=== PATIENT | female | born 1930 | race American Indian/Alaskan Native ===

== ENCOUNTER 2017-08-11 14:03 | Inpatient (IN) | payer MEDICARE, MEDICAID ==
[2017-08-11 15:04] LABS: Hemoglobin 10.4 gm/dl (10.1-14.3); Mean Corpuscular HGB Conc 33 % (30-34); Mean Corpuscular Hemoglobin 27 pg (28-32); Mean Corpuscular Volume 81 fl (79-97); Platelet Count 135 K/mm3 (140-440); Red Blood Count 3.93 M/mm3 (3.65-5.03); Red Cell Distribution Width 13.4 % (13.2-15.2); White Blood Count 6.6 K/mm3 (4.5-11.0)
[2017-08-11 15:20] LABS: Chloride 99.5 mmol/L (98-107); Potassium 4.5 mmol/L (3.6-5.0)
[2017-08-11 15:49] LABS: Basophils % (Manual) 0 % (0.0-1.8); Blastocytes % (Manual) 0 %; Eosinophils % (Manual) 0 % (0.0-4.3)
[2017-08-11 15:50] LABS: Anisocytosis 1+
[2017-08-11 15:51] LABS: Diff Status Complete; Elliptocytes Few; Ovalocytes 1+; Platelet Estimate Consistent w Auto
--- NOTE | 2017-08-11 17:03 | Emergency Department Report ---
HPI - General Chief Complaint: Weakness Time Seen by Provider: 08/11/17 16:27 - HPI HPI: Room 10 The patient is an 87-year-old female presenting with chief complaint of abdominal pain/weakness. Patient informed triage that she was weak for 1 day. During my interview when I asked the patient was she came to the emergency department she replies she has had "pain all in my stomach for 2 days." Patient does admit to nausea and vomiting but denies diarrhea. Patient denies any history of fever. Patient complains of cramping in her legs occasionally but otherwise denies any other forms of pain Location: [See above] Duration: 2 days Quality: Pain Severity: Currently 0/10 Modifying factors: [see above] Context: [see above] Mode of transportation: [not driving] ED Past Medical Hx - Past Medical History Hx Hypertension: Yes Hx Diabetes: Yes Hx Dementia: Yes - Surgical History Past Surgical History?: No - Family History Family history: no significant - Social History Smoking Status: Current Some Day Smoker Substance Use Type: None - Medications Home Medications: Home Medications Medication Instructions Recorded Confirmed Last Taken Type Donepezil HCl [Donepezil HCl Odt] 10 mg PO QHS 07/13/16 07/13/16 Unknown History Folic Acid [Folvite] 1 mg PO QDAY 07/13/16 07/13/16 Unknown History Hydrochlorothiazide [HCTZ] 25 mg PO QDAY 07/13/16 07/13/16 Unknown History Insulin Aspart Prot/Aspart(Nf) 10 units SUB-Q TID 07/13/16 07/13/16 Unknown History [NovoLOG Mix 70/30 VIAL] Losartan [Cozaar] 100 mg PO QDAY 07/13/16 07/13/16 Unknown History Lovastatin [Altoprev] 40 mg PO QPM 07/13/16 07/13/16 Unknown History NIFEdipine [Nifedipine ER] 60 mg PO QDAY 07/13/16 07/13/16 Unknown History Solifenacin Succinate [Vesicare] 5 mg PO QDAY 07/13/16 07/13/16 Unknown History risperiDONE [RisperiDONE] 1 mg PO QHS 07/13/16 07/13/16 Unknown History Clopidogrel [Plavix] 75 mg PO QDAY #30 tablet 07/20/16 Unknown Rx ED Review of Systems ROS: Stated complaint: GENERAL WEAKNESS Other details as noted in HPI Eyes: denies: eye pain ENT: denies: throat pain Cardiovascular: denies: chest pain Gastrointestinal: abdominal pain, nausea, vomiting. denies: diarrhea Genitourinary: denies: dysuria Musculoskeletal: denies: back pain Neurological: denies: headache Physical Exam - Physical Exam Vital Signs: Vital Signs 08/11/17 08/11/17 08/11/17 14:08 14:35 15:00 Temperature 97.8 F 97.9 F Pulse Rate 72 74 Respiratory 18 14 Rate Blood Pressure 118/73 Blood Pressure 110/66 [Right] O2 Sat by Pulse 99 99 89 Oximetry 08/11/17 08/11/17 15:15 15:30 Temperature Pulse Rate 73 71 Respiratory 13 13 Rate Blood Pressure 104/42 89/47 Blood Pressure [Right] O2 Sat by Pulse 100 98 Oximetry Physical Exam: GENERAL: The patient is well-developed well-nourished female lying on stretcher not appearing to be in acute distress. [] HEENT: Normocephalic. Atraumatic. Extraocular motions are intact. NECK: Supple. Trachea midline CHEST/LUNGS: Clear to auscultation. There is no respiratory distress noted. HEART/CARDIOVASCULAR: Regular. There is no tachycardia. There is no gallop rub or murmur. ABDOMEN: Abdomen is soft, nontender. Patient has normal bowel sounds. There is no abdominal distention. SKIN: There is no rash. There is no edema. There is no diaphoresis. NEURO: The patient is awake and alert. The patient is cooperative. The patient has normal speech MUSCULOSKELETAL: There is no evidence of acute injury. ED Course Vital Signs 08/11/17 08/11/17 08/11/17 14:08 14:35 15:00 Temperature 97.8 F 97.9 F Pulse Rate 72 74 Respiratory 18 14 Rate Blood Pressure 118/73 Blood Pressure 110/66 [Right] O2 Sat by Pulse 99 99 89 Oximetry 08/11/17 08/11/17 15:15 15:30 Temperature Pulse Rate 73 71 Respiratory 13 13 Rate Blood Pressure 104/42 89/47 Blood Pressure [Right] O2 Sat by Pulse 100 98 Oximetry ED Medical Decision Making - Lab Data Result diagrams: 08/11/17 14:39 08/11/17 14:39 Laboratory Tests 08/11/17 08/11/17 08/11/17 14:39 14:39 14:39 WBC 6.6 RBC 3.93 Hgb 10.4 Hct 32.0 MCV 81 MCH 27 L MCHC 33 RDW 13.4 Plt Count 135 L Lymph % (Auto) Not Reportable [facility] % (Auto) Not Reportable Eos % (Auto) Not Reportable Baso % (Auto) Not Reportable Lymph # Not Reportable [facility] # Not Reportable Eos # Not Reportable Baso # Not Reportable Add Manual Diff Complete Total Counted 100 Seg Neuts % (Manual) 73.0 H Band Neutrophils % 0 Lymphocytes % (Manual) 19.0 Reactive Lymphs % (Man) 0 Monocytes % (Manual) 8.0 H Eosinophils % (Manual) 0 Basophils % (Manual) 0 Metamyelocytes % 0 Myelocytes % 0 Promyelocytes % 0 Blast Cells % 0 Nucleated RBC % Not Reportable Seg Neutrophils # Not Reportable Seg Neutrophils # Man 4.8 Band Neutrophils # 0.0 Lymphocytes # (Manual) 1.3 Abs React Lymphs (Man) 0.0 Monocytes # (Manual) 0.5 Eosinophils # (Manual) 0.0 Basophils # (Manual) 0.0 Metamyelocytes # 0.0 Myelocytes # 0.0 Promyelocytes # 0.0 Blast Cells # 0.0 WBC Morphology Not Reportable Hypersegmented Neuts Not Reportable Hyposegmented Neuts Not Reportable Hypogranular Neuts Not Reportable Smudge Cells Not Reportable Toxic Granulation Not Reportable Toxic Vacuolation Not Reportable Dohle Bodies Not Reportable Pelger-Huet Anomaly Not Reportable [place] Rods Not Reportable Platelet Estimate Consistent w auto Clumped Platelets Not Reportable Plt Clumps, EDTA Not Reportable Large Platelets Not Reportable Giant Platelets Not Reportable Platelet Satelliting Not Reportable Plt Morphology Comment Not Reportable RBC Morphology Not Reportable Dimorphic RBCs Not Reportable Polychromasia Not Reportable Hypochromasia Not Reportable Poikilocytosis Not Reportable Anisocytosis 1+ Microcytosis Not Reportable Macrocytosis Not Reportable Spherocytes Not Reportable Pappenheimer Bodies Not Reportable Sickle Cells Not Reportable Target Cells Not Reportable Tear Drop Cells Not Reportable Ovalocytes 1+ Helmet Cells Not Reportable Ware-Gervais Bodies Not Reportable [place] Rings Not Reportable Donny Cells Not Reportable Bite Cells Not Reportable Crenated Cell Not Reportable Elliptocytes Few Acanthocytes (Spur) Not Reportable Rouleaux Not Reportable Hemoglobin C Crystals Not Reportable Schistocytes Not Reportable Malaria parasites Not Reportable Paul Bodies Not Reportable Hem Pathologist Commnt No Sodium 140 Potassium 4.5 Chloride 99.5 Carbon Dioxide 25 Anion Gap 20 BUN 53 H Creatinine 2.8 H Estimated GFR 19 BUN/Creatinine Ratio 19 Glucose 76 Calcium 9.0 Troponin T 0.061 H Triglycerides 74 Cholesterol 92 LDL Cholesterol Direct 46 L HDL Cholesterol 32 L Cholesterol/HDL Ratio 2.87 TSH 1.820 Urine Color Urine Turbidity Urine pH Ur Specific [place] Urine Protein Urine Glucose (UA) Urine Ketones Urine Blood Urine Nitrite Urine Bilirubin Urine Urobilinogen Ur Leukocyte Esterase Urine WBC (Auto) Urine RBC (Auto) Urine Mucus 08/11/17 16:45 WBC RBC Hgb Hct MCV MCH MCHC RDW Plt Count Lymph % (Auto) [facility] % (Auto) Eos % (Auto) Baso % (Auto) Lymph # [facility] # Eos # Baso # Add Manual Diff Total Counted Seg Neuts % (Manual) Band Neutrophils % Lymphocytes % (Manual) Reactive Lymphs % (Man) Monocytes % (Manual) Eosinophils % (Manual) Basophils % (Manual) Metamyelocytes % Myelocytes % Promyelocytes % Blast Cells % Nucleated RBC % Seg Neutrophils # Seg Neutrophils # Man Band Neutrophils # Lymphocytes # (Manual) Abs React Lymphs (Man) Monocytes # (Manual) Eosinophils # (Manual) Basophils # (Manual) Metamyelocytes # Myelocytes # Promyelocytes # Blast Cells # WBC Morphology Hypersegmented Neuts Hyposegmented Neuts Hypogranular Neuts Smudge Cells Toxic Granulation Toxic Vacuolation Dohle Bodies Pelger-Huet Anomaly [place] Rods Platelet Estimate Clumped Platelets Plt Clumps, EDTA Large Platelets Giant Platelets Platelet Satelliting Plt Morphology Comment RBC Morphology Dimorphic RBCs Polychromasia Hypochromasia Poikilocytosis Anisocytosis Microcytosis Macrocytosis Spherocytes Pappenheimer Bodies Sickle Cells Target Cells Tear Drop Cells Ovalocytes Helmet Cells Ware-Gervais Bodies [place] Rings Veg[place] Cells Bite Cells Crenated Cell Elliptocytes Acanthocytes (Spur) Rouleaux Hemoglobin C Crystals Schistocytes Malaria parasites Paul Bodies Hem Pathologist Commnt Sodium Potassium Chloride Carbon Dioxide Anion Gap BUN Creatinine Estimated GFR BUN/Creatinine Ratio Glucose Calcium Troponin T Triglycerides Cholesterol LDL Cholesterol Direct HDL Cholesterol Cholesterol/HDL Ratio TSH Urine Color Yellow Urine Turbidity Clear Urine pH 6.0 Ur Specific [place] 1.018 Urine Protein <15 mg/dl Urine Glucose (UA) Neg Urine Ketones Neg Urine Blood Neg Urine Nitrite Neg Urine Bilirubin Neg Urine Urobilinogen < 2.0 Ur Leukocyte Esterase Neg Urine WBC (Auto) < 1.0 Urine RBC (Auto) < 1.0 Urine Mucus Few - Radiology Data Radiology results: report reviewed (CT abdomen and pelvis), image reviewed (CT abdomen and pelvis) - Differential Diagnosis partial small bowel obstruction, gastritis, gastroenteritis Critical care attestation.: If time is entered above; I have spent that time in minutes in the direct care of this critically ill patient, excluding procedure time. ED Disposition Clinical Impression: Acute renal insufficiency, Abdominal pain Disposition: 09 OP ADMIT IP TO THIS HOSP Is pt being admited?: Yes Does the pt Need Aspirin: No Condition: Fair Referrals: PRIMARY CARE, [Primary Care Provider] - 3-5 Days Time of Disposition: 18:41 (hospitalist paged (Dr. Gayle))
[2017-08-11 17:10] LABS: Bilirubin,Urine NEG (Negative); Blood,Urine NEG (Negative); Ketones,Urine NEG (Negative); Leukocyte Esterase,Urine NEG (Negative); Mucus,Urine FEW /HPF; Nitrite,Urine NEG (Negative); Protein,Urine <15 mg/dL mg/dL (Negative); RBC,Urine < 1.0 /HPF (0.0-6.0); Urobilinogen,Urine < 2.0 mg/dL (<2.0)
[2017-08-11 17:16] LABS: WBC,Urine < 1.0 /HPF (0.0-6.0)
--- NOTE | 2017-08-11 18:27 | Cat Scan Report ---
FINAL REPORT EXAM: CT ABDOMEN PELVIS WO CON HISTORY: diffuse abdominal pain, acute renal insufficiency TECHNIQUE: Standard unenhanced CT of the abdomen and pelvis. Coronal and sagittal reconstruction was also performed. PRIORS: None. FINDINGS: In the region of the pancreatic body, to the left of midline, there is a 5.5 x 5.7 x 6.4 cm low-density rounded well-defined cystic focus. Calcification of the wall of this focus is seen (axial image 51). There is close approximation of the splenic artery along its posterior margin so that aneurysm is not excluded. Ultrasound may be of further help. There is a moderate hiatal hernia. Concentric wall thickening of the distal esophagus and the area of the hiatal hernia is seen. Within the abdomen, the liver, spleen, gallbladder, adrenal glands, and kidneys are unremarkable. No evidence for retroperitoneal or pelvic lymphadenopathy is seen. The bowel loops have normal caliber. No fluid collection, inflammatory change, or free air is seen within the abdomen or pelvis. The appendix is normal. Moderate calcification of the aorta is seen. Within the pelvis, the bladder is unremarkable. The uterus is enlarged containing numerous amorphous areas of calcification suggesting underlying fibroid formation. No evidence for mass or lymphadenopathy is seen in the pelvis. Images through the upper abdomen include the lung bases which demonstrate a 5.6 mm rounded density along the right minor fissure, likely a fissural lymph node (axial image 2). In the inferior right breast toward the 6 o'clock position, there is a lobulated soft tissue nodule measuring 1.9 x 1.9 cm (axial image 8). Bony structures show extensive hypertrophic facet joint degenerative changes from L4 through S1 bilaterally. Severe degenerative disc space narrowing at L2-L3 and L5-S1 is noted. IMPRESSION: 1. Rounded focus in the region of the body of the pancreas, probably a cyst with calcification in the wall. Due to its proximity to the splenic artery, and aneurysm is not entirely excluded. Ultrasound would be of further help. 2. Moderate hiatal hernia. Concentric wall thickening of the distal esophagus is noted. Esophagitis versus neoplasm is not excluded. 3. A lobulated soft tissue nodule involving the inferior aspect of the right breast towards 6:00 position. 4. Nonspecific nodule in the right middle lobe, probably a fissural lymph node in the minor fissure 5. Enlarged uterus containing multiple underlying fibroids 6. Extensive degenerative changes in the lower lumbar spine.
--- NOTE | 2017-08-11 18:50 | History and Physical Report ---
History of Present Illness Chief complaint: Pain right here History of present illness: 87 YO Female with HTN, DM, Dementia, Debility, Nicotine Dependence presents to ED for evaluation. Pt unable to provide history due to dementia and confusion, but history taken from ED staff, medical records. Pt acknowledges pain upon questioning, and points to the epigastric area on physical exam. As per ED staff , Pt reports "pain all in my stomach for 2 days." No reports of fever, chills, palpitations, NVD, syncope, trauma, or recent ill contacts. Pt seen and evaluated in ED and found to be confused, but able to protect her airway. 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 Pt admitted to telemetry. Past History Past Medical History: diabetes, hypertension, other (Dementia, Nicotine Dependence) Past Surgical History: No surgical history, Other (reviewed) Social history: single, smoking Family history: diabetes, hypertension Medications and Allergies Allergies Allergy/AdvReac Type Severity Reaction Status Date / Time No Known Allergies Allergy Unverified 07/13/16 09:05 Home Medications Medication Instructions Recorded Confirmed Last Taken Type Donepezil HCl [Donepezil HCl Odt] 10 mg PO QHS 07/13/16 08/11/17 Unknown History Folic Acid [Folvite] 1 mg PO DAILY 07/13/16 08/11/17 Unknown History Hydrochlorothiazide [HCTZ] 25 mg PO DAILY 07/13/16 08/11/17 Unknown History Insulin Aspart Prot/Aspart(Nf) 6 units SUB-Q TID 07/13/16 08/11/17 Unknown History [NovoLOG Mix 70/30 VIAL] Losartan [Cozaar] 100 mg PO DAILY 07/13/16 08/11/17 Unknown History Lovastatin [Altoprev] 40 mg PO QPM 07/13/16 08/11/17 Unknown History NIFEdipine [Nifedipine ER] 60 mg PO DAILY 07/13/16 08/11/17 Unknown History risperiDONE [RisperiDONE] 1 mg PO QHS 07/13/16 08/11/17 Unknown History Benztropine [Cogentin] 2 mg PO DAILY 08/11/17 08/11/17 Unknown History Clopidogrel [Plavix] 75 mg PO DAILY 08/11/17 08/11/17 Unknown History Mirabegron [Myrbetriq] 25 mg PO DAILY 08/11/17 08/11/17 Unknown History Sitagliptin Phosphate [Januvia] 100 mg PO DAILY 08/11/17 08/11/17 Unknown History Review of Systems ROS unobtainable: due to mental status Exam - Constitutional Vitals: Temp Pulse Resp BP Pulse Ox 97.9 F 78 14 125/48 100 08/11/17 14:35 08/11/17 18:30 08/11/17 18:30 08/11/17 18:30 08/11/17 18:30 General appearance: Present: mild distress - EENT Eyes: Present: PERRL ENT: hearing intact, clear oral mucosa - Neck Neck: Present: supple, normal ROM - Respiratory Respiratory effort: normal Respiratory: bilateral: CTA - Cardiovascular Heart Sounds: Present: S1 & S2. Absent: rub, click - Extremities Extremities: pulses symmetrical, No edema Peripheral Pulses: within normal limits - Abdominal General gastrointestinal: Present: soft, non-tender, non-distended, normal bowel sounds Female genitourinary: Present: normal - Integumentary Integumentary: Present: clear, dry, clammy, decreased turgor - Musculoskeletal Musculoskeletal: generalized weakness - Psychiatric Psychiatric: no intact judgment & insight, no memory intact - Neurologic Neurologic: no gait normal Results - Labs CBC & Chem 7: 08/11/17 14:39 08/11/17 14:39 Labs: Abnormal lab results 08/11/17 08/11/17 Range/Units 14:39 14:39 MCH 27 L (28-32) pg Plt Count 135 L (140-440) K/mm3 Seg Neuts % (Manual) 73.0 H (40.0-70.0) % Monocytes % (Manual) 8.0 H (0.0-7.3) % BUN 53 H (7-17) mg/dL Creatinine 2.8 H (0.7-1.2) mg/dL Troponin T 0.061 H (0.00-0.029) ng/mL LDL Cholesterol Direct 46 L (50-130) mg/dL HDL Cholesterol 32 L (40-59) mg/dL Assessment and Plan - Patient Problems (1) ACS (acute coronary syndrome) Current Visit: Yes Status: Acute Plan to address problem: Admit to telemetry: Admit to telemetry, serial cardiac enzymes, EKG, Echo, Cardiology consulted, morphine, Supplemental oxygen, nitro tabs, aspirin (2) ARF (acute renal failure) Current Visit: Yes Status: Acute Plan to address problem: Monitor uop q shift, urine electrolytes, supportive care. (3) HTN (hypertension) Current Visit: Yes Status: Acute Plan to address problem: monitor bp q shift, (4) Debility Current Visit: Yes Status: Acute Plan to address problem: Supportive care, (5) Diabetes Current Visit: No Status: Acute Plan to address problem: ADA diet, insulin, accu check (6) DVT prophylaxis Current Visit: Yes Status: Acute
[2017-08-11] MEDS ORDERED: MORPHINE IV PRN (18:57)
[2017-08-11] MEDS ORDERED: NITROSTAT SL PRN (18:57)
[2017-08-11] MEDS ORDERED: TYLENOL PO PRN (18:57)
[2017-08-11] MEDS ORDERED: SODIUM CHLORIDE FLUSH SYRINGE 10 ML IV PRN (18:57)
[2017-08-11] MEDS ORDERED: BABY ASPIRIN PO STA (18:57)
[2017-08-11] MEDS ORDERED: PROVENTIL IH PRN (18:57)
[2017-08-11] MEDS ORDERED: ZOFRAN IV PRN (18:57)
[2017-08-11] MEDS ORDERED: Fluarix Quad 2017-2018(36 MOS+ IM ONE (21:02)
[2017-08-11] MEDS: NACL 0.45% 1000 ML 1,000 ML IV SCH (21:22)
--- NOTE | 2017-08-12 11:16 | Consultation ---
History of Present Illness Consult date: 08/12/17 Requesting physician: TIFFANIE IRVIN Consult reason: other ("ACS") History of present illness: The pt is an 87 YO female with a past medical history significant for dementia, CVA, HTN, DM. She is previously unknown to our practice. She presented with c/o abdominal pain, nausea and vomiting. She is a rather poor historian and provides no additional details. She denies chest pain. Following admission, troponins were noted to be minimally elevated, serum Cr 2.8, and thus cardiology has been consulted. Past History Past Medical History: diabetes, hypertension, stroke, other (Dementia) Past Surgical History: No surgical history, Other (reviewed) Medications and Allergies Allergies Allergy/AdvReac Type Severity Reaction Status Date / Time No Known Allergies Allergy Unverified 07/13/16 09:05 Home Medications Medication Instructions Recorded Confirmed Last Taken Type Donepezil HCl [Donepezil HCl Odt] 10 mg PO QHS 07/13/16 08/11/17 Unknown History Folic Acid [Folvite] 1 mg PO DAILY 07/13/16 08/11/17 Unknown History Hydrochlorothiazide [HCTZ] 25 mg PO DAILY 07/13/16 08/11/17 Unknown History Insulin Aspart Prot/Aspart(Nf) 6 units SUB-Q TID 07/13/16 08/11/17 Unknown History [NovoLOG Mix 70/30 VIAL] Losartan [Cozaar] 100 mg PO DAILY 07/13/16 08/11/17 Unknown History Lovastatin [Altoprev] 40 mg PO QPM 07/13/16 08/11/17 Unknown History NIFEdipine [Nifedipine ER] 60 mg PO DAILY 07/13/16 08/11/17 Unknown History risperiDONE [RisperiDONE] 1 mg PO QHS 07/13/16 08/11/17 Unknown History Benztropine [Cogentin] 2 mg PO DAILY 08/11/17 08/11/17 Unknown History Clopidogrel [Plavix] 75 mg PO DAILY 08/11/17 08/11/17 Unknown History Mirabegron [Myrbetriq] 25 mg PO DAILY 08/11/17 08/11/17 Unknown History Sitagliptin Phosphate [Januvia] 100 mg PO DAILY 08/11/17 08/11/17 Unknown History Active Meds: Active Medications Acetaminophen (Tylenol) 650 mg PO Q4H PRN PRN Reason: Pain MILD(1-3)/Fever >100.5/MORALES Albuterol (Proventil) 2.5 mg IH Q4HRT PRN PRN Reason: Shortness Of Breath Sodium Chloride (Nacl 0.45% 1000 Ml) 1,000 mls @ 42 mls/hr IV DIRECT PRISCA Last Admin: 08/11/17 21:22 Dose: 42 mls/hr Influenza Virus Vaccine Quadrival (Fluarix Quad [id number](36 Mos+) 0.5 ml IM .ONCE ONE Stop: 08/12/17 12:01 Morphine Sulfate (Morphine) 2 mg IV Q4H PRN PRN Reason: Pain, Moderate (4-6) Nitroglycerin (Nitrostat) 0.4 mg SL Q5M PRN PRN Reason: Chest Pain Ondansetron HCl (Zofran) 4 mg IV Q8H PRN PRN Reason: N/V unrelieved by Reglan Sodium Chloride (Sodium Chloride Flush Syringe 10 Ml) 10 ml IV PRN PRN PRN Reason: LINE FLUSH Review of Systems All systems: negative Gastrointestinal: abdominal pain, nausea, vomiting Physical Examination Vital Signs Temp Pulse Resp BP Pulse Ox 97.8 F 72 18 118/73 99 08/11/17 14:08 08/11/17 14:08 08/11/17 14:08 08/11/17 14:08 08/11/17 14:08 General appearance: no acute distress HEENT: Positive: PERRL, Normocephaly, Mucus Membranes Moist Neck: Positive: neck supple, trachea midline Cardiac: Positive: Reg Rate and Rhythm, S1/S2 Lungs: Positive: clear to auscultation Neuro: Positive: Grossly Intact, Cranial Nerve 2-12 Intact Abdomen: Positive: Unremarkable, Soft, Active Bowel Sounds. Negative: Tender Skin: Positive: Clear. Negative: Rash, Wound Musculoskeletal: No Fluid Collection, No Pain, Normal Range of Motion Extremities: Absent: edema Results 08/11/17 14:39 08/11/17 14:39 Lipids 08/11/17 Range/Units 14:39 Triglycerides 74 (2-149) mg/dL Cholesterol 92 (50-199) mg/dL HDL Cholesterol 32 L (40-59) mg/dL Cholesterol/HDL Ratio 2.87 % CBC 08/11/17 Range/Units 14:39 WBC 6.6 (4.5-11.0) K/mm3 RBC 3.93 (3.65-5.03) M/mm3 Hgb 10.4 (10.1-14.3) gm/dl Hct 32.0 (30.3-42.9) % Plt Count 135 L (140-440) K/mm3 Lymph # Not Reportable [place] # Not Reportable Eos # Not Reportable Baso # Not Reportable Comprehensive Metabolic Panel 08/11/17 Range/Units 14:39 Sodium 140 (137-145) mmol/L Potassium 4.5 (3.6-5.0) mmol/L Chloride 99.5 (98-107) mmol/L Carbon Dioxide 25 (22-30) mmol/L BUN 53 H (7-17) mg/dL Creatinine 2.8 H (0.7-1.2) mg/dL Glucose 76 (65-100) mg/dL Calcium 9.0 (8.4-10.2) mg/dL - Imaging and Cardiology Echo: pending EKG: report reviewed, image reviewed EKG interpretations - Telemetry EKG Rhythm: Sinus Rhythm - EKG Sinus rhythms and dysrhythmias: sinus rhythm Assessment and Plan Assessment: Abdominal pain / nausea & vomiting Minimally elevated troponins - negative for AMI; trending downwards; ECG with NAF; pt denies chest pain Acute renal failure on ? CKD HTN DM H/o CVA per pt repot H/o dementia Plan: Obtain echo. No indication for ischemic evaluation at this time. Monitor renal indices. Recommend nephrology consultation per primary. The patient has been seen in conjunction with Dr. Joe Andrew who agrees with the assessment and plan of care.
[2017-08-12] MEDS ORDERED: Fluarix Quad 2017-2018(36 MOS+ IM ONE (12:00)
[2017-08-12] MEDS ORDERED: CITRATE OF MAGNESIA PO PRN (12:18)
[2017-08-12 12:55] LABS: Calcium 8.8 mg/dL (8.4-10.2); Chloride 102.8 mmol/L (98-107); Potassium 4.3 mmol/L (3.6-5.0)
[2017-08-12] MEDS ORDERED: D50W (25GM) Syringe IV PRN (17:01)
--- NOTE | 2017-08-12 17:18 | Progress Note ---
Assessment and Plan Assessment and plan: Epigastric/chest pain NSTEMI History of CVA Dementia Hypertension Debility Acute on chronic kidney disease - Cardiology consulted and echo was done showed diastolic dysfunction - No further cardiac workup needed - Appropriate home medications restarted - PT/OT consulted DVT prophylaxis - Heparin Disposition - Continue inpatient care History Interval history: Patient was seen and evaluated at the bedside, patient said she had epigastric pain, but at the time of examination didn't have any pain. No family member was in the room, patient has dementia. Hospitalist Physical - Physical exam Narrative exam: Not in cardiopulmonary distress. The patient appeared well nourished and normally developed. Vital signs as documented. Head exam is unremarkable. No scleral icterus . Neck is without jugular venous distension, thyromegaly, or carotid bruits. Lungs are clear to auscultation. Cardiac exam reveals regular rate and Rhythm. First and second heart sounds normal. No murmurs, rubs or gallops. Abdominal exam reveals normal bowel sounds, no masses, no organomegaly and no aortic enlargement. Extremities are nonedematous and both femoral and pedal pulses are normal. 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 No focal weakness. - Constitutional Vitals: Temp Pulse Resp BP Pulse Ox 97.6 F 68 18 112/52 99 08/12/17 08:06 08/12/17 12:00 08/12/17 08:06 08/12/17 08:07 08/12/17 08:07 General appearance: Present: no acute distress Results - Labs CBC & Chem 7: 08/11/17 14:39 08/12/17 11:57 Labs: Laboratory Last Values WBC 6.6 K/mm3 (4.5-11.0) 08/11/17 14:39 RBC 3.93 M/mm3 (3.65-5.03) 08/11/17 14:39 Hgb 10.4 gm/dl (10.1-14.3) 08/11/17 14:39 Hct 32.0 % (30.3-42.9) 08/11/17 14:39 MCV 81 fl (79-97) 08/11/17 14:39 MCH 27 pg (28-32) L 08/11/17 14:39 MCHC 33 % (30-34) 08/11/17 14:39 RDW 13.4 % (13.2-15.2) 08/11/17 14:39 Plt Count 135 K/mm3 (140-440) L 08/11/17 14:39 Lymph % (Auto) Not Reportable 08/11/17 14:39 [place] % (Auto) Not Reportable 08/11/17 14:39 Eos % (Auto) Not Reportable 08/11/17 14:39 Baso % (Auto) Not Reportable 08/11/17 14:39 Lymph # Not Reportable 08/11/17 14:39 [place] # Not Reportable 08/11/17 14:39 Eos # Not Reportable 08/11/17 14:39 Baso # Not Reportable 08/11/17 14:39 Add Manual Diff Complete 08/11/17 14:39 Total Counted 100 08/11/17 14:39 Seg Neuts % (Manual) 73.0 % (40.0-70.0) H 08/11/17 14:39 Band Neutrophils % 0 % 08/11/17 14:39 Lymphocytes % (Manual) 19.0 % (13.4-35.0) 08/11/17 14:39 Reactive Lymphs % (Man) 0 % 08/11/17 14:39 Monocytes % (Manual) 8.0 % (0.0-7.3) H 08/11/17 14:39 Eosinophils % (Manual) 0 % (0.0-4.3) 08/11/17 14:39 Basophils % (Manual) 0 % (0.0-1.8) 08/11/17 14:39 Metamyelocytes % 0 % 08/11/17 14:39 Myelocytes % 0 % 08/11/17 14:39 Promyelocytes % 0 % 08/11/17 14:39 Blast Cells % 0 % 08/11/17 14:39 Nucleated RBC % Not Reportable 08/11/17 14:39 Seg Neutrophils # Not Reportable 08/11/17 14:39 Seg Neutrophils # Man 4.8 K/mm3 (1.8-7.7) 08/11/17 14:39 Band Neutrophils # 0.0 K/mm3 08/11/17 14:39 Lymphocytes # (Manual) 1.3 K/mm3 (1.2-5.4) 08/11/17 14:39 Abs React Lymphs (Man) 0.0 K/mm3 08/11/17 14:39 Monocytes # (Manual) 0.5 K/mm3 (0.0-0.8) 08/11/17 14:39 Eosinophils # (Manual) 0.0 K/mm3 (0.0-0.4) 08/11/17 14:39 Basophils # (Manual) 0.0 K/mm3 (0.0-0.1) 08/11/17 14:39 Metamyelocytes # 0.0 K/mm3 08/11/17 14:39 Myelocytes # 0.0 K/mm3 08/11/17 14:39 Promyelocytes # 0.0 K/mm3 08/11/17 14:39 Blast Cells # 0.0 K/mm3 08/11/17 14:39 WBC Morphology Not Reportable 08/11/17 14:39 Hypersegmented Neuts Not Reportable 08/11/17 14:39 Hyposegmented Neuts Not Reportable 08/11/17 14:39 Hypogranular Neuts Not Reportable 08/11/17 14:39 Smudge Cells Not Reportable 08/11/17 14:39 Toxic Granulation Not Reportable 08/11/17 14:39 Toxic Vacuolation Not Reportable 08/11/17 14:39 Dohle Bodies Not Reportable 08/11/17 14:39 Pelger-Huet Anomaly Not Reportable 08/11/17 14:39 [place] Rods Not Reportable 08/11/17 14:39 Platelet Estimate Consistent w auto 08/11/17 14:39 Clumped Platelets Not Reportable 08/11/17 14:39 Plt Clumps, EDTA Not Reportable 08/11/17 14:39 Large Platelets Not Reportable 08/11/17 14:39 Giant Platelets Not Reportable 08/11/17 14:39 Platelet Satelliting Not Reportable 08/11/17 14:39 Plt Morphology Comment Not Reportable 08/11/17 14:39 RBC Morphology Not Reportable 08/11/17 14:39 Dimorphic RBCs Not Reportable 08/11/17 14:39 Polychromasia Not Reportable 08/11/17 14:39 Hypochromasia Not Reportable 08/11/17 14:39 Poikilocytosis Not Reportable 08/11/17 14:39 Anisocytosis 1+ 08/11/17 14:39 Microcytosis Not Reportable 08/11/17 14:39 Macrocytosis Not Reportable 08/11/17 14:39 Spherocytes Not Reportable 08/11/17 14:39 Pappenheimer Bodies Not Reportable 08/11/17 14:39 Sickle Cells Not Reportable 08/11/17 14:39 Target Cells Not Reportable 08/11/17 14:39 Tear Drop Cells Not Reportable 08/11/17 14:39 Ovalocytes 1+ 08/11/17 14:39 Helmet Cells Not Reportable 08/11/17 14:39 [place] Bodies Not Reportable 08/11/17 14:39 [place] Rings Not Reportable 08/11/17 14:39 [place] Cells Not Reportable 08/11/17 14:39 Bite Cells Not Reportable 08/11/17 14:39 Crenated Cell Not Reportable 08/11/17 14:39 Elliptocytes Few 08/11/17 14:39 Acanthocytes (Spur) Not Reportable 08/11/17 14:39 Rouleaux Not Reportable 08/11/17 14:39 Hemoglobin C Crystals Not Reportable 08/11/17 14:39 Schistocytes Not Reportable 08/11/17 14:39 Malaria parasites Not Reportable 08/11/17 14:39 Paul Bodies Not Reportable 08/11/17 14:39 Hem Pathologist Commnt No 08/11/17 14:39 Sodium 141 mmol/L (137-145) 08/12/17 11:57 Potassium 4.3 mmol/L (3.6-5.0) 08/12/17 11:57 Chloride 102.8 mmol/L (98-107) 08/12/17 11:57 Carbon Dioxide 24 mmol/L (22-30) 08/12/17 11:57 Anion Gap 19 mmol/L 08/12/17 11:57 BUN 43 mg/dL (7-17) H 08/12/17 11:57 Creatinine 1.9 mg/dL (0.7-1.2) H 08/12/17 11:57 Estimated GFR 30 ml/min 08/12/17 11:57 BUN/Creatinine Ratio 23 % 08/12/17 11:57 Glucose 116 mg/dL (65-100) H 08/12/17 11:57 POC Glucose 126 (70-105) H 08/12/17 12:35 Calcium 8.8 mg/dL (8.4-10.2) 08/12/17 11:57 Troponin T 0.046 ng/mL (0.00-0.029) H 08/12/17 00:33 Triglycerides 74 mg/dL (2-149) 08/11/17 14:39 Cholesterol 92 mg/dL (50-199) 08/11/17 14:39 LDL Cholesterol Direct 46 mg/dL (50-130) L 08/11/17 14:39 HDL Cholesterol 32 mg/dL (40-59) L 08/11/17 14:39 Cholesterol/HDL Ratio 2.87 % 08/11/17 14:39 TSH 1.820 mlU/mL (0.270-4.200) 08/11/17 14:39 Urine Color Yellow (Yellow) 08/11/17 16:45 Urine Turbidity Clear (Clear) 08/11/17 16:45 Urine pH 6.0 (5.0-7.0) 08/11/17 16:45 Ur Specific [place] 1.018 (1.003-1.030) 08/11/17 16:45 Urine Protein <15 mg/dl mg/dL (Negative) 08/11/17 16:45 Urine Glucose (UA) Neg mg/dL (Negative) 08/11/17 16:45 Urine Ketones Neg mg/dL (Negative) 08/11/17 16:45 Urine Blood Neg (Negative) 08/11/17 16:45 Urine Nitrite Neg (Negative) 08/11/17 16:45 Urine Bilirubin Neg (Negative) 08/11/17 16:45 Urine Urobilinogen < 2.0 mg/dL (<2.0) 08/11/17 16:45 Ur Leukocyte Esterase Neg (Negative) 08/11/17 16:45 Urine WBC (Auto) < 1.0 /HPF (0.0-6.0) 08/11/17 16:45 Urine RBC (Auto) < 1.0 /HPF (0.0-6.0) 08/11/17 16:45 Urine Mucus Few /HPF 08/11/17 16:45
[2017-08-12] MEDS ORDERED: NON-FORMULARY (Lovastatin [Altoprev] 40 MG) PO SCH (18:00)
[2017-08-12] MEDS: ARICEPT PO SCH (21:58)
[2017-08-12] MEDS: PROTONIX PO SCH (21:58)
[2017-08-12] MEDS: PRAVACHOL PO SCH (21:58)
[2017-08-12] MEDS: HEPARIN SUB-Q SCH (21:58)
[2017-08-12] MEDS: RisperDAL PO SCH (21:58)
[2017-08-12] MEDS: NOVOLOG SUB-Q SCH (21:59)
[2017-08-12] MEDS ORDERED: NON-FORMULARY (Donepezil Hcl [Donepezil Hcl Odt] 10 MG) PO SCH (22:00)
[2017-08-13] MEDS: LEVEMIR SUB-Q SCH ×2 (02:13→21:41)
[2017-08-13] MEDS: NACL 0.45% 1000 ML 1,000 ML IV SCH (03:24)
[2017-08-13 07:35] LABS: Calcium 8.7 mg/dL (8.4-10.2); Chloride 100.6 mmol/L (98-107); Potassium 4.2 mmol/L (3.6-5.0)
[2017-08-13] MEDS: NOVOLOG SUB-Q SCH ×3 (08:45→21:42)
[2017-08-13] MEDS: PROCARDIA XL PO SCH (09:03)
[2017-08-13] MEDS: PROTONIX PO SCH (09:03)
[2017-08-13] MEDS: COGENTIN PO SCH (09:03)
[2017-08-13] MEDS: PLAVIX PO SCH (09:04)
[2017-08-13] MEDS: FOLVITE PO SCH (09:04)
[2017-08-13] MEDS: HEPARIN SUB-Q SCH ×2 (09:05→21:41)
[2017-08-13] MEDS ORDERED: NON-FORMULARY (Mirabegron [Myrbetriq] 25 MG) PO SCH (10:00)
--- NOTE | 2017-08-13 14:26 | Progress Note ---
Assessment and Plan Assessment: Abdominal pain / nausea & vomiting - currently resolved Minimally elevated troponins - AMI ruled out; trending downwards; ECG with NAF; pt denies chest pain Acute renal failure on ? CKD HTN DM H/o CVA per pt repot H/o dementia Plan: Echo reviewed - EF 55-60%, impaired relaxation, mild pulm HTN. Currently stable cardiac status. No indication for ischemic evaluation at this time. Nothing further to add from cardiac perspective at this time. Will follow on as needed basis. Recommend pt follow up in our office with Heather Bermudez NP, within 1-2 weeks of hospital discharge ([phone]) The patient has been seen in conjunction with Dr. Joe Andrew who agrees with the assessment and plan of care. Subjective Date of service: 08/13/17 Principal diagnosis: abdominal pain Interval history: pt resting comfortably in bed, denies any current complaints. Objective Last Vital Signs Temp 97.9 F 08/13/17 05:35 Pulse 75 08/13/17 05:35 Resp 20 08/13/17 05:35 BP 124/57 08/13/17 05:35 Pulse Ox 98 08/13/17 05:35 - Physical Examination General: No Apparent Distress HEENT: Positive: PERRL, Normocephaly, Mucus Membranes Moist Neck: Positive: neck supple, trachea midline Cardiac: Positive: Reg Rate and Rhythm, S1/S2 Lungs: Positive: clear to auscultation Neuro: Positive: Grossly Intact, Cranial Nerve 2-12 Intact Abdomen: Positive: Unremarkable, Soft, Active Bowel Sounds. Negative: Tender Skin: Positive: Clear. Negative: Rash, Wound Musculoskeletal: No Fluid Collection, No Pain, Normal Range of Motion Extremities: Absent: edema - Labs and Meds Comprehensive Metabolic Panel 08/13/17 Range/Units 06:18 Sodium 140 (137-145) mmol/L Potassium 4.2 (3.6-5.0) mmol/L Chloride 100.6 (98-107) mmol/L Carbon Dioxide 23 (22-30) mmol/L BUN 37 H (7-17) mg/dL Creatinine 1.7 H (0.7-1.2) mg/dL Glucose 101 H (65-100) mg/dL Calcium 8.7 (8.4-10.2) mg/dL - Imaging and Cardiology EKG: report reviewed, image reviewed Echo: pending - EKG Sinus rhythms and dysrhythmias: sinus rhythm
--- NOTE | 2017-08-13 17:00 | Progress Note ---
Assessment and Plan Assessment and plan: Epigastric/chest pain NSTEMI History of CVA Dementia Hypertension Debility Acute on chronic kidney disease - Cardiology consulted and echo was done showed diastolic dysfunction - No further cardiac workup needed - Appropriate home medications restarted - PT/OT consulted DVT prophylaxis - Heparin Disposition -Possible discharge tomorrow with home health. History Interval history: Patient was seen and evaluated at the bedside, patient denied chest pain. Hospitalist Physical - Physical exam Narrative exam: Not in cardiopulmonary distress. The patient is friable. Vital signs as documented. Head exam is unremarkable. No scleral icterus . Neck is without jugular venous distension, thyromegaly, or carotid bruits. Lungs are clear to auscultation. Cardiac exam reveals regular rate and Rhythm. First and second heart sounds normal. No murmurs, rubs or gallops. Abdominal exam reveals normal bowel sounds, no masses, no organomegaly and no aortic enlargement. Extremities are nonedematous and both femoral and pedal pulses are normal. 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 No focal weakness. - Constitutional Vitals: Temp Pulse Resp BP Pulse Ox 97.9 F 75 20 124/57 98 08/13/17 05:35 08/13/17 05:35 08/13/17 05:35 08/13/17 05:35 08/13/17 05:35 General appearance: Present: no acute distress Results - Labs CBC & Chem 7: 08/11/17 14:39 08/13/17 06:18 Labs: Laboratory Last Values WBC 6.6 K/mm3 (4.5-11.0) 08/11/17 14:39 RBC 3.93 M/mm3 (3.65-5.03) 08/11/17 14:39 Hgb 10.4 gm/dl (10.1-14.3) 08/11/17 14:39 Hct 32.0 % (30.3-42.9) 08/11/17 14:39 MCV 81 fl (79-97) 08/11/17 14:39 MCH 27 pg (28-32) L 08/11/17 14:39 MCHC 33 % (30-34) 08/11/17 14:39 RDW 13.4 % (13.2-15.2) 08/11/17 14:39 Plt Count 135 K/mm3 (140-440) L 08/11/17 14:39 Lymph % (Auto) Not Reportable 08/11/17 14:39 [place] % (Auto) Not Reportable 08/11/17 14:39 Eos % (Auto) Not Reportable 08/11/17 14:39 Baso % (Auto) Not Reportable 08/11/17 14:39 Lymph # Not Reportable 08/11/17 14:39 [place] # Not Reportable 08/11/17 14:39 Eos # Not Reportable 08/11/17 14:39 Baso # Not Reportable 08/11/17 14:39 Add Manual Diff Complete 08/11/17 14:39 Total Counted 100 08/11/17 14:39 Seg Neuts % (Manual) 73.0 % (40.0-70.0) H 08/11/17 14:39 Band Neutrophils % 0 % 08/11/17 14:39 Lymphocytes % (Manual) 19.0 % (13.4-35.0) 08/11/17 14:39 Reactive Lymphs % (Man) 0 % 08/11/17 14:39 Monocytes % (Manual) 8.0 % (0.0-7.3) H 08/11/17 14:39 Eosinophils % (Manual) 0 % (0.0-4.3) 08/11/17 14:39 Basophils % (Manual) 0 % (0.0-1.8) 08/11/17 14:39 Metamyelocytes % 0 % 08/11/17 14:39 Myelocytes % 0 % 08/11/17 14:39 Promyelocytes % 0 % 08/11/17 14:39 Blast Cells % 0 % 08/11/17 14:39 Nucleated RBC % Not Reportable 08/11/17 14:39 Seg Neutrophils # Not Reportable 08/11/17 14:39 Seg Neutrophils # Man 4.8 K/mm3 (1.8-7.7) 08/11/17 14:39 Band Neutrophils # 0.0 K/mm3 08/11/17 14:39 Lymphocytes # (Manual) 1.3 K/mm3 (1.2-5.4) 08/11/17 14:39 Abs React Lymphs (Man) 0.0 K/mm3 08/11/17 14:39 Monocytes # (Manual) 0.5 K/mm3 (0.0-0.8) 08/11/17 14:39 Eosinophils # (Manual) 0.0 K/mm3 (0.0-0.4) 08/11/17 14:39 Basophils # (Manual) 0.0 K/mm3 (0.0-0.1) 08/11/17 14:39 Metamyelocytes # 0.0 K/mm3 08/11/17 14:39 Myelocytes # 0.0 K/mm3 08/11/17 14:39 Promyelocytes # 0.0 K/mm3 08/11/17 14:39 Blast Cells # 0.0 K/mm3 08/11/17 14:39 WBC Morphology Not Reportable 08/11/17 14:39 Hypersegmented Neuts Not Reportable 08/11/17 14:39 Hyposegmented Neuts Not Reportable 08/11/17 14:39 Hypogranular Neuts Not Reportable 08/11/17 14:39 Smudge Cells Not Reportable 08/11/17 14:39 Toxic Granulation Not Reportable 08/11/17 14:39 Toxic Vacuolation Not Reportable 08/11/17 14:39 Dohle Bodies Not Reportable 08/11/17 14:39 Pelger-Huet Anomaly Not Reportable 08/11/17 14:39 [place] Rods Not Reportable 08/11/17 14:39 Platelet Estimate Consistent w auto 08/11/17 14:39 Clumped Platelets Not Reportable 08/11/17 14:39 Plt Clumps, EDTA Not Reportable 08/11/17 14:39 Large Platelets Not Reportable 08/11/17 14:39 Giant Platelets Not Reportable 08/11/17 14:39 Platelet Satelliting Not Reportable 08/11/17 14:39 Plt Morphology Comment Not Reportable 08/11/17 14:39 RBC Morphology Not Reportable 08/11/17 14:39 Dimorphic RBCs Not Reportable 08/11/17 14:39 Polychromasia Not Reportable 08/11/17 14:39 Hypochromasia Not Reportable 08/11/17 14:39 Poikilocytosis Not Reportable 08/11/17 14:39 Anisocytosis 1+ 08/11/17 14:39 Microcytosis Not Reportable 08/11/17 14:39 Macrocytosis Not Reportable 08/11/17 14:39 Spherocytes Not Reportable 08/11/17 14:39 Pappenheimer Bodies Not Reportable 08/11/17 14:39 Sickle Cells Not Reportable 08/11/17 14:39 Target Cells Not Reportable 08/11/17 14:39 Tear Drop Cells Not Reportable 08/11/17 14:39 Ovalocytes 1+ 08/11/17 14:39 Helmet Cells Not Reportable 08/11/17 14:39 [place] Bodies Not Reportable 08/11/17 14:39 [place] Rings Not Reportable 08/11/17 14:39 [place] Cells Not Reportable 08/11/17 14:39 Bite Cells Not Reportable 08/11/17 14:39 Crenated Cell Not Reportable 08/11/17 14:39 Elliptocytes Few 08/11/17 14:39 Acanthocytes (Spur) Not Reportable 08/11/17 14:39 Rouleaux Not Reportable 08/11/17 14:39 Hemoglobin C Crystals Not Reportable 08/11/17 14:39 Schistocytes Not Reportable 08/11/17 14:39 Malaria parasites Not Reportable 08/11/17 14:39 Paul Bodies Not Reportable 08/11/17 14:39 Hem Pathologist Commnt No 08/11/17 14:39 Sodium 140 mmol/L (137-145) 08/13/17 06:18 Potassium 4.2 mmol/L (3.6-5.0) 08/13/17 06:18 Chloride 100.6 mmol/L (98-107) 08/13/17 06:18 Carbon Dioxide 23 mmol/L (22-30) 08/13/17 06:18 Anion Gap 21 mmol/L 08/13/17 06:18 BUN 37 mg/dL (7-17) H 08/13/17 06:18 Creatinine 1.7 mg/dL (0.7-1.2) H 08/13/17 06:18 Estimated GFR 35 ml/min 08/13/17 06:18 BUN/Creatinine Ratio 22 % 08/13/17 06:18 Glucose 101 mg/dL (65-100) H 08/13/17 06:18 POC Glucose 130 (70-105) H 08/12/17 20:56 Calcium 8.7 mg/dL (8.4-10.2) 08/13/17 06:18 Troponin T 0.046 ng/mL (0.00-0.029) H 08/12/17 00:33 Triglycerides 74 mg/dL (2-149) 08/11/17 14:39 Cholesterol 92 mg/dL (50-199) 08/11/17 14:39 LDL Cholesterol Direct 46 mg/dL (50-130) L 08/11/17 14:39 HDL Cholesterol 32 mg/dL (40-59) L 08/11/17 14:39 Cholesterol/HDL Ratio 2.87 % 08/11/17 14:39 TSH 1.820 mlU/mL (0.270-4.200) 08/11/17 14:39 Urine Color Yellow (Yellow) 08/11/17 16:45 Urine Turbidity Clear (Clear) 08/11/17 16:45 Urine pH 6.0 (5.0-7.0) 08/11/17 16:45 Ur Specific [place] 1.018 (1.003-1.030) 08/11/17 16:45 Urine Protein <15 mg/dl mg/dL (Negative) 08/11/17 16:45 Urine Glucose (UA) Neg mg/dL (Negative) 08/11/17 16:45 Urine Ketones Neg mg/dL (Negative) 08/11/17 16:45 Urine Blood Neg (Negative) 08/11/17 16:45 Urine Nitrite Neg (Negative) 08/11/17 16:45 Urine Bilirubin Neg (Negative) 08/11/17 16:45 Urine Urobilinogen < 2.0 mg/dL (<2.0) 08/11/17 16:45 Ur Leukocyte Esterase Neg (Negative) 08/11/17 16:45 Urine WBC (Auto) < 1.0 /HPF (0.0-6.0) 08/11/17 16:45 Urine RBC (Auto) < 1.0 /HPF (0.0-6.0) 08/11/17 16:45 Urine Mucus Few /HPF 08/11/17 16:45
[2017-08-13] MEDS: RisperDAL PO SCH (21:41)
[2017-08-13] MEDS: PRAVACHOL PO SCH (21:41)
[2017-08-13] MEDS: ARICEPT PO SCH (21:41)
[2017-08-14 07:36] LABS: Calcium 8.5 mg/dL (8.4-10.2); Chloride 99.1 mmol/L (98-107); Potassium 4.3 mmol/L (3.6-5.0)
[2017-08-14] MEDS: NOVOLOG SUB-Q SCH ×2 (10:07→12:31)
--- NOTE | 2017-08-14 10:16 | Discharge Summary ---
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 Pt unable to provide history due to dementia and confusion, but history taken from ED staff, medical records. Pt acknowledges pain upon questioning, and points to the epigastric area on physical exam. As per ED staff , Pt reports "pain all in my stomach for 2 days." No reports of fever, chills, palpitations, NVD, syncope, trauma, or recent ill contacts. Pt seen and evaluated in ED and found to be confused, but able to protect her airway. Pt found to have elevated cardiac enzymes, and due to inability to provide detailed history, as well as cardiac risk factors, Pt has suspected ACS with concomitant acute renal failure. Pt admitted to telemetry. Patient has history of CKD and currently Cr elevated from baseline. Patient was treated with IV fluids. patient denied chest pain and had epigastric pain that already resolved. Patient came from personal home care. was evaluated by cardiology and recommended echo and result as stated above. No need of ischemic work up at this time. PT evaluated and recommended home PT. patient discharged back [facility] with home PT. Patient was hemoynamically stable at the time of discharged. Creatinine was at base line at the time of discharge and advised to have nephrology follow up as an O/P. patient was hemodynamically stable at the time of discharge. Disposition: [id number]/[place]-06 HOME UNDER HOME HL Time spent for discharge: 31 minutes - Discharge Diagnoses (1) Acute on chronic renal insufficiency Status: Acute (2) HTN (hypertension) Status: Acute Core Measure Documentation - Palliative Care Palliative Care/ Comfort Measures: Not Applicable - Core Measures Any of the following diagnoses?: none Exam - Physical Exam Narrative exam: Not in cardiopulmonary distress. The patient is friable. Vital signs as documented. Head exam is unremarkable. No scleral icterus . Neck is without jugular venous distension, thyromegaly, or carotid bruits. Lungs are clear to auscultation. Cardiac exam reveals regular rate and Rhythm. First and second heart sounds normal. No murmurs, rubs or gallops. Abdominal exam reveals normal bowel sounds, no masses, no organomegaly and no aortic enlargement. Extremities are nonedematous and both femoral and pedal pulses are normal. 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 No focal weakness. - Constitutional Vitals: Temp Pulse Resp BP Pulse Ox 98.7 F 67 22 136/56 97 08/14/17 05:12 08/14/17 05:12 08/14/17 05:12 08/14/17 05:12 08/14/17 05:12 Plan Activity: no restrictions Weight Bearing Status: Full Weight Bearing Diet: low cholesterol, low salt Follow up with: JUAN FERRIS MD [Primary Care Provider] - 3-5 Days EFRAIN WEBB MD [Staff Physician] - 14 Days
[2017-08-14 11:09] VITALS: BP 133/48
[2017-08-14] MEDS: HEPARIN SUB-Q SCH (11:10)
[2017-08-14] MEDS: PLAVIX PO SCH (11:12)
[2017-08-14] MEDS: FOLVITE PO SCH (11:13)
[2017-08-14] MEDS: PROTONIX PO SCH (11:13)
[2017-08-14] MEDS: COGENTIN PO SCH (11:14)
[2017-08-14] MEDS: PROCARDIA XL PO SCH (11:15)
--- NOTE | 2017-08-14 13:37 | Query- Renal Failure ---
Deadre Nazario____Josey Date:____08/14/17 Aeronautical Design Engineer/CDS:___Tomás Phone#:___[phone] Exercise your independent professional judgment when responding to query. Questions asked do not imply a particular answer is desired or expected. We greatly appreciate your clarification on this issue. Clinical Documentation States: 87 year old female was admitted on 08/11/17 The discharge summary (Dr. Dowling) states " - Discharge Diagnoses (1) Acute on chronic renal insufficiency " The H&P (Dr. Gayle) states " 87 YO Female with HTN, DM, Dementia, Debility, Nicotine Dependence presents to ED for evaluation." Clinical Findings Show: 08/11/17 08/14/17 Creatinine: 2.8 1.9 BUN/Creatinine Ratio: 19 21 Please clarify if you mean: Acute Renal Failure with or due to: [ ] Tubular Necrosis [ ] Medullary Necrosis [ x] Vasomotor Nephropathy [ ] Shock Kidney [ ] Tubular Nephrosis [ ] Renal Tubular Stasis [ ] Cortical Necrosis [ ] Acute Renal Failure (unspecified) [ ] Lower Tubular Nephrosis [ ] Other: [ ] Not Applicable Present on Admission: [x ] Yes (Y) [ ] Clinically undeterminable (W) [ ] No (N) Please also document response in your Progress Notes and/or Discharge Summary and indicate if the condition was present on admission. KELLEY
== END 2017-08-14 15:45 | disposition home health service (06) | DRG 280 ==
LOC: ED 14:03 → 4A 18:57
PROVIDERS: ADMIT Internal Medicine; ATTEND Internal Medicine
PROC: 3E0234Z Introduction of Serum, Toxoid and Vaccine into Muscle, Percutaneous Approach (ICD-10-PCS; principal; 2017-08-12)
DX: I21.4 Non-ST elevation (NSTEMI) myocardial infarction (principal); N17.0 Acute kidney failure with tubular necrosis; R53.81 Other malaise; I12.9 Hypertensive chronic kidney disease with stage 1 through stage 4 chronic kidney disease, or unspecified chronic kidney disease; N18.9 Chronic kidney disease, unspecified; I27.20 Pulmonary hypertension, unspecified; E11.22 Type 2 diabetes mellitus with diabetic chronic kidney disease; F03.90 Unspecified dementia, unspecified severity, without behavioral disturbance, psychotic disturbance, mood disturbance, and anxiety; F17.200 Nicotine dependence, unspecified, uncomplicated; Z82.49 Family history of ischemic heart disease and other diseases of the circulatory system; Z83.3 Family history of diabetes mellitus; Z23 Encounter for immunization; Z86.73 Personal history of transient ischemic attack (TIA), and cerebral infarction without residual deficits
CPT/HCPCS: 36415; 74176; 80048; 80061; 81001; 82962; 84443; 84484; 85007; 85025; 87086; 90686; 93005; 93010; 93306; 99285; A9270-GY; G8978-GP; G8979-GP; G8980-GP; J1644; J1815; J1818

== ENCOUNTER 2018-09-04 10:27 | Inpatient (IN) | payer MEDICARE, MEDICAID ==
[2018-09-04 10:56] LABS: Hematocrit 25.4 % (30.3-42.9); Hemoglobin 8.3 gm/dl (10.1-14.3); Mean Corpuscular HGB Conc 33 % (30-34); Mean Corpuscular Volume 80 fl (79-97); Platelet Count 171 K/mm3 (140-440); Red Blood Count 3.18 M/mm3 (3.65-5.03); Red Cell Distribution Width 13.6 % (13.2-15.2)
--- NOTE | 2018-09-04 11:10 | Emergency Department Report ---
HPI - General Chief Complaint: Hypoglycemia Time Seen by Provider: 09/04/18 10:31 - HPI HPI: 88-year-old demented female presents to the emergency department via EMS from her residential with complaint of hypoglycemia. The patient apparently was less arousable earlier in the day and was found to have a blood sugar of about 25. She was given some food with some improvement in her mental status and she had a blood sugar of about 60 upon EMSs arrival. The patient has a history of CVA, dementia, chronic kidney disease, hypertension. The patient herself has no complaints and is unsure of the reason of her transfer to the emergency department. Patient is a poor historian, currently AAo x 2. The patient was here about one week ago with complaints of some nausea, vomiting, abdominal pain, high blood sugar and high blood pressure. She was discharged from the emergency Department back to her facility at that time after having a negative CT scan of the abdomen and pelvis and some basic blood work that did not show any acute process. ED Past Medical Hx - Past Medical History Hx Hypertension: Yes Hx Diabetes: Yes Hx Dementia: Yes - Surgical History Past Surgical History?: No - Social History Smoking Status: Former Smoker Substance Use Type: Alcohol - Medications Home Medications: Home Medications Medication Instructions Recorded Confirmed Last Taken Type Donepezil HCl [Donepezil HCl Odt] 10 mg PO QHS 07/13/16 09/04/18 Unknown History Folic Acid [Folvite] 1 mg PO DAILY 07/13/16 09/04/18 Unknown History Losartan [Cozaar] 100 mg PO DAILY 07/13/16 09/04/18 Unknown History hydroCHLOROthiazide [HCTZ] 25 mg PO DAILY 07/13/16 09/04/18 Unknown History risperiDONE [RisperiDONE] 1 mg PO QHS 07/13/16 09/04/18 Unknown History Clopidogrel [Plavix] 75 mg PO DAILY 08/11/17 09/04/18 Unknown History Mirabegron [Myrbetriq] 25 mg PO DAILY 08/11/17 09/04/18 Unknown History Sitagliptin Phosphate [Januvia] 100 mg PO DAILY 08/11/17 09/04/18 Unknown History Glimepiride [Amaryl] 1 mg PO QAM 09/04/18 09/04/18 Unknown History Insulin Glargine,Hum.rec.anlog 15 unit SQ QHS 09/04/18 09/04/18 Unknown History [Liamagldominique Stafford U-100] Insulin Glargine,Hum.rec.anlog 15 units SQ QHS 09/04/18 09/04/18 Unknown History [Lantus] Lovastatin [Altoprev] 10 mg PO DAILY 09/04/18 09/04/18 Unknown History NIFEdipine [Nifedipine ER] 90 mg PO DAILY 09/04/18 09/04/18 Unknown History ED Review of Systems ROS: Stated complaint: ALTERED MENTAL STATUS Other details as noted in HPI Comment: Unobtainable due to pts medical conditions Physical Exam - Physical Exam Vital Signs: Vital Signs 09/04/18 09/04/18 09/04/18 10:40 10:45 10:51 Temperature 97.6 F Pulse Rate 83 81 Respiratory 18 23 Rate Blood Pressure 101/46 O2 Sat by Pulse 97 Oximetry Physical Exam: GENERAL: The patient is well-developed well-nourished. HEENT: Normocephalic. Atraumatic. Patient has moist mucous membranes. EYES: Extraocular motions are intact. Pupils are equal and reactive to light bilaterally. NECK: Supple. Trachea is midline. CHEST/LUNGS: Clear to auscultation. There is no respiratory distress noted. HEART/CARDIOVASCULAR: Regular. There is no tachycardia. There is no obvious murmur. ABDOMEN: Abdomen is soft. Mild upper abdominal tenderness to palpation. No gua rding. Patient has normal bowel sounds. There is no abdominal distention. SKIN: Skin is warm and dry. NEURO: The patient is awake but confused. Follows some commands. Withdraws from painful stimuli. MUSCULOSKELETAL: There is no tenderness or deformity. There is no limitation range of motion. There is no evidence of acute injury. ED Course Vital Signs 09/04/18 09/04/18 09/04/18 10:40 10:45 10:51 Temperature 97.6 F Pulse Rate 83 81 Respiratory 18 23 Rate Blood Pressure 101/46 O2 Sat by Pulse 97 Oximetry ED Medical Decision Making - Lab Data Result diagrams: 09/04/18 10:47 09/04/18 10:47 - Radiology Data Radiology results: report reviewed, image reviewed interpreted by me: Chest x-ray does not show any pneumothorax, pleural effusion, pneumonia or obvious focal consolidation. Abdominal x-ray shows nonspecific nonobstructive bowel gas CT abdomen and pelvis without contrast. Nonspecific abdominal pain. Patient is poor historian. Transverse images were obtained low chest and ischium with coronal and sagittal 2-D reformatted images. Comparison is made to exams dating back to August 11, 2017. There is a lobulated 2.5 cm mass in the inferior right breast which is increased from 1.7 cm in July. The visualized lungs are generally clear. Carotid vascular calcifications are noted with probable chamber enlargement. There is a moderate hiatus hernia. There is a small fluid around the superior right hepatic lobe. This is not identified previously. In the body/tail of the pancreas is a 7.7 cm mass with a partially calcified wall and low attenuation consistent with fluid. This has enlarged from the prior exam measuring approximately 5.8 cm. The gallbladder is patulous and slightly more distended than previously noted. The biliary duct measures between 9 and 11 mm in diameter. No apparent enlargement of the pancreatic head. There may be adenopathy in the sheng hepatis. The duct is better identified on the most recent prior study of August 27 where it appears essentially the same as does the pancreatic mass. This edematous stranding just posterior to the mass and anterior to the left kidney. This is unchanged. The unopacified bowel and mesentery appear grossly normal. There is a heavily calcified and probably enlarged uterus. There is collapse of the L2-3 interspace with gas as well as collapse of the L5-S1 interspace. No destructive lesion noted. Impressions: 1. Enlarging right breast mass. Suspicious for cancer. 2. Enlarging cystic mass in the mid body/tail of the pancreas. 3. Patulous gallbladder and enlarged CBD. No obstruction identified although there is suspicion of sheng hepatis adenopathy. 4. Interval development of a small volume of perihepatic fluid. 5. Stable hiatus hernia. Transcribed By: JAYLA Dictated By: MYLES GLEASON MD Electronically Authenticated By: MYLES GLEASON MD Signed Date/Time: 09/04/18 1536 - Medical Decision Making Patient was sent in for evaluation of some recent hypoglycemia. Her blood sugar has been stable throughout her ED course. However and evaluation of hypoglycemia, the patient was found to have significant worsening of her renal insufficiency that occurred within the past week. I believe some of it may be secondary to dehydration. The patient didn't complain of anything at first but throughout the ED course she was mentioned some abdominal discomfort. She was seen here for the same about one week ago. A CT scan of the abdomen and pelvis was done without any contrast came back showing an enlargement of breast mass, enlargement of a pancreatic cyst and some perihepatic fluid. The patient's primary care physician, Dr. Villalobos, except the patient for admission and allowed me to place bridging orders. - Differential Diagnosis gastritis, diverticulitis, malignancy, UTI Critical Care Time: No Critical care attestation.: If time is entered above; I have spent that time in minutes in the direct care of this critically ill patient, excluding procedure time. ED Disposition Clinical Impression: Pancreatic cyst, Breast mass ARF (acute renal failure) Qualifiers: Acute renal failure type: unspecified Qualified Code(s): N17.9 - Acute kidney failure, unspecified Leukocytosis Qualifiers: Leukocytosis type: unspecified Qualified Code(s): D72.829 - Elevated white blood cell count, unspecified Abdominal pain Qualifiers: Abdominal location: generalized Qualified Code(s): R10.84 - Generalized abdominal pain Disposition: OP ADMIT IP TO THIS HOSP Is pt being admited?: Yes Condition: Fair Time of Disposition: 16:12
[2018-09-04 11:16] LABS: Calcium 8.5 mg/dL (8.4-10.2)
[2018-09-04 11:17] LABS: Albumin 2.4 g/dL (3.9-5)
--- NOTE | 2018-09-04 11:51 | XRay Report ---
Abdominal series: Abdominal pain. AP view of the chest is unremarkable. Supine and upright views of the abdomen show no evidence of bowel dilatation, air-fluid layering, nor free air. No abdominal mass appreciated. Significant degenerative bone and disc changes are present at the L2-3 level and to a lesser extent from L3-S1. Heavy calcification is noted in the uterus which appears to lie mostly in the right pelvis. Impression: No acute pathology identified.
[2018-09-04] MEDS ORDERED: NACL 0.9% 1000 ML 1,000 ML IV ONE (11:55)
[2018-09-04 12:01] LABS: Band Neutrophils # (Manual) 0.3 K/mm3; Basophils % (Manual) 0 % (0.0-1.8); Eosinophils % (Manual) 0 % (0.0-4.3); Total Cells Counted 100
[2018-09-04 12:02] LABS: Anisocytosis 1+; Hypochromasia 1+; Ovalocytes Few; Platelet Estimate Consistent w Auto
[2018-09-04 13:30] LABS: Bacteria,Urine 1+ /HPF (Negative); Bilirubin,Urine NEG (Negative); Blood,Urine SM (Negative); Color,Urine Yellow (Yellow); Protein,Urine <15 mg/dL mg/dL (Negative)
--- NOTE | 2018-09-04 15:50 | Cat Scan Report ---
CT abdomen and pelvis without contrast. Nonspecific abdominal pain. Patient is poor historian. Transverse images were obtained low chest and ischium with coronal and sagittal 2-D reformatted images. Comparison is made to exams dating back to August 11, 2017. There is a lobulated 2.5 cm mass in the inferior right breast which is increased from 1.7 cm in July. The visualized lungs are generally clear. Carotid vascular calcifications are noted with probable chamber enlargement. There is a moderate hiatus hernia. There is a small fluid around the superior right hepatic lobe. This is not identified previously. In the body/tail of the pancreas is a 7.7 cm mass with a partially calcified wall and low attenuation consistent with fluid. This has enlarged from the prior exam measuring approximately 5.8 cm. The gallbladder is patulous and slightly more distended than previously noted. The biliary duct measures between 9 and 11 mm in diameter. No apparent enlargement of the pancreatic head. There may be adenopathy in the sheng hepatis. The duct is better identified on the most recent prior study of August 27 where it appears essentially the same as does the pancreatic mass. This edematous stranding just posterior to the mass and anterior to the left kidney. This is unchanged. The unopacified bowel and mesentery appear grossly normal. There is a heavily calcified and probably enlarged uterus. There is collapse of the L2-3 interspace with gas as well as collapse of the L5-S1 interspace. No destructive lesion noted. Impressions: 1. Enlarging right breast mass. Suspicious for cancer. 2. Enlarging cystic mass in the mid body/tail of the pancreas. 3. Patulous gallbladder and enlarged CBD. No obstruction identified although there is suspicion of sheng hepatis adenopathy. 4. Interval development of a small volume of perihepatic fluid. 5. Stable hiatus hernia.
[2018-09-04] MEDS ORDERED: TYLENOL PO ONE (16:12)
[2018-09-04] MEDS ORDERED: TYLENOL ONE (16:21)
--- NOTE | 2018-09-04 20:06 | History and Physical Report ---
History of Present Illness Date of examination: 09/04/18 Date of admission: 09/04/18 12:47 Chief complaint: Hypoglycemia - 1 day duration History of present illness: Patient is an 88-year-old lady who is well-known to me who currently resides in the past not to history of diabetes mellitus, right breast mass, pancreatic mass, dementia, hypertension, CVA, chronic kidney disease was found to be less arousable at the past not Home with a blood sugar reading of 25. She was given something to eat. EMS was called. Blood sugar improved to 60. Patient was transported to the emergency department. BUN was found to be 64 and creatinine was 2.3. As of July 2017 creatinine was 1.9. WBC was found to be 17.4. Patient was still confused. This was a portable requested. Patient is a poor historian and therefore unable to obtain any reliable history. She is unsure why she was in the hospital. Admission was requested. Past History Past Medical History: diabetes, hypertension, other (dementia, right breast mass, pancreatic mass, CVA, bipolar disorder, diastolic heart failure) Medications and Allergies Allergies Allergy/AdvReac Type Severity Reaction Status Date / Time No Known Allergies Allergy Unverified 07/13/16 09:05 Home Medications Medication Instructions Recorded Confirmed Last Taken Type Donepezil HCl [Donepezil HCl Odt] 10 mg PO QHS 07/13/16 09/04/18 Unknown History Folic Acid [Folvite] 1 mg PO DAILY 07/13/16 09/04/18 Unknown History Losartan [Cozaar] 100 mg PO DAILY 07/13/16 09/04/18 Unknown History hydroCHLOROthiazide [HCTZ] 25 mg PO DAILY 07/13/16 09/04/18 Unknown History risperiDONE [RisperiDONE] 1 mg PO QHS 07/13/16 09/04/18 Unknown History Clopidogrel [Plavix] 75 mg PO DAILY 08/11/17 09/04/18 Unknown History Mirabegron [Myrbetriq] 25 mg PO DAILY 08/11/17 09/04/18 Unknown History Sitagliptin Phosphate [Januvia] 100 mg PO DAILY 08/11/17 09/04/18 Unknown History Glimepiride [Amaryl] 1 mg PO QAM 09/04/18 09/04/18 Unknown History Insulin Glargine,Hum.rec.anlog 15 unit SQ QHS 09/04/18 09/04/18 Unknown History [Basaglar Kwikpen U-100] Insulin Glargine,Hum.rec.anlog 15 units SQ QHS 09/04/18 09/04/18 Unknown History [Lantus] Lovastatin [Altoprev] 10 mg PO DAILY 09/04/18 09/04/18 Unknown History NIFEdipine [Nifedipine ER] 90 mg PO DAILY 09/04/18 09/04/18 Unknown History Active Meds: Active Medications Pneumococcal Polyvalent Vaccine (Pneumovax 23) 0.5 ml IM .ONCE ONE Stop: 09/05/18 12:01 Review of systems Constitutional: Well Nouridhed and Well developed. Head: NC/ AT Eyes: Denies any visual impairments. No discharge from the eyes Nose: Denies any rhinorrhea or epistaxis Throats: Denies any post nasal drainage. Ears: Denies any hearing deficits Cardiovascular system: Denies any chest pain, shortness of breath, orthopnea, p aroxysmal nocturnal dyspnea, or palpitation. Respiratory system: Denies any cough, difficulty breathing, wheezing, pleuritic chest pain, Gastrointestinal system: Denies any abdominal pain, nausea vomiting, hematemesis or melena. Neurological system: Confused, slurred speech, no facial droop, lateralizing weakness Genitalia system: Denies any dysuria, urinary frequency or urgency, urethral discharge Skin: No rashes, hyperpigmented spots. Hematological: Denies any cervical tenderness hemorrhages or petechia. Immunological: Denies any multiple septic spots, Lymphatic: Denies any generalized lymphadenopathy. Endocrine: Denies any polyuria, polydipsia, polyphagia. No heat or cold intolerance. Musculoskeletal system: No joint pain or swelling. Psych: No visual, tactile, auditory or hallucination Exam - Physical Exam Narrative exam: Constitutional: Confused Well-nourished well-developed. In no distress Head: Normocephalic atraumatic Eyes: Pupils are equal round and reactive to light Nose: No enlarged turbinates, no septal deviation. Mouth: Moist mucous membranes. Neck: Supple no thyromegaly. No bruit. No JVD Heart: Regular rate and rhythm, S1-S2 normal. No rubs murmurs or gallop Lungs: Clear to auscultation bilaterally. no rales or rhonchi Abdomen: Soft, nontender. Bowel sound are present. Extremities: No edema, no cyanosis, no clubbing. Neuro: Alert oriented Oriented x2. No focal sensory or motor deficit. Skin: No rashes or hyperpigmented spots Musculoskeletal system: No joint pain or swelling Hematological: No petechia or subcutanous hemorrhages. Immunological: No multiple septic spots on the skin Lymphatic: No generalized lymphadenopathy Psychiatry: Euthymic. Calm. - Constitutional Vitals: Temp Pulse Resp BP Pulse Ox 97.6 F 93 H 18 117/42 97 09/04/18 10:51 09/04/18 16:16 09/04/18 17:37 09/04/18 16:16 09/04/18 16:16 Results - Labs CBC & Chem 7: 09/07/18 03:11 09/07/18 03:11 Labs: Abnormal lab results 09/04/18 09/04/18 09/04/18 Range/Units 10:44 10:47 10:47 WBC 17.4 H (4.5-11.0) K/mm3 RBC 3.18 L (3.65-5.03) M/mm3 Hgb 8.3 L (10.1-14.3) gm/dl Hct 25.4 L (30.3-42.9) % MCH 26 L (28-32) pg Seg Neuts % (Manual) 86.0 H (40.0-70.0) % Lymphocytes % (Manual) 5.0 L (13.4-35.0) % Seg Neutrophils # Man 15.0 H (1.8-7.7) K/mm3 Lymphocytes # (Manual) 0.9 L (1.2-5.4) K/mm3 Monocytes # (Manual) 1.2 H (0.0-0.8) K/mm3 Sodium 136 L (137-145) mmol/L BUN 64 H (7-17) mg/dL Creatinine 3.3 H (0.7-1.2) mg/dL Glucose 150 H (65-100) mg/dL POC Glucose 156 H (70-105) Albumin 2.4 L (3.9-5) g/dL Assessment and Plan - Acute on chronic renal failure Most likely from pre-renal azotemia Creatinine was 1/9 in 07/2017 and 3.3 09/04/18 IV hydration, renal US with NS at 75/min - Possible SIRS with Leukocytosis and tachypnea UA was unremarkable CXR was normal Obtain blood CX and urine Cx imperical antibiotic with Rocephin - Hypoglycemia imporving from 25-110 Monitor closely Hold oral hypoglycemic agent - T2DM SSI Consistent Carbohydrate diet - h/o Right breast mass - h/o Pancreatic mass Per CT abdomen and pelvis - DVT and GI PPx with lovenox and pepcid Called and discussed with pt's Niece, Ms Inez Michele, who said pt had a biopsy of breast mass at [place] about 3 yrs ago. Was not told she had cancer. Was told to continue to f/u with them at [place] but she has not been able to f/u. Ms Wiley will discuss with family member to determine if aggressive approach to her masses in the breast and pancreas should be pursed - Disposition: Improve renal function stable blood sugar and d/c back to [facility]
[2018-09-04] MEDS ORDERED: NON-FORMULARY (Mirabegron [Myrbetriq] 25 MG) PO SCH (20:45)
[2018-09-04] MEDS ORDERED: NORCO 5/325 PO PRN (20:49)
[2018-09-04] MEDS ORDERED: ROCEPHIN/NS 1 GM/50 ML 1 GM/50 ML BAG IV SCH (22:00)
[2018-09-04] MEDS: FOLVITE PO SCH (22:10)
[2018-09-04] MEDS: ARICEPT PO SCH (22:10)
[2018-09-04] MEDS: LOVENOX SUB-Q SCH (22:11)
[2018-09-04] MEDS: RisperDAL PO SCH (22:12)
[2018-09-04] MEDS: NACL 0.9% 1000 ML 1,000 ML IV SCH (22:16)
[2018-09-04] MEDS: PRAVACHOL PO SCH (22:56)
[2018-09-05 06:20] LABS: Hematocrit 27.7 % (30.3-42.9); Hemoglobin 9.1 gm/dl (10.1-14.3); Mean Corpuscular HGB Conc 33 % (30-34); Mean Corpuscular Volume 79 fl (79-97); Platelet Count 160 K/mm3 (140-440); Red Blood Count 3.49 M/mm3 (3.65-5.03); Red Cell Distribution Width 13.9 % (13.2-15.2)
[2018-09-05 06:33] LABS: INR 1.46 (0.87-1.13)
[2018-09-05 06:43] LABS: Albumin 3.5 g/dL (3.9-5); Calcium 9.9 mg/dL (8.4-10.2)
[2018-09-05 07:51] LABS: Anisocytosis 1+; Band Neutrophils # (Manual) 5.4 K/mm3; Basophils % (Manual) 0 % (0.0-1.8); Eosinophils % (Manual) 0 % (0.0-4.3); Myelocytes # (Manual) 0.2 K/mm3; Total Cells Counted 100
[2018-09-05 07:52] LABS: Dohle Bodies Few; Hypochromasia Few
[2018-09-05] MEDS ORDERED: COZAAR PO SCH (10:00)
[2018-09-05] MEDS ORDERED: D50W (25GM) Syringe IV PRN (10:01)
[2018-09-05] MEDS: PLAVIX PO SCH (10:11)
--- NOTE | 2018-09-05 10:14 | Progress Note ---
Assessment and Plan - Patient Problems (1) Hypoglycemia secondary to sulfonylurea Current Visit: Yes Status: Acute Plan to address problem: Patient was on glimepiride Amaryl which is now on hold and blood sugar was noted to be improving gradually with continue to monitor blood sugar before meals and at bedtime and correct any ongoing hypoglycemia with IV D50 glucose. Hypoglycemia possibly worsened by ongoing acute on chronic renal failure with DC any oral diabetes medication at this time and patient isn't on sliding scale insulin only for now (2) ARF (acute renal failure) Current Visit: Yes Status: Acute Qualifiers: Acute renal failure type: unspecified Qualified Code(s): N17.9 - Acute kidney failure, unspecified Plan to address problem: BUN and creatinine noted to have worsened over the last 6 months and still elevated at this time we'll obtain renal consult for further evaluation follow- up with renal ultrasound previously ordered (3) Abdominal pain Current Visit: Yes Status: Acute Qualifiers: Abdominal location: generalized Qualified Code(s): R10.84 - Generalized abdominal pain Plan to address problem: Abdominal pain ongoing noted is pancreatic cyst/mass in the pancreatic tail. We'll check amylase and lipase level for possible chronic pancreatitis (4) Leukocytosis Current Visit: Yes Status: Acute Qualifiers: Leukocytosis type: unspecified Qualified Code(s): D72.829 - Elevated white blood cell count, unspecified Plan to address problem: Etiology of leukocytosis is uncertain patient is afebrile and no definite focus of infection chest x-ray reviewed was negative and UA was negative for UTI will hold antibiotics for now and restart if any definite focus is identified. (5) Pancreatic cyst Current Visit: Yes Status: Acute Plan to address problem: Warner this cyst will need further evaluation and possible chronic pancreatitis. We'll check amylase and lipase level and possible GI consult for further evaluation (6) Breast mass Current Visit: Yes Status: Acute Plan to address problem: Breast mass possibly cancerous noted to have increased from previous evaluation. Patient's family already notified and further direction to be decided by family and patient. Subjective Date of service: 09/05/18 Principal diagnosis: hypoglycemia, breast mass, pancreatic cyst Interval history: Covering for Dr. Dr. Villalobos Patient seen and examined chart reviewed 88-year-old female admitted on account of change in mental status and his initial evaluations showed patient was hypoglycemic with blood sugar of 25 in the emergency room which has now gradually improved, and blood sugar now reported this morning to be 175 patient has not had any food this morning. Patient complaining of abdominal discomforts in the upper abdomen denied any diarrhea or nausea and no vomiting no shortness of breath and no fever reported by nursing staff. Objective - Exam Narrative Exam: GENERAL: Elderly female resting comfortably in bed not in acute distress HEENT: Normocephalic, not pale not jaundiced no cyanosis. Mucous membrane is moist, no oral lesions NECK: Supple, no JVD, no thyroid enlargement, no lymphadenopathy CHEST/LUNGS: Good air exchange bilaterally, no wheeze, no rales and no rhonchi. No chest wall tenderness, percussion is normal, symmetrical chest wall. HEART/CARDIOVASCULAR: Regular rate and rhythm, S1 and S2 only, no murmur. ABDOMEN: Abdomen is soft nondistended, tenderness in the epigastrium and the pe riumbilical region, no guarding no rebound tenderness no palpable mass no audible bruit on auscultation of the abdomen SKIN: Warm and dry, no rash. NEURO: Awake, alert, oriented x3, speech normal. Power 5/5 in all the extremities. EXTREMITIES: No pedal edema, good peripheral pulses, no finger or toe clubbing. - Constitutional Vitals: Vital Signs - 12hr 09/04/18 09/05/18 09/05/18 23:56 02:33 02:36 Temperature 97.5 F L Pulse Rate 69 Respiratory 18 18 Rate Blood Pressure 82/40 Blood Pressure [Right] O2 Sat by Pulse 97 Oximetry 09/05/18 09/05/18 09/05/18 04:00 08:00 09:09 Temperature 97.6 F Pulse Rate 72 77 77 Respiratory 18 18 Rate Blood Pressure 98/39 Blood Pressure 104/40 98/39 [Right] O2 Sat by Pulse 96 100 Oximetry - Labs CBC & Chem 7: 09/05/18 05:43 09/05/18 05:43 Labs: Abnormal lab results 09/04/18 09/04/18 09/04/18 Range/Units 10:44 10:47 10:47 WBC 17.4 H (4.5-11.0) K/mm3 RBC 3.18 L (3.65-5.03) M/mm3 Hgb 8.3 L (10.1-14.3) gm/dl Hct 25.4 L (30.3-42.9) % MCH 26 L (28-32) pg Seg Neuts % (Manual) 86.0 H (40.0-70.0) % Lymphocytes % (Manual) 5.0 L (13.4-35.0) % Seg Neutrophils # Man 15.0 H (1.8-7.7) K/mm3 Lymphocytes # (Manual) 0.9 L (1.2-5.4) K/mm3 Monocytes # (Manual) 1.2 H (0.0-0.8) K/mm3 PT (12.2-14.9) Sec. INR (0.87-1.13) Sodium 136 L (137-145) mmol/L Potassium (3.6-5.0) mmol/L Carbon Dioxide (22-30) mmol/L BUN 64 H (7-17) mg/dL Creatinine 3.3 H (0.7-1.2) mg/dL Glucose 150 H (65-100) mg/dL POC Glucose 156 H (70-105) Phosphorus (2.5-4.5) mg/dL Albumin 2.4 L (3.9-5) g/dL 09/04/18 09/05/18 09/05/18 Range/Units 21:32 05:43 05:43 WBC 17.3 H (4.5-11.0) K/mm3 RBC 3.49 L (3.65-5.03) M/mm3 Hgb 9.1 L (10.1-14.3) gm/dl Hct 27.7 L (30.3-42.9) % MCH 26 L (28-32) pg Seg Neuts % (Manual) (40.0-70.0) % Lymphocytes % (Manual) 4.0 L (13.4-35.0) % Seg Neutrophils # Man 9.9 H (1.8-7.7) K/mm3 Lymphocytes # (Manual) 0.7 L (1.2-5.4) K/mm3 Monocytes # (Manual) 0.9 H (0.0-0.8) K/mm3 PT 18.2 H (12.2-14.9) Sec. INR 1.46 H (0.87-1.13) Sodium (137-145) mmol/L Potassium (3.6-5.0) mmol/L Carbon Dioxide (22-30) mmol/L BUN (7-17) mg/dL Creatinine (0.7-1.2) mg/dL Glucose (65-100) mg/dL POC Glucose 166 H (70-105) Phosphorus (2.5-4.5) mg/dL Albumin (3.9-5) g/dL 09/05/18 09/05/18 Range/Units 05:43 07:55 WBC (4.5-11.0) K/mm3 RBC (3.65-5.03) M/mm3 Hgb (10.1-14.3) gm/dl Hct (30.3-42.9) % MCH (28-32) pg Seg Neuts % (Manual) (40.0-70.0) % Lymphocytes % (Manual) (13.4-35.0) % Seg Neutrophils # Man (1.8-7.7) K/mm3 Lymphocytes # (Manual) (1.2-5.4) K/mm3 Monocytes # (Manual) (0.0-0.8) K/mm3 PT (12.2-14.9) Sec. INR (0.87-1.13) Sodium (137-145) mmol/L Potassium 5.2 H D (3.6-5.0) mmol/L Carbon Dioxide 20 L (22-30) mmol/L BUN 56 H (7-17) mg/dL Creatinine 3.2 H (0.7-1.2) mg/dL Glucose 159 H (65-100) mg/dL POC Glucose 170 H (70-105) Phosphorus 5.80 H (2.5-4.5) mg/dL Albumin 3.5 L (3.9-5) g/dL
[2018-09-05] MEDS ORDERED: NON-FORMULARY (Nifedipine [Nifedipine Er] 90 MG) PO SCH (10:15)
[2018-09-05] MEDS: FOLVITE PO SCH (10:16)
--- NOTE | 2018-09-05 11:04 | Consultation ---
History of Present Illness - History of Present Illness Thank you for the consultation ! Patient was evaluated today My assessment and plan are as follows; Acute kidney injury mostly resulting from medication, dehydration patient does require volume discontinuation of hydrochlorothiazide as well as losartan No indication for renal replacement therapy at this time Patiently monitor renal function Continue with IV hydration I'll obtain ultrasonogram as well as basic labs We will continue to follow and make recommendations from renal standpoint. Thank you for the consultation Author: Kenton Nunes M.D. [facility] (Formerly [facility]) Nephrology, [address] [place] [address] Tel; [phone] Source of information: From patient History of present illness Patient is a 88-year-old -Luxembourger female who has known history of dementia and was sent to the hospital with hypoglycemia. Blood sugar was around 25 and then was subsequently treated with improvement. Patient does have history of chronic kidney disease as well as hypertension and prior CVA and during this admission upon arrival her creatinine was noted to be. In outpatient setting patient was also taking losartan as well as hydrochlorothiazide in addition to several other medications She has been appropriately started on IV fluid and these medications have been discontinued. There is no immediate family member available at the bedside She has multiple risk factors for chronic kidney disease and progression over time Past medical history: chronic kidney disease Hypertension Dementia CVA Diabetes Current allergies: Reviewed from the current chart Social history: Reviewed from the current chart Family history: Reviewed from the current chart Review of system:very limited due to dementia patient is a poor historian has had hypoglycemic spell Physical examination Vitals: Reviewed General: No acute distress, resting comfortably HEENT: Oral mucosa moist no pallor or icterus Neck: Supple without any JVD thyromegaly or nodular mass Chest: Clear to auscultation Heart: Regular rate and rhythm S1-S2 heard no S3-S4 Abdomen: Soft nontender, bowel sounds present no renal bruit no suprapubic masses no CVA tenderness noted Extremity: Minimal edema dry skin no peripheral cyanosis Endocrine: Thyroid not enlarged Psychiatric: No agitation and aggression noted, patient has dementia Musculoskeletal: No joint effusion noted Labs and x-rays: Reviewed from this admission Past History Past Medical History: diabetes, hypertension, other (dementia, right breast mass, pancreatic mass, CVA, bipolar disorder, diastolic heart failure) Medications and Allergies Allergies Allergy/AdvReac Type Severity Reaction Status Date / Time No Known Allergies Allergy Unverified 07/13/16 09:05 Home Medications Medication Instructions Recorded Confirmed Last Taken Type Donepezil HCl [Donepezil HCl Odt] 10 mg PO QHS 07/13/16 09/04/18 Unknown History Folic Acid [Folvite] 1 mg PO DAILY 07/13/16 09/04/18 Unknown History Losartan [Cozaar] 100 mg PO DAILY 07/13/16 09/04/18 Unknown History hydroCHLOROthiazide [HCTZ] 25 mg PO DAILY 07/13/16 09/04/18 Unknown History risperiDONE [RisperiDONE] 1 mg PO QHS 07/13/16 09/04/18 Unknown History Clopidogrel [Plavix] 75 mg PO DAILY 08/11/17 09/04/18 Unknown History Mirabegron [Myrbetriq] 25 mg PO DAILY 08/11/17 09/04/18 Unknown History Sitagliptin Phosphate [Januvia] 100 mg PO DAILY 08/11/17 09/04/18 Unknown History Glimepiride [Amaryl] 1 mg PO QA 09/04/18 09/04/18 Unknown History Insulin Glargine,Hum.rec.anlog 15 unit SQ QHS 09/04/18 09/04/18 Unknown History [Basaglar Kwikpen U-100] Insulin Glargine,Hum.rec.anlog 15 units SQ QHS 09/04/18 09/04/18 Unknown History [Lantus] Lovastatin [Altoprev] 10 mg PO DAILY 09/04/18 09/04/18 Unknown History NIFEdipine [Nifedipine ER] 90 mg PO DAILY 09/04/18 09/04/18 Unknown History Active Meds: Active Medications Acetaminophen/Hydrocodone Bitart ([place] 5/325) 1 each PO Q8H PRN PRN Reason: Pain, Moderate (4-6) Last Admin: 09/04/18 22:56 Dose: 1 each Documented by: Clopidogrel Bisulfate (Plavix) 75 mg PO DAILY [facility] Last Admin: 09/05/18 10:11 Dose: 75 mg Documented by: Dextrose (D50w (25gm) Syringe) 50 ml IV PRN PRN PRN Reason: Hypoglycemia Donepezil HCl (Aricept) 10 mg PO QHS [facility] Last Admin: 09/04/18 22:10 Dose: 10 mg Documented by: Enoxaparin Sodium (Lovenox) 30 mg SUB-Q QDAY@2200 [facility] Last Admin: 09/04/18 22:11 Dose: 30 mg Documented by: Folic Acid (Folvite) 1 mg PO DAILY [facility] Last Admin: 09/05/18 10:16 Dose: 1 mg Documented by: Sodium Chloride (Nacl 0.9% 1000 Ml) 1,000 mls @ 75 mls/hr IV DIRECT [facility] Stop: 09/06/18 10:19 Last Admin: 09/04/18 22:16 Dose: 75 mls/hr Documented by: Miscellaneous Medication (Mirabegron [Myrbetriq]) 25 mg PO DAILY [facility] Pneumococcal Polyvalent Vaccine (Pneumovax 23) 0.5 ml IM .ONCE ONE Stop: 09/05/18 12:01 Pravastatin Sodium (Pravachol) 10 mg PO QHS [facility] Last Admin: 09/04/18 22:56 Dose: 10 mg Documented by: Risperidone (Risperdal) 1 mg PO QHS [facility] Last Admin: 09/04/18 22:12 Dose: 1 mg Documented by: Exam - Vital Signs Vital signs: Vital Signs Pulse Resp Pulse Ox 83 18 97 09/04/18 10:40 09/04/18 10:40 09/04/18 10:40 Results - Lab Results 09/06/18 02:35 09/06/18 02:35 Most recent lab results Calcium 9.9 mg/dL (8.4-10.2) D 09/05/18 05:43 Phosphorus 5.80 mg/dL (2.5-4.5) H 09/05/18 05:43 Magnesium 2.20 mg/dL (1.7-2.3) 09/05/18 05:43
[2018-09-05] MEDS ORDERED: PNEUMOVAX 23 IM ONE (12:00)
[2018-09-05] MEDS: NACL 0.9% 1000 ML 1,000 ML IV SCH (13:42)
--- NOTE | 2018-09-05 20:05 | Ultrasound Report ---
FINAL REPORT EXAM: US RENAL BILAT HISTORY: [place] TECHNIQUE: Real-time sonography was performed of the kidneys and images are submitted for interpreta tion. PRIORS: CT scan from 08/27/2018 FINDINGS: The kidneys appear slightly echogenic. The right kidney measures 10.6 x 4.2 x 4.3 cm and the left kid margaret measures 10.0 x 5.4 x 4.8 cm. There is no hydronephrosis. There are no focal renal lesions. The b ladder appears normal. IMPRESSION: The kidneys appear slightly echogenic suggesting medical renal disease.
[2018-09-05] MEDS: PRAVACHOL PO SCH (21:53)
[2018-09-05] MEDS: RisperDAL PO SCH (21:53)
[2018-09-05] MEDS: HumaLOG SUB-Q SCH (21:54)
[2018-09-05] MEDS: ARICEPT PO SCH (21:54)
[2018-09-05] MEDS: LOVENOX SUB-Q SCH (21:54)
[2018-09-06 03:13] LABS: Albumin 1.7 g/dL (3.9-5); Hematocrit 27.1 % (30.3-42.9); Hemoglobin 8.4 gm/dl (10.1-14.3); Mean Corpuscular HGB Conc 31 % (30-34); Mean Corpuscular Volume 83 fl (79-97); Platelet Count 163 K/mm3 (140-440); Red Blood Count 3.28 M/mm3 (3.65-5.03); Red Cell Distribution Width 14.1 % (13.2-15.2)
[2018-09-06 04:19] LABS: Anisocytosis 1+; Band Neutrophils # (Manual) 11.2 K/mm3; Basophils % (Manual) 0 % (0.0-1.8); Eosinophils % (Manual) 0 % (0.0-4.3); Monocytes % (Manual) 0 % (0.0-7.3); Platelet Estimate Consistent w Auto; Total Cells Counted 100
[2018-09-06] MEDS: NACL 0.9% 1000 ML 1,000 ML IV SCH ×2 (05:48→15:16)
[2018-09-06] MEDS: FOLVITE PO SCH (09:44)
[2018-09-06] MEDS: PLAVIX PO SCH (09:44)
[2018-09-06] MEDS: HumaLOG SUB-Q SCH ×4 (09:46→22:24)
--- NOTE | 2018-09-06 10:09 | Progress Note ---
Assessment and Plan - Patient Problems (1) Hypoglycemia secondary to sulfonylurea Current Visit: Yes Status: Acute Plan to address problem: Blood glucose noted more stable blood sugar this morning was 175 requiring 2 units of regular insulin will continue to hold off all other diabetes medication and continue sliding scale regular insulin for now (2) ARF (acute renal failure) Current Visit: Yes Status: Acute Qualifiers: Acute renal failure type: unspecified Qualified Code(s): N17.9 - Acute kidney failure, unspecified Plan to address problem: BUN and creatinine noted continues to trend upwards. Renal consult noted with thanks recommendations as suggested. Will increase hydration with normal saline at 100 mL per hour and continue to monitor urinary output and BUN and creatinine. Follow-up on pending renal ultrasound as ordered per nephrology (3) Abdominal pain Current Visit: Yes Status: Acute Qualifiers: Abdominal location: generalized Qualified Code(s): R10.84 - Generalized abdominal pain Plan to address problem: Abdominal pain ongoing noted is pancreatic cyst/mass in the pancreatic tail. We'll check amylase and lipase level for possible chronic pancreatitis (4) Leukocytosis Current Visit: Yes Status: Acute Qualifiers: Leukocytosis type: unspecified Qualified Code(s): D72.829 - Elevated white blood cell count, unspecified Plan to address problem: Worsening leukocytosis with WBC of 24,000 this morning, patient reported with low-grade fever and also with diarrhea. Was started empirically on Flagyl for presumed antibiotics and associated colitis and sent stool for C. difficile toxin antibody continue to monitor for other focus of infection. (5) Pancreatic cyst Current Visit: Yes Status: Acute Plan to address problem: Warner this cyst will need further evaluation and possible chronic pancreatitis. We'll check amylase and lipase level and possible GI consult for further evaluation (6) Breast mass Current Visit: Yes Status: Acute Plan to address problem: Breast mass possibly cancerous noted to have increased from previous evaluation. Patient's family already notified and further direction to be decided by family and patient. (7) Diarrhea Current Visit: Yes Status: Acute Plan to address problem: Possible C. difficile colitis Will empirically start patient on Flagyl and continue to monitor panculture if fever develops. Subjective Date of service: 09/06/18 Principal diagnosis: hypoglycemia, breast mass, pancreatic cyst Interval history: Covering Dr. Dr. Villalobos Patient seen and examined, sitting propped up in bed being fed breakfast by staff who reported the patient is eating fairly well. Low-grade fever reported during the night TM 99. Patient also reported to have had a loose large bowel movement early this morning, still complaining of abdominal discomforts no shortness of breath reported, blood pressure noted still marginal and all blood pressure medication on hold. Objective - Exam Narrative Exam: GENERAL: Elderly female resting comfortably in bed not in acute distress HEENT: Normocephalic, not pale not jaundiced no cyanosis. Mucous membrane is moist, no oral lesions NECK: Supple, no JVD, no thyroid enlargement, no lymphadenopathy CHEST/LUNGS: Good air exchange bilaterally, no wheeze, no rales and no rhonchi. No chest wall tenderness, percussion is normal, symmetrical chest wall. HEART/CARDIOVASCULAR: Regular rate and rhythm, S1 and S2 only, no murmur. ABDOMEN: Abdomen is soft nondistended, tenderness in the epigastrium and the periumbilical region, no guarding no rebound tenderness no palpable mass no audible bruit on auscultation of the abdomen SKIN: Warm and dry, no rash. NEURO: Awake, alert, oriented x3, speech normal. Power 5/5 in all the extremities. EXTREMITIES: No pedal edema, good peripheral pulses, no finger or toe clubbing. - Constitutional Vitals: Vital Signs - 12hr 09/06/18 09/06/18 09/06/18 02:10 07:38 08:00 Temperature 99.0 F 97.8 F Pulse Rate 86 77 77 Pulse Rate [ From Monitor] Respiratory 18 18 Rate Blood Pressure 93/45 Blood Pressure 109/49 [Right] O2 Sat by Pulse 95 94 94 Oximetry 09/06/18 08:29 Temperature Pulse Rate Pulse Rate [ 77 From Monitor] Respiratory 18 Rate Blood Pressure Blood Pressure [Right] O2 Sat by Pulse 94 Oximetry - Labs CBC & Chem 7: 09/06/18 02:35 09/06/18 02:35 Labs: Abnormal lab results 09/05/18 09/05/18 09/05/18 Range/Units 11:14 15:57 16:18 WBC (4.5-11.0) K/mm3 RBC (3.65-5.03) M/mm3 Hgb (10.1-14.3) gm/dl Hct (30.3-42.9) % MCH (28-32) pg Lymphocytes % (Manual) (13.4-35.0) % Seg Neutrophils # Man (1.8-7.7) K/mm3 Lymphocytes # (Manual) (1.2-5.4) K/mm3 Sodium (137-145) mmol/L Carbon Dioxide (22-30) mmol/L BUN (7-17) mg/dL Creatinine (0.7-1.2) mg/dL Glucose (65-100) mg/dL POC Glucose 164 H 227 H (70-105) Uric Acid 9.7 H (3.5-7.6) mg/dL Calcium (8.4-10.2) mg/dL Total Protein (6.3-8.2) g/dL Albumin (3.9-5) g/dL 09/05/18 09/06/18 09/06/18 Range/Units 21:40 02:35 02:35 WBC 24.4 H (4.5-11.0) K/mm3 RBC 3.28 L (3.65-5.03) M/mm3 Hgb 8.4 L (10.1-14.3) gm/dl Hct 27.1 L (30.3-42.9) % MCH 26 L (28-32) pg Lymphocytes % (Manual) 2.0 L (13.4-35.0) % Seg Neutrophils # Man 12.7 H (1.8-7.7) K/mm3 Lymphocytes # (Manual) 0.5 L (1.2-5.4) K/mm3 Sodium 136 L (137-145) mmol/L Carbon Dioxide 16 L (22-30) mmol/L BUN 82 H (7-17) mg/dL Creatinine 4.2 H (0.7-1.2) mg/dL Glucose 159 H (65-100) mg/dL POC Glucose 266 H (70-105) Uric Acid (3.5-7.6) mg/dL Calcium 8.0 L D (8.4-10.2) mg/dL Total Protein 5.6 L D (6.3-8.2) g/dL Albumin 1.7 L (3.9-5) g/dL 09/06/18 Range/Units 07:41 WBC (4.5-11.0) K/mm3 RBC (3.65-5.03) M/mm3 Hgb (10.1-14.3) gm/dl Hct (30.3-42.9) % MCH (28-32) pg Lymphocytes % (Manual) (13.4-35.0) % Seg Neutrophils # Man (1.8-7.7) K/mm3 Lymphocytes # (Manual) (1.2-5.4) K/mm3 Sodium (137-145) mmol/L Carbon Dioxide (22-30) mmol/L BUN (7-17) mg/dL Creatinine (0.7-1.2) mg/dL Glucose (65-100) mg/dL POC Glucose 175 H (70-105) Uric Acid (3.5-7.6) mg/dL Calcium (8.4-10.2) mg/dL Total Protein (6.3-8.2) g/dL Albumin (3.9-5) g/dL
--- NOTE | 2018-09-06 10:34 | Progress Note ---
Subjective Principal diagnosis: hypoglycemia, breast mass, pancreatic cyst Interval history: Patient was seen today for follow-up on multiple renal related issues Events of this hospitalization noted Patient is on IV hydration Renal function worse today She is a very poor historian Patient denies having any chest pain pressure or shortness of breath Vitals labs intake output medications were reviewed Social history: Reviewed Allergies: Reviewed Family history: Reviewed Physical examination HEENT: Oral mucosa moist no pallor or icterus Neck: Supple no JVD Chest: Clear to auscultation anteriorly CVS: Regular rate and rhythm S1 and S2 heard Abdomen: Soft nontender no suprapubic masses no organomegaly appreciable Extremity: Dry skin less than 1+ peripheral edema Musculoskeletal: No joint effusion noted in knees and ankle Neurological: Alert awake Dermatology: No petechial rashes Psychiatry: No evidence of any agitation and aggression noted Assessment and plan Acute on chronic renal failure patient's renal function is currently declining renal ultrasonogram showed evidence of increased renal echogenicity suggestive of underlying chronic kidney disease, likely etiology of renal failure appears to be possibly due to profound renal ischemia possibility of ATN could not be ruled out a long discussion with patient's niece, who is the caregiver, if dialysis is indicated she has no reservations for that and has given me permission for Vas- Cath placement as well as dialysis Will monitor her for need for dialysis I have made her niece aware that her renal function is not good She does understand the seriousness of her renal-related issues No emergent indication for renal placement therapy but may be required if renal function fails to improve Severe leukocytosis, possibility of sepsis could not be excluded Continue to avoid any form of diuretic, JIMBO inhibitor or angiotensin receptor hedy Renal prognosis felt to be guarded to poor at this time patient Prognosis is guarded to poor overall CAT scan finding: ShowsCystic mass in the tail of pancreas, and enlarging right breast mass suspicious for cancer noted on CAT scan, We'll continue to follow and make recommendation from renal standpoint Objective - Vital Signs Vital signs: Vital Signs - 12hr 09/06/18 09/06/18 09/06/18 02:10 07:38 08:00 Temperature 99.0 F 97.8 F Pulse Rate 86 77 77 Pulse Rate [ From Monitor] Respiratory 18 18 Rate Blood Pressure 93/45 Blood Pressure 109/49 [Right] O2 Sat by Pulse 95 94 94 Oximetry 09/06/18 08:29 Temperature Pulse Rate Pulse Rate [ 77 From Monitor] Respiratory 18 Rate Blood Pressure Blood Pressure [Right] O2 Sat by Pulse 94 Oximetry - Lab 09/06/18 02:35 09/06/18 02:35 Most recent lab results Calcium 8.0 mg/dL (8.4-10.2) L D 09/06/18 02:35 Phosphorus 5.80 mg/dL (2.5-4.5) H 09/05/18 05:43 Magnesium 2.20 mg/dL (1.7-2.3) 09/05/18 05:43 Medications & Allergies - Medications Allergies/Adverse Reactions: Allergies No Known Allergies Allergy (Unverified 07/13/16 09:05) Home Medications: Home Medications Medication Instructions Recorded Confirmed Last Taken Type Donepezil HCl [Donepezil HCl Odt] 10 mg PO QHS 07/13/16 09/04/18 Unknown History Folic Acid [Folvite] 1 mg PO DAILY 07/13/16 09/04/18 Unknown History Losartan [Cozaar] 100 mg PO DAILY 07/13/16 09/04/18 Unknown History hydroCHLOROthiazide [HCTZ] 25 mg PO DAILY 07/13/16 09/04/18 Unknown History risperiDONE [RisperiDONE] 1 mg PO QHS 07/13/16 09/04/18 Unknown History Clopidogrel [Plavix] 75 mg PO DAILY 08/11/17 09/04/18 Unknown History Mirabegron [Myrbetriq] 25 mg PO DAILY 08/11/17 09/04/18 Unknown History Sitagliptin Phosphate [Januvia] 100 mg PO DAILY 08/11/17 09/04/18 Unknown H istory Glimepiride [Amaryl] 1 mg PO QAM 09/04/18 09/04/18 Unknown History Insulin Glargine,Hum.rec.anlog 15 unit SQ QHS 09/04/18 09/04/18 Unknown History [Basaglar Kwikpen U-100] Insulin Glargine,Hum.rec.anlog 15 units SQ QHS 09/04/18 09/04/18 Unknown History [Lantus] Lovastatin [Altoprev] 10 mg PO DAILY 09/04/18 09/04/18 Unknown History NIFEdipine [Nifedipine ER] 90 mg PO DAILY 09/04/18 09/04/18 Unknown History Active Medications: Generic Name Dose Route Start Last Admin Trade Name Freq PRN Reason Stop Dose Admin Acetaminophen/Hydrocodone Bitart 1 each 09/04/18 20:49 09/04/18 22:56 [place] 5/325 PO 1 each Q8H PRN Administration Pain, Moderate (4-6) Clopidogrel Bisulfate 75 mg 09/05/18 10:00 09/06/18 09:44 Plavix PO 75 mg DAILY [facility] Administration Dextrose 50 ml 09/05/18 10:01 D50w (25gm) Syringe IV PRN PRN Hypoglycemia Donepezil HCl 10 mg 09/04/18 22:00 09/05/18 21:54 Aricept PO 10 mg QHS [facility] Administration Enoxaparin Sodium 30 mg 09/04/18 22:00 09/05/18 21:54 Lovenox SUB-Q 30 mg QDAY@2200 [facility] Administration Folic Acid 1 mg 09/04/18 21:00 09/06/18 09:44 Folvite PO 1 mg DAILY [facility] Administration Sodium Chloride 1,000 mls @ 100 mls/hr 09/06/18 10:00 Nacl 0.9% 1000 Ml IV DIRECT [facility] Insulin Human Lispro 0 unit 09/05/18 22:00 09/06/18 09:46 Humalog SUB-Q 1 unit ACHS [facility] Administration Protocol Metronidazole 500 mg 09/06/18 14:00 Flagyl PO Q8HR [facility] Protocol Miscellaneous Medication 25 mg 09/04/18 20:45 Mirabegron [Myrbetriq] PO DAILY [facility] Pravastatin Sodium 10 mg 09/04/18 22:00 09/05/18 21:53 Pravachol PO 10 mg QHS [facility] Administration Risperidone 1 mg 09/04/18 22:00 09/05/18 21:53 Risperdal PO 1 mg QHS [facility] Administration
[2018-09-06] MEDS: FLAGYL PO SCH ×2 (15:15→21:18)
[2018-09-06 16:47] LABS: Creatinine,Urine 417.7 mg/dL (0.1-20.0)
[2018-09-06] MEDS: LOVENOX SUB-Q SCH (21:17)
[2018-09-06] MEDS: ARICEPT PO SCH (21:18)
[2018-09-06] MEDS: PRAVACHOL PO SCH (21:18)
[2018-09-06] MEDS: RisperDAL PO SCH (21:18)
[2018-09-07 03:33] LABS: Hematocrit 24.8 % (30.3-42.9); Mean Corpuscular HGB Conc 32 % (30-34); Mean Corpuscular Volume 80 fl (79-97); Platelet Count 118 K/mm3 (140-440); Red Blood Count 3.09 M/mm3 (3.65-5.03); Red Cell Distribution Width 13.8 % (13.2-15.2)
[2018-09-07 03:49] LABS: Albumin 1.6 g/dL (3.9-5)
[2018-09-07] MEDS: NACL 0.9% 1000 ML 1,000 ML IV SCH (04:56)
[2018-09-07] MEDS: FLAGYL PO SCH ×3 (05:04→22:48)
[2018-09-07 06:04] LABS: Band Neutrophils # (Manual) 1.4 K/mm3; Basophils % (Manual) 0 % (0.0-1.8); Crenated RBC Few; Eosinophils % (Manual) 0 % (0.0-4.3); Total Cells Counted 100
[2018-09-07 06:05] LABS: Hypochromasia 1+; Platelet Estimate Appears Decreased; Target Cells Few
[2018-09-07] MEDS: HumaLOG SUB-Q SCH ×4 (08:11→22:49)
--- NOTE | 2018-09-07 08:40 | Progress Note ---
Subjective Principal diagnosis: hypoglycemia, breast mass, pancreatic cyst Interval history: Patient was seen today for follow-up on multiple renal related issues Renal function relatively stable/better Patient is acidotic Patient still appears to be encephalopathic White cell count is still high Vitals labs intake output medications were reviewed Social history: Reviewed Allergies: Reviewed Family history: Reviewed Physical examination HEENT: Oral mucosa moist no pallor or icterus Neck: Supple no JVD Chest: Clear to auscultation anteriorly CVS: Regular rate and rhythm S1 and S2 heard Abdomen: Soft nontender no suprapubic masses no organomegaly appreciable Extremity: Dry skin less than 1+ peripheral edema Musculoskeletal: No joint effusion noted in knees and ankle Neurological: arousable but sleepy Dermatology: No petechial rashes Psychiatry: No evidence of any agitation and aggression noted Assessment and plan Acute kidney injury: Renal function appears to be relatively stable today, likely etiology appears to be acute tubular necrosis Patient should avoid JIMBO inhibitors, angiotensin receptor blockers and diuretic altogether if possible unless absolutely indicated Metabolic acidosis will change IV fluid to the 1 containing bicarbonate and follow-up on the bicarbonate level Her renal prognosis still remains very guarded at this time possibility of dialysis cannot be completely excluded if required family has agreed for short- term dialysis Anemia: Multifactorial current hemoglobin around 8.0 Leukocytosis quite significant with thrombocytopenia now: Monitor platelet count, blood cultures have not shown any growth after 48 hours Recommend doing urine culture as well as chest x-ray for follow-up CAT scan finding: Shows Cystic mass in the tail of pancreas, and enlarging right breast mass suspicious for cancer noted on CAT scan, overall prognosis guarded to poor due to age and multiple comorbidities We'll continue to follow and make recommendation from renal standpoint Objective - Vital Signs Vital signs: Vital Signs - 12hr 09/06/18 09/07/18 09/07/18 22:00 03:38 07:29 Temperature 98.3 F 99.5 F Pulse Rate 72 75 Pulse Rate [ 83 From Monitor] Respiratory 20 20 20 Rate Blood Pressure 105/54 112/50 O2 Sat by Pulse 100 95 99 Oximetry - Lab 09/08/18 04:48 09/08/18 04:48 Most recent lab results Calcium 8.0 mg/dL (8.4-10.2) L 09/07/18 03:11 Phosphorus 5.80 mg/dL (2.5-4.5) H 09/05/18 05:43 Magnesium 2.20 mg/dL (1.7-2.3) 09/05/18 05:43 Urine Creatinine 417.7 mg/dL (0.1-20.0) H 09/06/18 16:20 Urine Sodium 10 mmol/L 09/06/18 16:20 Medications & Allergies - Medications Allergies/Adverse Reactions: Allergies No Known Allergies Allergy (Unverified 07/13/16 09:05) Home Medications: Home Medications Medication Instructions Recorded Confirmed Last Taken Type Donepezil HCl [Donepezil HCl Odt] 10 mg PO QHS 07/13/16 09/04/18 Unknown History Folic Acid [Folvite] 1 mg PO DAILY 07/13/16 09/04/18 Unknown History Losartan [Cozaar] 100 mg PO DAILY 07/13/16 09/04/18 Unknown History hydroCHLOROthiazide [HCTZ] 25 mg PO DAILY 07/13/16 09/04/18 Unknown History risperiDONE [RisperiDONE] 1 mg PO QHS 07/13/16 09/04/18 Unknown History Clopidogrel [Plavix] 75 mg PO DAILY 08/11/17 09/04/18 Unknown History Mirabegron [Myrbetriq] 25 mg PO DAILY 08/11/17 09/04/18 Unknown History Sitagliptin Phosphate [Januvia] 100 mg PO DAILY 08/11/17 09/04/18 Unknown History Glimepiride [Amaryl] 1 mg PO QAM 09/04/18 09/04/18 Unknown History Insulin Glargine,Hum.rec.anlog 15 unit SQ QHS 09/04/18 09/04/18 Unknown History [Basaglar Kwikpen U-100] Insulin Glargine,Hum.rec.anlog 15 units SQ QHS 09/04/18 09/04/18 Unknown History [Lantus] Lovastatin [Altoprev] 10 mg PO DAILY 09/04/18 09/04/18 Unknown History NIFEdipine [Nifedipine ER] 90 mg PO DAILY 09/04/18 09/04/18 Unknown History Active Medications: Generic Name Dose Route Start Last Admin Trade Name Freq PRN Reason Stop Dose Admin Acetaminophen/Hydrocodone Bitart 1 each 09/04/18 20:49 09/04/18 22:56 [place] 5/325 PO 1 each Q8H PRN Administration Pain, Moderate (4-6) Clopidogrel Bisulfate 75 mg 09/05/18 10:00 09/06/18 09:44 Plavix PO 75 mg DAILY [facility] Administration Dextrose 50 ml 09/05/18 10:01 D50w (25gm) Syringe IV PRN PRN Hypoglycemia Donepezil HCl 10 mg 09/04/18 22:00 09/06/18 21:18 Aricept PO 10 mg QHS [facility] Administration Enoxaparin Sodium 30 mg 09/04/18 22:00 09/06/18 21:17 Lovenox SUB-Q 30 mg QDAY@2200 [facility] Administration Folic Acid 1 mg 09/04/18 21:00 09/06/18 09:44 Folvite PO 1 mg DAILY [facility] Administration Sodium Chloride 1,000 mls @ 100 mls/hr 09/06/18 16:00 09/07/18 04:56 Nacl 0.9% 1000 Ml IV 100 mls/hr DIRECT [facility] Administration Insulin Human Lispro 0 unit 09/05/18 22:00 09/07/18 08:11 Humalog SUB-Q Not Given ACHS [facility] Protocol Metronidazole 500 mg 09/06/18 15:00 09/07/18 05:04 Flagyl PO 500 mg Q8HR [facility] Administration Protocol Miscellaneous Medication 25 mg 09/04/18 20:45 Mirabegron [Myrbetriq] PO DAILY [facility] Pravastatin Sodium 10 mg 09/04/18 22:00 09/06/18 21:18 Pravachol PO 10 mg QHS [facility] Administration Risperidone 1 mg 09/04/18 22:00 09/06/18 21:18 Risperdal PO 1 mg QHS [facility] Administration
[2018-09-07] MEDS: FOLVITE PO SCH (09:14)
[2018-09-07] MEDS: PLAVIX PO SCH (09:14)
[2018-09-07] MEDS ORDERED: SODIUM BICARBONATE 150 MEQ in STERILE WATER 1,000 ML IV SCH (10:00)
--- NOTE | 2018-09-07 14:06 | Progress Note ---
Assessment and Plan - Acute on chronic renal failure from [facility]. Worsening Nephrology following - Possible SIRS with Leukocytosis and tachypnea UA was unremarkable Blood cx negative so far imperical antibiotic with Rocephin Obtain CXR continue iv antibiotic - Hypoglycemia - resolved Monitor closely Hold oral hypoglycemic agent - T2DM SSI Consistent Carbohydrate diet - h/o Right breast mass Oncology consult - h/o Pancreatic mass Per CT abdomen and pelvis Called and discussed with pt's Niece, Ms Inez Michele, at [phone] who wanted every thing to be done including biopsy of breast mass and pancreatic mass. Get record [facility]. she had a biopsy of same breast mass 3 yrs ago Aspiration precution - Disposition: Improve renal function stable blood sugar and d/c back to personal alf Subjective Date of service: 09/07/18 Principal diagnosis: hypoglycemia, breast mass, pancreatic cyst Interval history: Ltyingh quietly in bed. Coughing. Drooling. EAsily arousable Objective - Exam Narrative Exam: Constitutional: Confused Well-nourished well-developed. In no distress Head: Normocephalic atraumatic Eyes: Pupils are equal round and reactive to light Nose: No enlarged turbinates, no septal deviation. Mouth: Moist mucous membranes. Neck: Supple no thyromegaly. No bruit. No JVD Heart: Regular rate and rhythm, S1-S2 normal. No rubs murmurs or gallop Lungs: Clear to auscultation bilaterally. no rales or rhonchi Abdomen: Soft, nontender. Bowel sound are present. Extremities: No edema, no cyanosis, no clubbing. Neuro: Alert oriented Oriented x2. No focal sensory or motor deficit. Skin: No rashes or hyperpigmented spots Musculoskeletal system: No joint pain or swelling Hematological: No petechia or subcutanous hemorrhages. Immunological: No multiple septic spots on the skin Lymphatic: No generalized lymphadenopathy Psychiatry: Euthymic. Calm. - Constitutional Vitals: Vital Signs - 12hr 09/07/18 09/07/18 09/07/18 03:38 07:29 10:00 Temperature 98.3 F 99.5 F Pulse Rate 72 75 Pulse Rate [ 75 From Monitor] Respiratory 20 20 20 Rate Blood Pressure 105/54 112/50 O2 Sat by Pulse 95 99 99 Oximetry - Labs CBC & Chem 7: 09/07/18 03:11 09/07/18 03:11 Labs: Abnormal lab results 09/06/18 09/06/18 09/06/18 Range/Units 16:20 16:28 22:02 WBC (4.5-11.0) K/mm3 RBC (3.65-5.03) M/mm3 Hgb (10.1-14.3) gm/dl Hct (30.3-42.9) % MCH (28-32) pg Plt Count (140-440) K/mm3 Seg Neuts % (Manual) (40.0-70.0) % Lymphocytes % (Manual) (13.4-35.0) % Seg Neutrophils # Man (1.8-7.7) K/mm3 Lymphocytes # (Manual) (1.2-5.4) K/mm3 Carbon Dioxide (22-30) mmol/L BUN (7-17) mg/dL Creatinine (0.7-1.2) mg/dL Glucose (65-100) mg/dL POC Glucose 142 H 142 H (70-105) Calcium (8.4-10.2) mg/dL Total Protein (6.3-8.2) g/dL Albumin (3.9-5) g/dL Urine Creatinine 417.7 H (0.1-20.0) mg/dL 09/07/18 09/07/18 09/07/18 Range/Units 03:11 03:11 07:03 WBC 23.7 H (4.5-11.0) K/mm3 RBC 3.09 L (3.65-5.03) M/mm3 Hgb 8.0 L (10.1-14.3) gm/dl Hct 24.8 L (30.3-42.9) % MCH 26 L (28-32) pg Plt Count 118 L (140-440) K/mm3 Seg Neuts % (Manual) 92.0 H (40.0-70.0) % Lymphocytes % (Manual) 1.0 L (13.4-35.0) % Seg Neutrophils # Man 21.8 H (1.8-7.7) K/mm3 Lymphocytes # (Manual) 0.2 L (1.2-5.4) K/mm3 Carbon Dioxide 16 L (22-30) mmol/L BUN 91 H (7-17) mg/dL Creatinine 3.9 H (0.7-1.2) mg/dL Glucose 120 H (65-100) mg/dL POC Glucose 107 H (70-105) Calcium 8.0 L (8.4-10.2) mg/dL Total Protein 5.3 L (6.3-8.2) g/dL Albumin 1.6 L (3.9-5) g/dL Urine Creatinine (0.1-20.0) mg/dL 09/07/18 Range/Units 11:25 WBC (4.5-11.0) K/mm3 RBC (3.65-5.03) M/mm3 Hgb (10.1-14.3) gm/dl Hct (30.3-42.9) % MCH (28-32) pg Plt Count (140-440) K/mm3 Seg Neuts % (Manual) (40.0-70.0) % Lymphocytes % (Manual) (13.4-35.0) % Seg Neutrophils # Man (1.8-7.7) K/mm3 Lymphocytes # (Manual) (1.2-5.4) K/mm3 Carbon Dioxide (22-30) mmol/L BUN (7-17) mg/dL Creatinine (0.7-1.2) mg/dL Glucose (65-100) mg/dL POC Glucose 229 H (70-105) Calcium (8.4-10.2) mg/dL Total Protein (6.3-8.2) g/dL Albumin (3.9-5) g/dL Urine Creatinine (0.1-20.0) mg/dL
--- NOTE | 2018-09-07 16:59 | XRay Report ---
FINAL REPORT EXAM: XR CHEST ROUTINE 2V HISTORY: coughing TECHNIQUE: PA and lateral views of the chest PRIORS: None. FINDINGS: Lines, tubes, and devices: N/A Lungs and pleura: Trachea is normal in position. Mild infiltrate in the left lower lobe is noted. Sma ll bilateral pleural effusions are seen posteriorly. Linear atelectasis in the right midlung is seen. Cardiomediastinal silhouette: Cardiac and mediastinal silhouettes are unremarkable. Other: Bony structures are intact. IMPRESSION: Left lower lobe infiltrate. Small bilateral effusions. Right midlung atelectasis
[2018-09-07] MEDS: RisperDAL PO SCH (22:48)
[2018-09-07] MEDS: PRAVACHOL PO SCH (22:48)
[2018-09-07] MEDS: LOVENOX SUB-Q SCH (22:48)
[2018-09-07] MEDS: ARICEPT PO SCH (22:48)
[2018-09-08 05:54] LABS: Hematocrit 23.7 % (30.3-42.9); Hemoglobin 7.6 gm/dl (10.1-14.3); Mean Corpuscular HGB Conc 32 % (30-34); Mean Corpuscular Volume 80 fl (79-97); Platelet Count 129 K/mm3 (140-440); Red Blood Count 2.97 M/mm3 (3.65-5.03)
[2018-09-08] MEDS: FLAGYL PO SCH ×3 (05:56→22:54)
[2018-09-08 06:22] LABS: Albumin 1.7 g/dL (3.9-5); Calcium 7.9 mg/dL (8.4-10.2)
[2018-09-08] MEDS: HumaLOG SUB-Q SCH ×4 (07:53→22:46)
[2018-09-08 08:49] LABS: Basophils % (Manual) 0 % (0.0-1.8); Myelocytes # (Manual) 0.4 K/mm3; Total Cells Counted 100
[2018-09-08 08:51] LABS: Anisocytosis 1+; Poikilocytosis 1+
--- NOTE | 2018-09-08 08:51 | Progress Note ---
Assessment and Plan Patient is an 88-year-old lady who is well-known to me who currently resides in the past not to history of diabetes mellitus, right breast mass, pancreatic mass, dementia, hypertension, CVA, chronic kidney disease was found to be less arousable at the past not Home with a blood sugar reading of 25. She was given something to eat. EMS was called. Blood sugar improved to 60. Patient was transported to the emergency department. BUN was found to be 64 and creatinine was 2.3. As of July 2017 creatinine was 1.9. WBC was found to be 17.4. Patient was still confused. This was a portable requested. Patient is a poor historian and therefore unable to obtain any reliable history. She is unsure why she was in the hospital. She has become progressively lethargic since after admission as she has not been eating or drinking. Blood sugar has improved to normal. Kidney function worsened but improving with hydration. Nando anemiac. - Lethergic form acute metabolic encephalopathy IV hydration. Correct other underlying factors - Acute on chronic renal failure from ATN. Nephrology following - Possible SIRS with Leukocytosis and tachypnea UA was unremarkable Blood cx negative so far imperical antibiotic with Rocephin Obtain CXR continue iv antibiotic - Anemia of chronic disease Check iron, TIBC, Folate and B2 level Transfuse 1 unit of PRBC - Dehydration Commence cautious iv hydration Will discuss with family about possible NGT placement for feeding and hydration - T2DM SSI Consistent Carbohydrate diet - h/o Right breast mass Lethergic for biopsy for now Oncology consult - h/o Pancreatic mass Per CT abdomen and pelvis Called and discussed with pt's Marcos, Ms Inez Michele, at [phone] who wanted every thing to be done including biopsy of breast mass and pancreatic mass. Get record from [place]. She had a biopsy of same breast mass 3 yrs ago Aspiration precaution Poor prognosis. Discussed with Neurologist who also agrees. Called pt Inez Rodríguez but no response. Left a message - Subjective Date of service: 09/08/18 Principal diagnosis: Acute on chronic kidney failure, hypoglycemia, breast mass, pancreatic cyst Interval history: Lyingh quietly in bed. Coughing. Drooling. Not easily arousable today. No eating or drinking per Pt's nurse Objective - Exam Narrative Exam: Constitutional: Lethergic. In no distress Head: Normocephalic atraumatic Eyes: Pupils are equal round and reactive to light Nose: No enlarged turbinates, no septal deviation. Mouth: Moist mucous membranes. Neck: Supple no thyromegaly. No bruit. No JVD Heart: Regular rate and rhythm, S1-S2 normal. No rubs murmurs or gallop Lungs: Clear to auscultation bilaterally. no rales or rhonchi Abdomen: Soft, nontender. Bowel sound are present. Extremities: No edema, no cyanosis, no clubbing. Neuro: Lethergic. Skin: No rashes or hyperpigmented spots Musculoskeletal system: No joint pain or swelling Hematological: No petechia or subcutanous hemorrhages. Immunological: No multiple septic spots on the skin Lymphatic: No generalized lymphadenopathy Psychiatry: Euthymic. Calm. - Constitutional Vitals: Vital Signs - 12hr 09/07/18 09/08/18 09/08/18 22:00 02:15 07:32 Temperature 99.2 F 98.0 F Pulse Rate 143 H 133 H Pulse Rate [ 143 H From Monitor] Respiratory 22 24 20 Rate Blood Pressure 92/55 88/40 O2 Sat by Pulse 95 92 100 Oximetry 09/08/18 07:37 Temperature Pulse Rate Pulse Rate [ From Monitor] Respiratory Rate Blood Pressure 83/53 O2 Sat by Pulse Oximetry - Labs CBC & Chem 7: 09/08/18 04:48 09/08/18 04:48 Labs: Abnormal lab results 09/07/18 09/07/18 09/07/18 Range/Units 11:25 16:28 21:35 WBC (4.5-11.0) K/mm3 RBC (3.65-5.03) M/mm3 Hgb (10.1-14.3) gm/dl Hct (30.3-42.9) % MCH (28-32) pg Plt Count (140-440) K/mm3 Carbon Dioxide (22-30) mmol/L BUN (7-17) mg/dL Creatinine (0.7-1.2) mg/dL Glucose (65-100) mg/dL POC Glucose 229 H 309 H 235 H (70-105) Calcium (8.4-10.2) mg/dL Total Protein (6.3-8.2) g/dL Albumin (3.9-5) g/dL 09/08/18 09/08/18 09/08/18 Range/Units 04:48 04:48 07:26 WBC 19.0 H (4.5-11.0) K/mm3 RBC 2.97 L (3.65-5.03) M/mm3 Hgb 7.6 L (10.1-14.3) gm/dl Hct 23.7 L (30.3-42.9) % MCH 26 L (28-32) pg Plt Count 129 L (140-440) K/mm3 Carbon Dioxide 19 L (22-30) mmol/L BUN 98 H (7-17) mg/dL Creatinine 3.6 H (0.7-1.2) mg/dL Glucose 136 H (65-100) mg/dL POC Glucose 146 H (70-105) Calcium 7.9 L (8.4-10.2) mg/dL Total Protein 5.3 L (6.3-8.2) g/dL Albumin 1.7 L (3.9-5) g/dL
[2018-09-08 08:52] LABS: Hypochromasia 1+; Ovalocytes 1+; Platelet Estimate Consistent w Auto; Target Cells 1+
--- NOTE | 2018-09-08 08:59 | Progress Note ---
Subjective Principal diagnosis: Acute on chronic kidney failure, hypoglycemia, breast mass, pancreatic cyst Interval history: Patient was seen today for follow-up on multiple renal related issues Intake and output monitoring is not accurate patient is encephalopathic, Patient is in acute renal failure Vitals labs intake output medications were reviewed Social history: Reviewed Allergies: Reviewed Family history: Reviewed Physical examination HEENT: Oral mucosa moist no pallor or icterus Neck: Supple no JVD Chest: Clear to auscultation anteriorly CVS: Regular rate and rhythm S1 and S2 heard Abdomen: Soft nontender no suprapubic masses no organomegaly appreciable Extremity: Dry skin less than 1+ peripheral edema Musculoskeletal: No joint effusion noted in knees and ankle Neurological: Alert awake Dermatology: No petechial rashes Psychiatry: No evidence of any agitation and aggression noted Assessment and plan Acute kidney injury: Renal function appears to be improving, no indication for renal replacement therapy discussed with Patient's overall prognosis however appears to be very poor given her age and multiple comorbidities she is not a suitable flash There are multiple other comorbidities which makes this patient's prognosis poor,continue to treat her conservatively Likely etiology appears to be due to acute tubular necrosis Anemia: Multifactorial Metabolic acidosis appears to be slowly improving No emergent indication for renal replacement therapy however we need to know patient's intake and output accurately A Whit[place] catheter is required at least for the next 24-48 hours Patient needs ongoing monitoring of renal function Prognosis overall guarded to poor Recommend doing urine culture as well as chest x-ray for follow-up CAT scan finding: Shows Cystic mass in the tail of pancreas, and enlarging right breast mass suspicious for cancer noted on CAT scan, overall prognosis guarded to poor due to age and multiple comorbidities We'll continue to follow and make recommendation from renal standpoint Objective - Vital Signs Vital signs: Vital Signs - 12hr 09/07/18 09/08/18 09/08/18 22:00 02:15 07:32 Temperature 99.2 F 98.0 F Pulse Rate 143 H 133 H Pulse Rate [ 143 H From Monitor] Respiratory 22 24 20 Rate Blood Pressure 92/55 88/40 O2 Sat by Pulse 95 92 100 Oximetry 09/08/18 07:37 Temperature Pulse Rate Pulse Rate [ From Monitor] Respiratory Rate Blood Pressure 83/53 O2 Sat by Pulse Oximetry - Lab 09/08/18 04:48 09/08/18 04:48 Most recent lab results Calcium 7.9 mg/dL (8.4-10.2) L 09/08/18 04:48 Phosphorus 4.00 mg/dL (2.5-4.5) 09/08/18 04:48 Magnesium 1.70 mg/dL (1.7-2.3) 09/08/18 04:48 Urine Creatinine 417.7 mg/dL (0.1-20.0) H 09/06/18 16:20 Urine Sodium 10 mmol/L 09/06/18 16:20 Medications & Allergies - Medications Allergies/Adverse Reactions: Allergies No Known Allergies Allergy (Unverified 07/13/16 09:05) Home Medications: Home Medications Medication Instructions Recorded Confirmed Last Taken Type Donepezil HCl [Donepezil HCl Odt] 10 mg PO QHS 07/13/16 09/04/18 Unknown History Folic Acid [Folvite] 1 mg PO DAILY 07/13/16 09/04/18 Unknown History Losartan [Cozaar] 100 mg PO DAILY 07/13/16 09/04/18 Unknown History hydroCHLOROthiazide [HCTZ] 25 mg PO DAILY 07/13/16 09/04/18 Unknown History risperiDONE [RisperiDONE] 1 mg PO QHS 07/13/16 09/04/18 Unknown History Clopidogrel [Plavix] 75 mg PO DAILY 08/11/17 09/04/18 Unknown History Mirabegron [Myrbetriq] 25 mg PO DAILY 08/11/17 09/04/18 Unknown History Sitagliptin Phosphate [Januvia] 100 mg PO DAILY 08/11/17 09/04/18 Unknown History Glimepiride [Amaryl] 1 mg PO QA 09/04/18 09/04/18 Unknown History Insulin Glargine,Hum.rec.anlog 15 unit SQ QHS 09/04/18 09/04/18 Unknown History [Basaglar Kwikpen U-100] Insulin Glargine,Hum.rec.anlog 15 units SQ QHS 09/04/18 09/04/18 Unknown History [Lantus] Lovastatin [Altoprev] 10 mg PO DAILY 09/04/18 09/04/18 Unknown History NIFEdipine [Nifedipine ER] 90 mg PO DAILY 09/04/18 09/04/18 Unknown History Active Medications: Generic Name Dose Route Start Last Admin Trade Name Freq PRN Reason Stop Dose Admin Acetaminophen/Hydrocodone Bitart 1 each 09/04/18 20:49 09/04/18 22:56 [place] 5/325 PO 1 each Q8H PRN Administration Pain, Moderate (4-6) Clopidogrel Bisulfate 75 mg 09/05/18 10:00 09/07/18 09:14 Plavix PO 75 mg DAILY PRISCA Administration Dextrose 50 ml 09/05/18 10:01 D50w (25gm) Syringe IV PRN PRN Hypoglycemia Donepezil HCl 10 mg 09/04/18 22:00 09/07/18 22:48 Aricept PO 10 mg QHS PRISCA Administration Enoxaparin Sodium 30 mg 09/04/18 22:00 09/07/18 22:48 Lovenox SUB-Q 30 mg QDAY@2200 PRISCA Administration Folic Acid 1 mg 09/04/18 21:00 09/07/18 09:14 Folvite PO 1 mg DAILY PRISCA Administration Sodium Bicarbonate 150 meq/ 1,150 mls @ 70 mls/hr 09/07/18 10:00 09/07/18 10:31 Sterile Water IV 70 mls/hr DIRECT PRISCA Administration Insulin Human Lispro 0 unit 09/05/18 22:00 09/08/18 07:53 Humalog SUB-Q Not Given ACHS PRISCA Protocol Metronidazole 500 mg 09/06/18 15:00 09/08/18 05:56 Flagyl PO 500 mg Q8HR PRISCA Administration Protocol Miscellaneous Medication 25 mg 09/04/18 20:45 Mirabegron [Myrbetriq] PO DAILY PRISCA Pravastatin Sodium 10 mg 09/04/18 22:00 09/07/18 22:48 Pravachol PO 10 mg QHS PRISCA Administration Risperidone 1 mg 09/04/18 22:00 09/07/18 22:48 Risperdal PO 1 mg QHS PRISCA Administration
[2018-09-08] MEDS ORDERED: NACL 0.9% 500 ML 500 ML IV NR (09:39)
[2018-09-08] MEDS: FOLVITE PO SCH (10:47)
[2018-09-08] MEDS: PLAVIX PO SCH (10:48)
--- NOTE | 2018-09-08 11:30 | Gastroenterology Consultation ---
History of Present Illness - Reason for Consult Consult date: 09/08/18 pancreatic cystic mass Requesting physician: ADE DOMINGO - History of Present Illness This is a 88 yo female admitted on 09/04/2018 for lethargy, tachypnea, and suspected sepsis. GI consulted for evaluation of pancreatic cystic mass seen on CT abdomen/pelvis. History limited due to patient's altered mental status and lethargy. Patient has been on empiric antibiotics for suspected sepsis although unclear source of infection. WBC rising over the hospital stay. Nephrology on board for acute rise in Cr. CT showed right breast mass as well as enlarging cystic mass in the pancreatic body and tail about 7.7 cm mass with partially calcified wall and low attentuation consistent with fluid. Previous CT without contrast earlier this month showed smaller size of cystic mass in the pancreatic body as well. Past History Past Medical History: diabetes, hypertension, other (dementia, right breast mass, pancreatic mass, CVA, bipolar disorder, diastolic heart failure) Medications and Allergies Allergies Allergy/AdvReac Type Severity Reaction Status Date / Time No Known Allergies Allergy Unverified 07/13/16 09:05 Home Medications Medication Instructions Recorded Confirmed Last Taken Type Donepezil HCl [Donepezil HCl Odt] 10 mg PO QHS 07/13/16 09/04/18 Unknown History Folic Acid [Folvite] 1 mg PO DAILY 07/13/16 09/04/18 Unknown History Losartan [Cozaar] 100 mg PO DAILY 07/13/16 09/04/18 Unknown History hydroCHLOROthiazide [HCTZ] 25 mg PO DAILY 07/13/16 09/04/18 Unknown History risperiDONE [RisperiDONE] 1 mg PO QHS 07/13/16 09/04/18 Unknown History Clopidogrel [Plavix] 75 mg PO DAILY 08/11/17 09/04/18 Unknown History Mirabegron [Myrbetriq] 25 mg PO DAILY 08/11/17 09/04/18 Unknown History Sitagliptin Phosphate [Januvia] 100 mg PO DAILY 08/11/17 09/04/18 Unknown History Glimepiride [Amaryl] 1 mg PO QAM 09/04/18 09/04/18 Unknown History Insulin Glargine,Hum.rec.anlog 15 unit SQ QHS 09/04/18 09/04/18 Unknown History [Juani Stafford U-100] Insulin Glargine,Hum.rec.anlog 15 units SQ QHS 09/04/18 09/04/18 Unknown History [Lantus] Lovastatin [Altoprev] 10 mg PO DAILY 09/04/18 09/04/18 Unknown History NIFEdipine [Nifedipine ER] 90 mg PO DAILY 09/04/18 09/04/18 Unknown History Active Meds: Active Medications Acetaminophen/Hydrocodone Bitart ([place] 5/325) 1 each PO Q8H PRN PRN Reason: Pain, Moderate (4-6) Last Admin: 09/04/18 22:56 Dose: 1 each Documented by: Clopidogrel Bisulfate (Plavix) 75 mg PO DAILY [facility] Last Admin: 09/08/18 10:48 Dose: Not Given Documented by: Dextrose (D50w (25gm) Syringe) 50 ml IV PRN PRN PRN Reason: Hypoglycemia Donepezil HCl (Aricept) 10 mg PO QHS [facility] Last Admin: 09/07/18 22:48 Dose: 10 mg Documented by: Enoxaparin Sodium (Lovenox) 30 mg SUB-Q QDAY@2200 [facility] Last Admin: 09/07/18 22:48 Dose: 30 mg Documented by: Folic Acid (Folvite) 1 mg PO DAILY [facility] Last Admin: 09/08/18 10:47 Dose: Not Given Documented by: Sodium Bicarbonate 150 meq/ (Sterile Water) 1,150 mls @ 70 mls/hr IV DIRECT [facility] Last Admin: 09/07/18 10:31 Dose: 70 mls/hr Documented by: Dextrose/Sodium Chloride (D5/0.45ns) 1,000 mls @ 75 mls/hr IV DIRECT [facility] Sodium Chloride (Nacl 0.9% 500 Ml) 500 mls @ 0 mls/hr IV ONCE NR Stop: 09/08/18 23:59 Insulin Human Lispro (Humalog) 0 unit SUB-Q ACHS [facility]; Protocol Last Admin: 09/08/18 07:53 Dose: Not Given Documented by: Metronidazole (Flagyl) 500 mg PO Q8HR [facility]; Protocol Last Admin: 09/08/18 05:56 Dose: 500 mg Documented by: Miscellaneous Medication (Mirabegron [Myrbetriq]) 25 mg PO DAILY [facility] Pravastatin Sodium (Pravachol) 10 mg PO QHS [facility] Last Admin: 09/07/18 22:48 Dose: 10 mg Documented by: Risperidone (Risperdal) 1 mg PO QHS [facility] Last Admin: 09/07/18 22:48 Dose: 1 mg Documented by: Review of Systems - Review of Systems ROS unobtainable: due to mental status Exam - Constitutional Vital Signs: Temp Pulse Resp BP Pulse Ox 98.0 F 133 H 20 83/53 100 09/08/18 07:32 09/08/18 07:32 09/08/18 07:32 09/08/18 07:37 09/08/18 07:32 General appearance: no acute distress, mild distress, obese, other (lethargic) - Respiratory Respiratory effort: normal Respiratory: bilateral: CTA - Cardiovascular Rhythm: other (tachycardic) Heart Sounds: Present: S1 & S2 - Gastrointestinal General gastrointestinal: Present: soft, non-tender, distended - Integumentary Integumentary: Present: clear, warm - Labs CBC & Chem 7: 09/08/18 04:48 09/08/18 04:48 Lab Results: Laboratory Results - last 24 hr 09/07/18 09/07/18 09/07/18 11:25 16:28 21:35 WBC RBC Hgb Hct MCV MCH MCHC RDW Plt Count Add Manual Diff Total Counted Seg Neuts % (Manual) Band Neutrophils % Lymphocytes % (Manual) Reactive Lymphs % (Man) Monocytes % (Manual) Eosinophils % (Manual) Basophils % (Manual) Metamyelocytes % Myelocytes % Promyelocytes % Blast Cells % Nucleated RBC % Seg Neutrophils # Man Band Neutrophils # Lymphocytes # (Manual) Abs React Lymphs (Man) Monocytes # (Manual) Eosinophils # (Manual) Basophils # (Manual) Metamyelocytes # Myelocytes # Promyelocytes # Blast Cells # WBC Morphology Hypersegmented Neuts Hyposegmented Neuts Hypogranular Neuts Smudge Cells Toxic Granulation Toxic Vacuolation Dohle Bodies Pelger-Huet Anomaly [place] Rods Platelet Estimate Clumped Platelets Plt Clumps, EDTA Large Platelets Giant Platelets Platelet Satelliting Plt Morphology Comment RBC Morphology Dimorphic RBCs Polychromasia Hypochromasia Poikilocytosis Anisocytosis Microcytosis Macrocytosis Spherocytes Pappenheimer Bodies Sickle Cells Target Cells Tear Drop Cells Ovalocytes Helmet Cells [place] Bodies [place] Rings Donny Cells Bite Cells Crenated Cell Elliptocytes Acanthocytes (Spur) Rouleaux Hemoglobin C Crystals Schistocytes Malaria parasites Paul Bodies Hem Pathologist Commnt Sodium Potassium Chloride Carbon Dioxide Anion Gap BUN Creatinine Estimated GFR BUN/Creatinine Ratio Glucose POC Glucose 229 H 309 H 235 H Calcium Phosphorus Magnesium Total Bilirubin AST ALT Alkaline Phosphatase Total Protein Albumin Albumin/Globulin Ratio Blood Type Crossmatch 09/08/18 09/08/18 09/08/18 04:48 04:48 07:26 WBC 19.0 H RBC 2.97 L Hgb 7.6 L Hct 23.7 L MCV 80 MCH 26 L MCHC 32 RDW 14.0 Plt Count 129 L Add Manual Diff Complete Total Counted 100 Seg Neuts % (Manual) 90.0 H Band Neutrophils % 0 Lymphocytes % (Manual) 4.0 L Reactive Lymphs % (Man) 0 Monocytes % (Manual) 3.0 Eosinophils % (Manual) 1.0 Basophils % (Manual) 0 Metamyelocytes % 0 Myelocytes % 2.0 Promyelocytes % 0 Blast Cells % 0 Nucleated RBC % Not Reportable Seg Neutrophils # Man 17.1 H Band Neutrophils # 0.0 Lymphocytes # (Manual) 0.8 L Abs React Lymphs (Man) 0.0 Monocytes # (Manual) 0.6 Eosinophils # (Manual) 0.2 Basophils # (Manual) 0.0 Metamyelocytes # 0.0 Myelocytes # 0.4 Promyelocytes # 0.0 Blast Cells # 0.0 WBC Morphology Not Reportable Hypersegmented Neuts Not Reportable Hyposegmented Neuts Not Reportable Hypogranular Neuts Not Reportable Smudge Cells Not Reportable Toxic Granulation Not Reportable Toxic Vacuolation Not Reportable Dohle Bodies Not Reportable Pelger-Huet Anomaly Not Reportable [place] Rods Not Reportable Platelet Estimate Consistent w auto Clumped Platelets Not Reportable Plt Clumps, EDTA Not Reportable Large Platelets Not Reportable Giant Platelets Not Reportable Platelet Satelliting Not Reportable Plt Morphology Comment Not Reportable RBC Morphology Not Reportable Dimorphic RBCs Not Reportable Polychromasia Not Reportable Hypochromasia 1+ Poikilocytosis 1+ Anisocytosis 1+ Microcytosis Not Reportable Macrocytosis Not Reportable Spherocytes Not Reportable Pappenheimer Bodies Not Reportable Sickle Cells Not Reportable Target Cells 1+ Tear Drop Cells Not Reportable Ovalocytes 1+ Helmet Cells Not Reportable [place] Bodies Not Reportable [place] Rings Not Reportable Donny Cells Not Reportable Bite Cells Not Reportable Crenated Cell Not Reportable Elliptocytes Not Reportable Acanthocytes (Spur) Not Reportable Rouleaux Not Reportable Hemoglobin C Crystals Not Reportable Schistocytes Not Reportable Malaria parasites Not Reportable Paul Bodies Not Reportable Hem Pathologist Commnt No Sodium 141 Potassium 3.9 Chloride 105.7 Carbon Dioxide 19 L Anion Gap 20 BUN 98 H Creatinine 3.6 H Estimated GFR 15 BUN/Creatinine Ratio 27 Glucose 136 H POC Glucose 146 H Calcium 7.9 L Phosphorus 4.00 Magnesium 1.70 Total Bilirubin 0.30 AST 11 ALT 13 Alkaline Phosphatase 71 Total Protein 5.3 L Albumin 1.7 L Albumin/Globulin Ratio 0.5 Blood Type Crossmatch 09/08/18 10:04 WBC RBC Hgb Hct MCV MCH MCHC RDW Plt Count Add Manual Diff Total Counted Seg Neuts % (Manual) Band Neutrophils % Lymphocytes % (Manual) Reactive Lymphs % (Man) Monocytes % (Manual) Eosinophils % (Manual) Basophils % (Manual) Metamyelocytes % Myelocytes % Promyelocytes % Blast Cells % Nucleated RBC % Seg Neutrophils # Man Band Neutrophils # Lymphocytes # (Manual) Abs React Lymphs (Man) Monocytes # (Manual) Eosinophils # (Manual) Basophils # (Manual) Metamyelocytes # Myelocytes # Promyelocytes # Blast Cells # WBC Morphology Hypersegmented Neuts Hyposegmented Neuts Hypogranular Neuts Smudge Cells Toxic Granulation Toxic Vacuolation Dohle Bodies Pelger-Huet Anomaly [place] Rods Platelet Estimate Clumped Platelets Plt Clumps, EDTA Large Platelets Giant Platelets Platelet Satelliting Plt Morphology Comment RBC Morphology Dimorphic RBCs Polychromasia Hypochromasia Poikilocytosis Anisocytosis Microcytosis Macrocytosis Spherocytes Pappenheimer Bodies Sickle Cells Target Cells Tear Drop Cells Ovalocytes Helmet Cells [place] Bodies [place] Rings Donny Cells Bite Cells Crenated Cell Elliptocytes Acanthocytes (Spur) Rouleaux Hemoglobin C Crystals Schistocytes Malaria parasites Paul Bodies Hem Pathologist Commnt Sodium Potassium Chloride Carbon Dioxide Anion Gap BUN Creatinine Estimated GFR BUN/Creatinine Ratio Glucose POC Glucose Calcium Phosphorus Magnesium Total Bilirubin AST ALT Alkaline Phosphatase Total Protein Albumin Albumin/Globulin Ratio Blood Type O POSITIVE Crossmatch See Detail - Imaging CT Scan: report reviewed Assessment and Plan This is a 88 yo female admitted on 09/04/2018 for lethargy, tachypnea, and suspected sepsis. GI consulted for evaluation of pancreatic cystic mass seen on CT abdomen/pelvis. - Patient Problems (1) Pancreatic cyst Current Visit: Yes Status: Acute Plan to address problem: Cystic mass enlarging slightly from previous imaging, about 6.[address] on 08/27/2018 to 7.[address] on 09/04/2018. - history limited given patient's mental status and limited history from family. - ddx including pseudocyst, walled off pancreatic necrosis, cystic neoplasm. Rec: - will check tumor markers including CEA, CA 19-9, AFP - will check amylase, lipase - patient currently on empiric antibiotics for sepsis. - can obtain MRI abdomen w/wo contrast for better characterization when patient's stable enough stay still during the exam.
[2018-09-08] MEDS: D5/0.45NS 1,000 ML IV SCH (11:54)
--- NOTE | 2018-09-08 21:30 | Event Note ---
Date: 09/08/18 ( ) Thanks DR DOMINGO, reviewed this case, I am not actively taking consult now, but will be glad to see her out patient , if ok with you.nothing really acutely needed to be done .
[2018-09-08] MEDS: LOVENOX SUB-Q SCH (22:44)
[2018-09-08] MEDS: ARICEPT PO SCH (22:53)
[2018-09-08] MEDS: PRAVACHOL PO SCH (22:55)
[2018-09-08] MEDS: RisperDAL PO SCH (22:56)
[2018-09-09] MEDS: D5/0.45NS 1,000 ML IV SCH ×3 (05:48→23:28)
[2018-09-09] MEDS: FLAGYL PO SCH ×3 (06:17→23:26)
[2018-09-09 07:53] LABS: Hematocrit 26.8 % (30.3-42.9); Hemoglobin 8.8 gm/dl (10.1-14.3); Mean Corpuscular HGB Conc 33 % (30-34); Mean Corpuscular Volume 79 fl (79-97); Platelet Count 138 K/mm3 (140-440); Red Blood Count 3.38 M/mm3 (3.65-5.03); Red Cell Distribution Width 14.3 % (13.2-15.2)
[2018-09-09] MEDS: HumaLOG SUB-Q SCH ×4 (07:53→23:27)
[2018-09-09 08:26] LABS: Albumin 1.4 g/dL (3.9-5); Calcium 8.1 mg/dL (8.4-10.2)
[2018-09-09 08:47] LABS: Basophils % (Manual) 0 % (0.0-1.8); Myelocytes # (Manual) 0.3 K/mm3; Total Cells Counted 100
--- NOTE | 2018-09-09 08:47 | Progress Note ---
Subjective Principal diagnosis: hypoglycemia, breast mass, pancreatic cyst Interval history: Patient was seen today for follow-up on multiple renal related issues Renal function improving patient is nonoliguric Events of 24 hours noted remains encephalopathic but arousable, Vitals labs intake output medications were reviewed Social history: Reviewed Allergies: Reviewed Family history: Reviewed Physical examination HEENT: Oral mucosa moist no pallor or icterus Neck: Supple no JVD Chest: Clear to auscultation anteriorly CVS: Regular rate and rhythm S1 and S2 heard Abdomen: Soft nontender no suprapubic masses no organomegaly appreciable Extremity: Dry skin less than 1+ peripheral edema Musculoskeletal: No joint effusion noted in knees and ankle Neurological: arousable but sleepy Dermatology: No petechial rashes Psychiatry: No evidence of any agitation and aggression noted Assessment and plan Acute kidney injury: Renal function appears to be relatively stable today, likely etiology appears to be acute tubular necrosis Renal function improving, patient is currently nonoliguric continue to monitor renal function no indication for renal replacement therapy Patient should avoid JIMBO inhibitors, angiotensin receptor blockers and diuretic altogether if possible unless absolutely indicated Continue with supportive care CAT scan finding: Shows Cystic mass in the tail of pancreas, and enlarging right breast mass suspicious for cancer noted on CAT scan, overall prognosis guarded to poor due to age and multiple comorbidities We'll continue to follow and make recommendation from renal standpoint Objective - Vital Signs Vital signs: Vital Signs - 12hr 09/09/18 09/09/18 09/09/18 02:30 02:35 02:44 Temperature 98.1 F 98.5 F Pulse Rate 61 143 H Respiratory 22 24 Rate Blood Pressure 115/54 Blood Pressure 95/55 [Right] O2 Sat by Pulse 99 95 Oximetry 09/09/18 09/09/18 04:50 07:38 Temperature 97.8 F Pulse Rate 65 65 Respiratory 20 20 Rate Blood Pressure 124/52 131/52 Blood Pressure [Right] O2 Sat by Pulse 100 100 Oximetry - Lab 09/09/18 07:20 09/09/18 07:20 Most recent lab results Calcium 8.1 mg/dL (8.4-10.2) L 09/09/18 07:20 Phosphorus 4.00 mg/dL (2.5-4.5) 09/08/18 04:48 Magnesium 1.70 mg/dL (1.7-2.3) 09/08/18 04:48 Urine Creatinine 417.7 mg/dL (0.1-20.0) H 09/06/18 16:20 Urine Sodium 10 mmol/L 09/06/18 16:20 Medications & Allergies - Medications Allergies/Adverse Reactions: Allergies No Known Allergies Allergy (Unverified 07/13/16 09:05) Home Medications: Home Medications Medication Instructions Recorded Confirmed Last Taken Type Donepezil HCl [Donepezil HCl Odt] 10 mg PO QHS 07/13/16 09/04/18 Unknown History Folic Acid [Folvite] 1 mg PO DAILY 07/13/16 09/04/18 Unknown History Losartan [Cozaar] 100 mg PO DAILY 07/13/16 09/04/18 Unknown History hydroCHLOROthiazide [HCTZ] 25 mg PO DAILY 07/13/16 09/04/18 Unknown History risperiDONE [RisperiDONE] 1 mg PO QHS 07/13/16 09/04/18 Unknown History Clopidogrel [Plavix] 75 mg PO DAILY 08/11/17 09/04/18 Unknown History Mirabegron [Myrbetriq] 25 mg PO DAILY 08/11/17 09/04/18 Unknown History Sitagliptin Phosphate [Januvia] 100 mg PO DAILY 08/11/17 09/04/18 Unknown History Glimepiride [Amaryl] 1 mg PO QAM 09/04/18 09/04/18 Unknown History Insulin Glargine,Hum.rec.anlog 15 unit SQ QHS 09/04/18 09/04/18 Unknown History [Basaglar Kwikpen U-100] Insulin Glargine,Hum.rec.anlog 15 units SQ QHS 09/04/18 09/04/18 Unknown History [Lantus] Lovastatin [Altoprev] 10 mg PO DAILY 09/04/18 09/04/18 Unknown History NIFEdipine [Nifedipine ER] 90 mg PO DAILY 09/04/18 09/04/18 Unknown History Active Medications: Generic Name Dose Route Start Last Admin Trade Name Freq PRN Reason Stop Dose Admin Acetaminophen/Hydrocodone Bitart 1 each 09/04/18 20:49 09/04/18 22:56 [place] 5/325 PO 1 each Q8H PRN Administration Pain, Moderate (4-6) Clopidogrel Bisulfate 75 mg 09/05/18 10:00 09/08/18 10:48 Plavix PO Not Given DAILY [facility] Dextrose 50 ml 09/05/18 10:01 D50w (25gm) Syringe IV PRN PRN Hypoglycemia Donepezil HCl 10 mg 09/04/18 22:00 09/08/18 22:53 Aricept PO Not Given QHS [facility] Enoxaparin Sodium 30 mg 09/04/18 22:00 09/08/18 22:44 Lovenox SUB-Q 30 mg QDAY@2200 [facility] Administration Folic Acid 1 mg 09/04/18 21:00 09/08/18 10:47 Folvite PO Not Given DAILY [facility] Sodium Bicarbonate 150 meq/ 1,150 mls @ 70 mls/hr 09/07/18 10:00 09/07/18 10:31 Sterile Water IV 70 mls/hr DIRECT [facility] Administration Dextrose/Sodium Chloride 1,000 mls @ 75 mls/hr 09/08/18 10:00 09/09/18 05:48 D5/0.45ns IV 75 mls/hr DIRECT [facility] Administration Insulin Human Lispro 0 unit 09/05/18 22:00 09/09/18 07:53 Humalog SUB-Q 1 unit ACHS [facility] Administration Protocol Metronidazole 500 mg 09/06/18 15:00 09/09/18 06:17 Flagyl PO Not Given Q8HR [facility] Protocol Miscellaneous Medication 25 mg 09/04/18 20:45 Mirabegron [Myrbetriq] PO DAILY [facility] Pravastatin Sodium 10 mg 09/04/18 22:00 09/08/18 22:55 Pravachol PO Not Given QHS [facility] Risperidone 1 mg 09/04/18 22:00 09/08/18 22:56 Risperdal PO Not Given QHS [facility]
[2018-09-09 08:48] LABS: Anisocytosis 1+
[2018-09-09 08:49] LABS: Ovalocytes 1+; Platelet Estimate Consistent w Auto; Poikilocytosis 1+; Target Cells 1+
--- NOTE | 2018-09-09 08:57 | Progress Note ---
Assessment and Plan Patient is an 88-year-old lady who is well-known to me who currently resides in the past not to history of diabetes mellitus, right breast mass, pancreatic mass, dementia, hypertension, CVA, chronic kidney disease was found to be less arousable at the past not Home with a blood sugar reading of 25. She was given something to eat. EMS was called. Blood sugar improved to 60. Patient was transported to the emergency department. BUN was found to be 64 and creatinine was 2.3. As of July 2017 creatinine was 1.9. WBC was found to be 17.4. Patient was still confused. This was a portable requested. Patient is a poor historian and therefore unable to obtain any reliable history. She is unsure why she was in the hospital. She has become progressively lethargic since after admission as she has not been eating or drinking. Blood sugar has improved to normal. Kidney function worsened but improving with hydration. Nando anemiac. - Lethergic form acute metabolic encephalopathy IV hydration. Correct other underlying factors - Acute on chronic renal failure from ATN. Nephrology following - Pneumonai left lobe UA was unremarkable Blood cx negative so far CXR showd left lobar infiltrate Add Azithromycin continue iv antibiotic - Anemia of chronic disease s/p blood transfusion F/u with iron, TIBC, Folate and B2 level - Dehydration iv hydration Commence cautious iv hydration Will discuss with family about possible NGT placement for feeding and hydration - T2DM SSI Consistent Carbohydrate diet - h/o Right breast mass Lethergic for biopsy for now Oncology consult - h/o Pancreatic mass Per CT abdomen and pelvis Called and discussed with pt's Niece, Ms Inez Michele, at [phone] who wanted every thing to be done including biopsy of breast mass and pancreatic mass. Get record from [place] if someone who will sign the consent is available. She had a biopsy of same breast mass 3 yrs ago GI input appreciated - DVT PPx with lovenox Aspiration precaution Poor prognosis. Discussed with pt's Nurse and Anuel. Still poor prognosis - Subjective Date of service: 09/09/18 Principal diagnosis: Acute on chronic kidney failure, hypoglycemia, breast mass, pancreatic cyst Interval history: Lyingh quietly in bed. minimally responsive. Open her eyes to verbal command only. Still not eating or drinking per Pt's nurse Objective - Exam Narrative Exam: Constitutional: Lethergic. In no distress Head: Normocephalic atraumatic Eyes: Pupils are equal round and reactive to light Nose: No enlarged turbinates, no septal deviation. Mouth: Moist mucous membranes. Neck: Supple no thyromegaly. No bruit. No JVD Heart: Regular rate and rhythm, S1-S2 normal. No rubs murmurs or gallop Lungs: Clear to auscultation bilaterally. no rales or rhonchi Abdomen: Soft, nontender. Bowel sound are present. Extremities: No edema, no cyanosis, no clubbing. Neuro: Lethergic. Skin: No rashes or hyperpigmented spots Musculoskeletal system: No joint pain or swelling Hematological: No petechia or subcutanous hemorrhages. Immunological: No multiple septic spots on the skin Lymphatic: No generalized lymphadenopathy Psychiatry: Euthymic. Calm. - Constitutional Vitals: Vital Signs - 12hr 09/09/18 09/09/18 09/09/18 02:30 02:35 02:44 Temperature 98.1 F 98.5 F Pulse Rate 61 143 H Respiratory 22 24 Rate Blood Pressure 115/54 Blood Pressure 95/55 [Right] O2 Sat by Pulse 99 95 Oximetry 09/09/18 09/09/18 04:50 07:38 Temperature 97.8 F Pulse Rate 65 65 Respiratory 20 20 Rate Blood Pressure 124/52 131/52 Blood Pressure [Right] O2 Sat by Pulse 100 100 Oximetry - Labs CBC & Chem 7: 09/09/18 07:20 09/09/18 07:20 Labs: Abnormal lab results 09/08/18 09/08/18 09/08/18 Range/Units 04:48 10:04 11:25 WBC (4.5-11.0) K/mm3 RBC (3.65-5.03) M/mm3 Hgb (10.1-14.3) gm/dl Hct (30.3-42.9) % MCH (28-32) pg Plt Count (140-440) K/mm3 Seg Neuts % (Manual) 90.0 H (40.0-70.0) % Lymphocytes % (Manual) 4.0 L (13.4-35.0) % Seg Neutrophils # Man 17.1 H (1.8-7.7) K/mm3 Lymphocytes # (Manual) 0.8 L (1.2-5.4) K/mm3 Monocytes # (Manual) (0.0-0.8) K/mm3 Chloride (98-107) mmol/L Carbon Dioxide (22-30) mmol/L BUN (7-17) mg/dL Creatinine (0.7-1.2) mg/dL Glucose (65-100) mg/dL POC Glucose 177 H (70-105) Calcium (8.4-10.2) mg/dL Total Protein (6.3-8.2) g/dL Albumin (3.9-5) g/dL Crossmatch See Detail 09/08/18 09/08/18 09/09/18 Range/Units 16:18 21:56 07:20 WBC 17.3 H (4.5-11.0) K/mm3 RBC 3.38 L (3.65-5.03) M/mm3 Hgb 8.8 L (10.1-14.3) gm/dl Hct 26.8 L (30.3-42.9) % MCH 26 L (28-32) pg Plt Count 138 L (140-440) K/mm3 Seg Neuts % (Manual) 89.0 H (40.0-70.0) % Lymphocytes % (Manual) 2.0 L (13.4-35.0) % Seg Neutrophils # Man 15.4 H (1.8-7.7) K/mm3 Lymphocytes # (Manual) 0.3 L (1.2-5.4) K/mm3 Monocytes # (Manual) 0.9 H (0.0-0.8) K/mm3 Chloride (98-107) mmol/L Carbon Dioxide (22-30) mmol/L BUN (7-17) mg/dL Creatinine (0.7-1.2) mg/dL Glucose (65-100) mg/dL POC Glucose 165 H 172 H (70-105) Calcium (8.4-10.2) mg/dL Total Protein (6.3-8.2) g/dL Albumin (3.9-5) g/dL Crossmatch 09/09/18 09/09/18 Range/Units 07:20 07:36 WBC (4.5-11.0) K/mm3 RBC (3.65-5.03) M/mm3 Hgb (10.1-14.3) gm/dl Hct (30.3-42.9) % MCH (28-32) pg Plt Count (140-440) K/mm3 Seg Neuts % (Manual) (40.0-70.0) % Lymphocytes % (Manual) (13.4-35.0) % Seg Neutrophils # Man (1.8-7.7) K/mm3 Lymphocytes # (Manual) (1.2-5.4) K/mm3 Monocytes # (Manual) (0.0-0.8) K/mm3 Chloride 110.4 H (98-107) mmol/L Carbon Dioxide 18 L (22-30) mmol/L BUN 99 H (7-17) mg/dL Creatinine 2.6 H (0.7-1.2) mg/dL Glucose 166 H (65-100) mg/dL POC Glucose 177 H (70-105) Calcium 8.1 L (8.4-10.2) mg/dL Total Protein 5.5 L (6.3-8.2) g/dL Albumin 1.4 L (3.9-5) g/dL Crossmatch
[2018-09-09 09:48] LABS: Hematocrit 26.5 % (30.3-42.9); Hemoglobin 8.7 gm/dl (10.1-14.3)
[2018-09-09] MEDS: PLAVIX PO SCH (10:00)
[2018-09-09] MEDS: FOLVITE PO SCH (10:00)
[2018-09-09 10:30] LABS: Iron 23 ug/dL (37-170); Total Iron Binding Capacity 109 mcg/dL (250-450)
--- NOTE | 2018-09-09 13:47 | Gastroenterology Progress Note ---
Addendum entered and electronically signed by GUS RECINOS MD 09/09/18 18:09: Patient seen and examined on 09/09/2017. Agree with A/P and recommendations as stated. Patient more alert this afternoon and eating with her family. Pancreatic cystic mass: tumor makers pending. - Recommend MRI abdomen w/wo contrast once patient's renal function improves. Original Note: Assessment and Plan This is a 88 yo female admitted on 09/04/2018 for lethargy, tachypnea, and suspected sepsis. GI consulted for evaluation of pancreatic cystic mass seen on CT abdomen/pelvis. - Patient Problems (1) Pancreatic cyst Current Visit: Yes Status: Acute Plan to address problem: Cystic mass enlarging slightly from previous imaging, about 6.[address] on 08/27/[address] to [address] on 09/04/2018. - history limited given patient's mental status and limited history from family. - ddx including pseudocyst, walled off pancreatic necrosis, cystic neoplasm. Rec: - tumor markers pending (CEA, CA 19-9, AFP) - lipase WNL - patient currently on empiric antibiotics for sepsis. No evidence of abd pain or N/V. - will obtain MRI abdomen w/wo contrast for better characterization when patient's renal function improves (BUN 99, creatinine 2.6-improving) - continue supportive care - will follow Subjective Date of service: 09/09/18 Principal diagnosis: pancreatic mass? Interval history: No acute distress. No evidence of abd pain or N/V. Objective - Constitutional Vitals: Temp Pulse Resp BP Pulse Ox 97.8 F 65 20 131/52 100 09/09/18 07:38 09/09/18 07:38 09/09/18 07:38 09/09/18 07:38 09/09/18 07:38 General appearance: no acute distress - Respiratory Respiratory: bilateral: CTA (anterior) - Cardiovascular Rhythm: regular Heart Sounds: Present: S1 & S2 - Gastrointestinal General gastrointestinal: Present: soft, non-distended, normal bowel sounds - Labs CBC & Chem 7: 09/09/18 09:30 09/09/18 07:20 Labs: Laboratory Results - last 24 hr 09/08/18 09/08/18 09/08/18 10:04 16:18 19:18 WBC RBC Hgb Hct MCV MCH MCHC RDW Plt Count Add Manual Diff Total Counted Seg Neuts % (Manual) Band Neutrophils % Lymphocytes % (Manual) Reactive Lymphs % (Man) Monocytes % (Manual) Eosinophils % (Manual) Basophils % (Manual) Metamyelocytes % Myelocytes % Promyelocytes % Blast Cells % Nucleated RBC % Seg Neutrophils # Man Band Neutrophils # Lymphocytes # (Manual) Abs React Lymphs (Man) Monocytes # (Manual) Eosinophils # (Manual) Basophils # (Manual) Metamyelocytes # Myelocytes # Promyelocytes # Blast Cells # WBC Morphology Hypersegmented Neuts Hyposegmented Neuts Hypogranular Neuts Smudge Cells Toxic Granulation Toxic Vacuolation Dohle Bodies Pelger-Huet Anomaly [place] Rods Platelet Estimate Clumped Platelets Plt Clumps, EDTA Large Platelets Giant Platelets Platelet Satelliting Plt Morphology Comment RBC Morphology Dimorphic RBCs Polychromasia Hypochromasia Poikilocytosis Anisocytosis Microcytosis Macrocytosis Spherocytes Pappenheimer Bodies Sickle Cells Target Cells Tear Drop Cells Ovalocytes Helmet Cells [place] Bodies [place] Rings [place] Cells Bite Cells Crenated Cell Elliptocytes Acanthocytes (Spur) Rouleaux Hemoglobin C Crystals Schistocytes Malaria parasites Paul Bodies Hem Pathologist Commnt Sodium Potassium Chloride Carbon Dioxide Anion Gap BUN Creatinine Estimated GFR BUN/Creatinine Ratio Glucose POC Glucose 165 H Calcium Iron TIBC Total Bilirubin AST ALT Alkaline Phosphatase Total Protein Albumin Albumin/Globulin Ratio Lipase 35 Vitamin B12 Folate Crossmatch See Detail 09/08/18 09/09/18 09/09/18 21:56 07:20 07:20 WBC 17.3 H RBC 3.38 L Hgb 8.8 L Hct 26.8 L MCV 79 MCH 26 L MCHC 33 RDW 14.3 Plt Count 138 L Add Manual Diff Complete Total Counted 100 Seg Neuts % (Manual) 89.0 H Band Neutrophils % 0 Lymphocytes % (Manual) 2.0 L Reactive Lymphs % (Man) 0 Monocytes % (Manual) 5.0 Eosinophils % (Manual) 2.0 Basophils % (Manual) 0 Metamyelocytes % 0 Myelocytes % 2.0 Promyelocytes % 0 Blast Cells % 0 Nucleated RBC % Not Reportable Seg Neutrophils # Man 15.4 H Band Neutrophils # 0.0 Lymphocytes # (Manual) 0.3 L Abs React Lymphs (Man) 0.0 Monocytes # (Manual) 0.9 H Eosinophils # (Manual) 0.3 Basophils # (Manual) 0.0 Metamyelocytes # 0.0 Myelocytes # 0.3 Promyelocytes # 0.0 Blast Cells # 0.0 WBC Morphology Not Reportable Hypersegmented Neuts Not Reportable Hyposegmented Neuts Not Reportable Hypogranular Neuts Not Reportable Smudge Cells Not Reportable Toxic Granulation Not Reportable Toxic Vacuolation Not Reportable Dohle Bodies Not Reportable Pelger-Huet Anomaly Not Reportable [place] Rods Not Reportable Platelet Estimate Consistent w auto Clumped Platelets Not Reportable Plt Clumps, EDTA Not Reportable Large Platelets Not Reportable Giant Platelets Not Reportable Platelet Satelliting Not Reportable Plt Morphology Comment Not Reportable RBC Morphology Not Reportable Dimorphic RBCs Not Reportable Polychromasia Not Reportable Hypochromasia Not Reportable Poikilocytosis 1+ Anisocytosis 1+ Microcytosis Not Reportable Macrocytosis Not Reportable Spherocytes Not Reportable Pappenheimer Bodies Not Reportable Sickle Cells Not Reportable Target Cells 1+ Tear Drop Cells Not Reportable Ovalocytes 1+ Helmet Cells Not Reportable [place] Bodies Not Reportable [place] Rings Not Reportable [place] Cells Not Reportable Bite Cells Not Reportable Crenated Cell Not Reportable Elliptocytes Not Reportable Acanthocytes (Spur) Not Reportable Rouleaux Not Reportable Hemoglobin C Crystals Not Reportable Schistocytes Not Reportable Malaria parasites Not Reportable Paul Bodies Not Reportable Hem Pathologist Commnt No Sodium 144 Potassium 4.3 Chloride 110.4 H Carbon Dioxide 18 L Anion Gap 20 BUN 99 H Creatinine 2.6 H Estimated GFR 21 BUN/Creatinine Ratio 38 Glucose 166 H POC Glucose 172 H Calcium 8.1 L Iron TIBC Total Bilirubin 0.30 AST 14 ALT 13 Alkaline Phosphatase 63 Total Protein 5.5 L Albumin 1.4 L Albumin/Globulin Ratio 0.3 Lipase Vitamin B12 Folate Crossmatch 09/09/18 09/09/18 09/09/18 07:36 09:30 09:30 WBC RBC Hgb 8.7 L Hct 26.5 L MCV MCH MCHC RDW Plt Count Add Manual Diff Total Counted Seg Neuts % (Manual) Band Neutrophils % Lymphocytes % (Manual) Reactive Lymphs % (Man) Monocytes % (Manual) Eosinophils % (Manual) Basophils % (Manual) Metamyelocytes % Myelocytes % Promyelocytes % Blast Cells % Nucleated RBC % Seg Neutrophils # Man Band Neutrophils # Lymphocytes # (Manual) Abs React Lymphs (Man) Monocytes # (Manual) Eosinophils # (Manual) Basophils # (Manual) Metamyelocytes # Myelocytes # Promyelocytes # Blast Cells # WBC Morphology Hypersegmented Neuts Hyposegmented Neuts Hypogranular Neuts Smudge Cells Toxic Granulation Toxic Vacuolation Dohle Bodies Pelger-Huet Anomaly [place] Rods Platelet Estimate Clumped Platelets Plt Clumps, EDTA Large Platelets Giant Platelets Platelet Satelliting Plt Morphology Comment RBC Morphology Dimorphic RBCs Polychromasia Hypochromasia Poikilocytosis Anisocytosis Microcytosis Macrocytosis Spherocytes Pappenheimer Bodies Sickle Cells Target Cells Tear Drop Cells Ovalocytes Helmet Cells [place] Bodies [place] Rings [place] Cells Bite Cells Crenated Cell Elliptocytes Acanthocytes (Spur) Rouleaux Hemoglobin C Crystals Schistocytes Malaria parasites Paul Bodies Hem Pathologist Commnt Sodium Potassium Chloride Carbon Dioxide Anion Gap BUN Creatinine Estimated GFR BUN/Creatinine Ratio Glucose POC Glucose 177 H Calcium Iron 23 L TIBC 109 L Total Bilirubin AST ALT Alkaline Phosphatase Total Protein Albumin Albumin/Globulin Ratio Lipase Vitamin B12 Folate Crossmatch 09/09/18 09/09/18 09/09/18 09:30 09:30 11:28 WBC RBC Hgb Hct MCV MCH MCHC RDW Plt Count Add Manual Diff Total Counted Seg Neuts % (Manual) Band Neutrophils % Lymphocytes % (Manual) Reactive Lymphs % (Man) Monocytes % (Manual) Eosinophils % (Manual) Basophils % (Manual) Metamyelocytes % Myelocytes % Promyelocytes % Blast Cells % Nucleated RBC % Seg Neutrophils # Man Band Neutrophils # Lymphocytes # (Manual) Abs React Lymphs (Man) Monocytes # (Manual) Eosinophils # (Manual) Basophils # (Manual) Metamyelocytes # Myelocytes # Promyelocytes # Blast Cells # WBC Morphology Hypersegmented Neuts Hyposegmented Neuts Hypogranular Neuts Smudge Cells Toxic Granulation Toxic Vacuolation Dohle Bodies Pelger-Huet Anomaly [place] Rods Platelet Estimate Clumped Platelets Plt Clumps, EDTA Large Platelets Giant Platelets Platelet Satelliting Plt Morphology Comment RBC Morphology Dimorphic RBCs Polychromasia Hypochromasia Poikilocytosis Anisocytosis Microcytosis Macrocytosis Spherocytes Pappenheimer Bodies Sickle Cells Target Cells Tear Drop Cells Ovalocytes Helmet Cells [place] Bodies [place] Rings [place] Cells Bite Cells Crenated Cell Elliptocytes Acanthocytes (Spur) Rouleaux Hemoglobin C Crystals Schistocytes Malaria parasites Paul Bodies Hem Pathologist Commnt Sodium Potassium Chloride Carbon Dioxide Anion Gap BUN Creatinine Estimated GFR BUN/Creatinine Ratio Glucose POC Glucose 182 H Calcium Iron TIBC Total Bilirubin AST ALT Alkaline Phosphatase Total Protein Albumin Albumin/Globulin Ratio Lipase Vitamin B12 510.7 Folate 20.0 Crossmatch
[2018-09-09] MEDS: RisperDAL PO SCH (23:26)
[2018-09-09] MEDS: ARICEPT PO SCH (23:26)
[2018-09-09] MEDS: PRAVACHOL PO SCH (23:27)
[2018-09-09] MEDS: LOVENOX SUB-Q SCH (23:27)
[2018-09-10 05:43] LABS: Hematocrit 27.5 % (30.3-42.9); Mean Corpuscular HGB Conc 33 % (30-34); Mean Corpuscular Volume 81 fl (79-97); Platelet Count 135 K/mm3 (140-440); Red Blood Count 3.41 M/mm3 (3.65-5.03); Red Cell Distribution Width 14.3 % (13.2-15.2)
[2018-09-10 06:06] LABS: Albumin 1.4 g/dL (3.9-5); Calcium 7.7 mg/dL (8.4-10.2)
[2018-09-10 06:23] LABS: Anisocytosis 1+; Band Neutrophils # (Manual) 0.4 K/mm3; Basophils % (Manual) 0 % (0.0-1.8); Eosinophils % (Manual) 0 % (0.0-4.3); Hypochromasia 1+; Poikilocytosis 1+; Total Cells Counted 100
[2018-09-10 06:24] LABS: Helmet Cells Rare; Large Platelets Rare; Ovalocytes 2+
[2018-09-10] MEDS: D5/0.45NS 1,000 ML IV SCH ×3 (07:11→22:20)
[2018-09-10] MEDS: FLAGYL PO SCH ×3 (07:12→22:12)
[2018-09-10] MEDS: HumaLOG SUB-Q SCH ×4 (08:30→22:13)
--- NOTE | 2018-09-10 08:38 | Progress Note ---
Assessment and Plan Patient is an 88-year-old lady who is well-known to me who currently resides in the past not to history of diabetes mellitus, right breast mass, pancreatic mass, dementia, hypertension, CVA, chronic kidney disease was found to be less arousable at the past not Home with a blood sugar reading of 25. She was given something to eat. EMS was called. Blood sugar improved to 60. Patient was transported to the emergency department. BUN was found to be 64 and creatinine was 2.3. As of July 2017 creatinine was 1.9. WBC was found to be 17.4. Patient was still confused. This was a portable requested. Patient is a poor historian and therefore unable to obtain any reliable history. She is unsure why she was in the hospital. She has become progressively lethargic since after admission as she has not been eating or drinking. Blood sugar has improved to normal. Kidney function worsened but improving with hydration. Nando anemiac. -Acute metabolic encephalopathy Multi factorial IV hydration. Correct other underlying factors - Acute on chronic renal failure - improving from ATN. Nephrology following - Pneumonai left lobe Blood cx negative so far CXR showed left lobar infiltrate Continue with Azithromycin and Rocephine - Anemia of chronic disease s/p blood transfusion Iron def and TIBC are all consistent with Anemia of chronic disease - Moderate to Severe Malnutrition Dietary consult - Dehydration - imporving iv hydration Commence cautious iv hydration Will discuss with family about possible NGT placement for feeding and hydration - T2DM SSI Consistent Carbohydrate diet - h/o Right breast mass Lethergic for biopsy for now Will obtain Ultrasound guided bx when more alert Oncology consult - h/o Pancreatic mass Per CT abdomen and pelvis Called and discussed with pt's Roselynece, Ms Inez Michele, at [phone] who wanted every thing to be done including biopsy of breast mass and pancreatic mass. Get record from [place] if someone who will sign the consent is available. She had a biopsy of same breast mass 3 yrs ago GI input appreciated. Fro MRI when pt is more stable - DVT PPx with lovenox Aspiration precaution Poor prognosis. Discussed with pt's Nurse and Anuel. in my discussion with Pt ' s Marcos yesterday, she wanted pt to be transferred to [facility] because it is closer to her. She was devised that [place] may not accept her on that ground. Still wants to try with her contact over there. Cll her todsy but no response. No voice mail came up either. - Subjective Date of service: 09/10/18 Principal diagnosis: hypoglycemia, breast mass, pancreatic cyst Interval history: Lyingh quietly in bed. More alert today Open her eyes to verbal command with minimal verbal output. Discussed with pt nurse. No overnight event reported to me Objective - Exam Narrative Exam: Constitutional: less Lethergic. In no distress Head: Normocephalic atraumatic Eyes: Pupils are equal round and reactive to light Nose: No enlarged turbinates, no septal deviation. Mouth: Moist mucous membranes. Neck: Supple no thyromegaly. No bruit. No JVD Heart: Regular rate and rhythm, S1-S2 normal. No rubs murmurs or gallop Lungs: Clear to auscultation bilaterally. no rales or rhonchi Abdomen: Soft, nontender. Bowel sound are present. Extremities: No edema, no cyanosis, no clubbing. Neuro: Lethergic. Skin: No rashes or hyperpigmented spots Musculoskeletal system: No joint pain or swelling Hematological: No petechia or subcutanous hemorrhages. Immunological: No multiple septic spots on the skin Lymphatic: No generalized lymphadenopathy Psychiatry: Euthymic. Calm. - Constitutional Vitals: Vital Signs - 12hr 09/09/18 09/10/18 09/10/18 22:00 02:00 02:31 Temperature 98.0 F Pulse Rate 67 Respiratory 20 22 Rate Respiratory 20 Rate [Right Hip ] Blood Pressure 147/55 O2 Sat by Pulse 99 100 Oximetry - Labs CBC & Chem 7: 09/10/18 04:53 09/10/18 04:53 Labs: Abnormal lab results 09/09/18 09/09/18 09/09/18 Range/Units 07:20 09:30 09:30 WBC (4.5-11.0) K/mm3 RBC (3.65-5.03) M/mm3 Hgb 8.7 L (10.1-14.3) gm/dl Hct 26.5 L (30.3-42.9) % MCH (28-32) pg Plt Count (140-440) K/mm3 Seg Neuts % (Manual) 89.0 H (40.0-70.0) % Lymphocytes % (Manual) 2.0 L (13.4-35.0) % Seg Neutrophils # Man 15.4 H (1.8-7.7) K/mm3 Lymphocytes # (Manual) 0.3 L (1.2-5.4) K/mm3 Monocytes # (Manual) 0.9 H (0.0-0.8) K/mm3 Carbon Dioxide (22-30) mmol/L BUN (7-17) mg/dL Creatinine (0.7-1.2) mg/dL Glucose (65-100) mg/dL POC Glucose (70-105) Calcium (8.4-10.2) mg/dL Iron 23 L (37-170) ug/dL TIBC 109 L (250-450) mcg/dL Total Protein (6.3-8.2) g/dL Albumin (3.9-5) g/dL 09/09/18 09/09/18 09/09/18 Range/Units 11:28 16:36 21:45 WBC (4.5-11.0) K/mm3 RBC (3.65-5.03) M/mm3 Hgb (10.1-14.3) gm/dl Hct (30.3-42.9) % MCH (28-32) pg Plt Count (140-440) K/mm3 Seg Neuts % (Manual) (40.0-70.0) % Lymphocytes % (Manual) (13.4-35.0) % Seg Neutrophils # Man (1.8-7.7) K/mm3 Lymphocytes # (Manual) (1.2-5.4) K/mm3 Monocytes # (Manual) (0.0-0.8) K/mm3 Carbon Dioxide (22-30) mmol/L BUN (7-17) mg/dL Creatinine (0.7-1.2) mg/dL Glucose (65-100) mg/dL POC Glucose 182 H 264 H 180 H (70-105) Calcium (8.4-10.2) mg/dL Iron (37-170) ug/dL TIBC (250-450) mcg/dL Total Protein (6.3-8.2) g/dL Albumin (3.9-5) g/dL 09/10/18 09/10/18 09/10/18 Range/Units 04:53 04:53 07:54 WBC 13.9 H (4.5-11.0) K/mm3 RBC 3.41 L (3.65-5.03) M/mm3 Hgb 9.0 L (10.1-14.3) gm/dl Hct 27.5 L (30.3-42.9) % MCH 26 L (28-32) pg Plt Count 135 L (140-440) K/mm3 Seg Neuts % (Manual) 86.0 H (40.0-70.0) % Lymphocytes % (Manual) 6.0 L (13.4-35.0) % Seg Neutrophils # Man 12.0 H (1.8-7.7) K/mm3 Lymphocytes # (Manual) 0.8 L (1.2-5.4) K/mm3 Monocytes # (Manual) (0.0-0.8) K/mm3 Carbon Dioxide 19 L (22-30) mmol/L BUN 81 H (7-17) mg/dL Creatinine 2.0 H (0.7-1.2) mg/dL Glucose 286 H (65-100) mg/dL POC Glucose 326 H (70-105) Calcium 7.7 L (8.4-10.2) mg/dL Iron (37-170) ug/dL TIBC (250-450) mcg/dL Total Protein 4.9 L (6.3-8.2) g/dL Albumin 1.4 L (3.9-5) g/dL
--- NOTE | 2018-09-10 09:38 | Progress Note ---
Subjective Principal diagnosis: hypoglycemia, breast mass, pancreatic cyst Interval history: Patient was seen today for follow-up on multiple renal related issues Function appears to be improving Vitals labs intake output medications were reviewed Social history: Reviewed Allergies: Reviewed Family history: Reviewed Physical examination HEENT: Oral mucosa moist no pallor or icterus Neck: Supple no JVD Chest: Clear to auscultation anteriorly CVS: Regular rate and rhythm S1 and S2 heard Abdomen: Soft nontender no suprapubic masses no organomegaly appreciable Extremity: Dry skin less than 1+ peripheral edema Musculoskeletal: No joint effusion noted in knees and ankle Neurological: arousable but sleepy Dermatology: No petechial rashes Psychiatry: No evidence of any agitation and aggression noted Assessment and plan Acute kidney injury in a patient who is 88-year-old likely 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 Her BUN is slowly coming down so his creatinine currently around 2 Blood sugar requires better control Patient does not require renal replacement therapy her renal function appears to be improving well Anemia improving hemoglobin currently 9.0 Thrombocytopenia stable Maintain judicious hydration monitor intake and output Pancreatic mass to her markers currently pending followed by gastroenterology Would avoid radiocontrast or MRI contrast with renal failure for now Patient also has a mass in her breast Patient is 88-year-old with multiple comorbidities are prognosis is very poor, albumin is only 1.4 poor prognostic indicator in my opinion she is palliative care appropriate Renal care plan has already been discussed with patient's family during this admission Continue to patiently monitor renal function We'll continue to follow and make recommendation from renal standpoint Objective - Vital Signs Vital signs: Vital Signs - 12hr 09/09/18 09/10/18 09/10/18 22:00 02:00 02:31 Temperature 98.0 F Pulse Rate 67 Respiratory 20 22 Rate Respiratory 20 Rate [Right Hip ] Blood Pressure 147/55 O2 Sat by Pulse 99 100 Oximetry 09/10/18 07:50 Temperature 98.5 F Pulse Rate 60 Respiratory 20 Rate Respiratory Rate [Right Hip ] Blood Pressure 137/52 O2 Sat by Pulse 100 Oximetry - Lab 09/10/18 04:53 09/10/18 04:53 Most recent lab results Calcium 7.7 mg/dL (8.4-10.2) L 09/10/18 04:53 Phosphorus 4.00 mg/dL (2.5-4.5) 09/08/18 04:48 Magnesium 1.70 mg/dL (1.7-2.3) 09/08/18 04:48 Urine Creatinine 417.7 mg/dL (0.1-20.0) H 09/06/18 16:20 Urine Sodium 10 mmol/L 09/06/18 16:20 Medications & Allergies - Medications Allergies/Adverse Reactions: Allergies No Known Allergies Allergy (Unverified 07/13/16 09:05) Home Medications: Home Medications Medication Instructions Recorded Confirmed Last Taken Type Donepezil HCl [Donepezil HCl Odt] 10 mg PO QHS 07/13/16 09/04/18 Unknown History Folic Acid [Folvite] 1 mg PO DAILY 07/13/16 09/04/18 Unknown History Losartan [Cozaar] 100 mg PO DAILY 07/13/16 09/04/18 Unknown History hydroCHLOROthiazide [HCTZ] 25 mg PO DAILY 07/13/16 09/04/18 Unknown History risperiDONE [RisperiDONE] 1 mg PO QHS 07/13/16 09/04/18 Unknown History Clopidogrel [Plavix] 75 mg PO DAILY 08/11/17 09/04/18 Unknown History Mirabegron [Myrbetriq] 25 mg PO DAILY 08/11/17 09/04/18 Unknown History Sitagliptin Phosphate [Januvia] 100 mg PO DAILY 08/11/17 09/04/18 Unknown History Glimepiride [Amaryl] 1 mg PO QAM 09/04/18 09/04/18 Unknown History Insulin Glargine,Hum.rec.anlog 15 unit SQ QHS 09/04/18 09/04/18 Unknown History [Basaglar Kwikpen U-100] Insulin Glargine,Hum.rec.anlog 15 units SQ QHS 09/04/18 09/04/18 Unknown History [Lantus] Lovastatin [Altoprev] 10 mg PO DAILY 09/04/18 09/04/18 Unknown History NIFEdipine [Nifedipine ER] 90 mg PO DAILY 09/04/18 09/04/18 Unknown History Active Medications: Generic Name Dose Route Start Last Admin Trade Name Freq PRN Reason Stop Dose Admin Acetaminophen/Hydrocodone Bitart 1 each 09/04/18 20:49 09/04/18 22:56 [place] 5/325 PO 1 each Q8H PRN Administration Pain, Moderate (4-6) Clopidogrel Bisulfate 75 mg 09/05/18 10:00 09/09/18 10:00 Plavix PO Not Given DAILY PRISCA Dextrose 50 ml 09/05/18 10:01 D50w (25gm) Syringe IV PRN PRN Hypoglycemia Donepezil HCl 10 mg 09/04/18 22:00 09/09/18 23:26 Aricept PO 10 mg QHS PRISCA Administration Enoxaparin Sodium 30 mg 09/04/18 22:00 09/09/18 23:27 Lovenox SUB-Q 30 mg QDAY@2200 PRISCA Administration Folic Acid 1 mg 09/04/18 21:00 09/09/18 10:00 Folvite PO Not Given DAILY PRISCA Sodium Bicarbonate 150 meq/ 1,150 mls @ 70 mls/hr 09/07/18 10:00 09/07/18 10:31 Sterile Water IV 70 mls/hr DIRECT PRISCA Administration Dextrose/Sodium Chloride 1,000 mls @ 125 mls/hr 09/09/18 09:00 09/10/18 07:11 D5/0.45ns IV 125 mls/hr DIRECT PRISCA Administration Insulin Human Lispro 0 unit 09/05/18 22:00 09/10/18 08:30 Humalog SUB-Q 4 unit ACHS PRISCA Administration Protocol Metronidazole 500 mg 09/06/18 15:00 09/10/18 07:12 Flagyl PO Not Given Q8HR PRISCA Protocol Miscellaneous Medication 25 mg 09/04/18 20:45 Mirabegron [Myrbetriq] PO DAILY PRISCA Pravastatin Sodium 10 mg 09/04/18 22:00 09/09/18 23:27 Pravachol PO 10 mg QHS PRISCA Administration Risperidone 1 mg 09/04/18 22:00 09/09/18 23:26 Risperdal PO 1 mg QHS PRISCA Administration
[2018-09-10] MEDS: PLAVIX PO SCH (10:00)
[2018-09-10] MEDS: FOLVITE PO SCH (10:00)
--- NOTE | 2018-09-10 14:22 | Gastroenterology Progress Note ---
Addendum entered and electronically signed by GUS RECINOS MD 09/10/18 18:18: Patient seen and examined. Agree with A/P. - recommend MRI once renal function improves and can be also done as outpatient. - will sign off. please call with questions. Original Note: Assessment and Plan This is a 88 yo female admitted on 09/04/2018 for lethargy, tachypnea, and suspected sepsis. GI consulted for evaluation of pancreatic cystic mass seen on CT abdomen/pelvis. - Patient Problems (1) Pancreatic cyst Current Visit: Yes Status: Acute Plan to address problem: Cystic mass enlarging slightly from previous imaging, about 6.[address] on 08/27/2018 to 7[address] on 09/04/2018. - history limited given patient's mental status and limited history from family. - ddx including pseudocyst, walled off pancreatic necrosis, cystic neoplasm. Rec: - tumor markers pending (CEA, CA 19-9, AFP) - lipase and LFTs WNL - clinically no evidence of abd pain or N/V. - hold MRI abdomen w/wo contrast for now until renal function as returned to normal per nephrology recommendations - if family wants to proceed with workup once renal failure resolves, recommend above MRI, however given age and multiple comorbids, patient may be a candidate for pallitative care- further discussion regarding plan of care per primary team - continue supportive care - will sign off for now, please re-consult if needed once MRI is complete if res ults abnormal Subjective Date of service: 09/10/18 Principal diagnosis: pancreatic mass Interval history: No acute distress. No evidence of abd pain or N/V. Objective - Constitutional Vitals: Temp Pulse Resp BP Pulse Ox 98.1 F 64 20 153/63 100 09/10/18 13:22 09/10/18 13:22 09/10/18 13:22 09/10/18 13:22 09/10/18 13:22 General appearance: no acute distress - Respiratory Respiratory: bilateral: diminished - Cardiovascular Rhythm: regular Heart Sounds: Present: S1 & S2 - Gastrointestinal General gastrointestinal: Present: soft, normal bowel sounds - Labs CBC & Chem 7: 09/10/18 04:53 09/10/18 04:53 Labs: Laboratory Results - last 24 hr 09/09/18 09/09/18 09/10/18 16:36 21:45 04:53 WBC 13.9 H RBC 3.41 L Hgb 9.0 L Hct 27.5 L MCV 81 MCH 26 L MCHC 33 RDW 14.3 Plt Count 135 L Add Manual Diff Complete Total Counted 100 Seg Neuts % (Manual) 86.0 H Band Neutrophils % 3.0 Lymphocytes % (Manual) 6.0 L Reactive Lymphs % (Man) 0 Monocytes % (Manual) 4.0 Eosinophils % (Manual) 0 Basophils % (Manual) 0 Metamyelocytes % 1.0 Myelocytes % 0 Promyelocytes % 0 Blast Cells % 0 Nucleated RBC % Not Reportable Seg Neutrophils # Man 12.0 H Band Neutrophils # 0.4 Lymphocytes # (Manual) 0.8 L Abs React Lymphs (Man) 0.0 Monocytes # (Manual) 0.6 Eosinophils # (Manual) 0.0 Basophils # (Manual) 0.0 Metamyelocytes # 0.1 Myelocytes # 0.0 Promyelocytes # 0.0 Blast Cells # 0.0 WBC Morphology Not Reportable Hypersegmented Neuts Not Reportable Hyposegmented Neuts Not Reportable Hypogranular Neuts Not Reportable Smudge Cells Not Reportable Toxic Granulation Not Reportable Toxic Vacuolation Not Reportable Dohle Bodies Not Reportable Pelger-Huet Anomaly Not Reportable [place] Rods Not Reportable Platelet Estimate Appears normal Clumped Platelets Not Reportable Plt Clumps, EDTA Not Reportable Large Platelets Rare Giant Platelets Not Reportable Platelet Satelliting Not Reportable Plt Morphology Comment Not Reportable RBC Morphology Not Reportable Dimorphic RBCs Not Reportable Polychromasia Rare Hypochromasia 1+ Poikilocytosis 1+ Anisocytosis 1+ Microcytosis Not Reportable Macrocytosis Not Reportable Spherocytes Not Reportable Pappenheimer Bodies Not Reportable Sickle Cells Not Reportable Target Cells Not Reportable Tear Drop Cells Not Reportable Ovalocytes 2+ Helmet Cells Rare [place] Bodies Not Reportable [place] Rings Not Reportable Happy Cells Not Reportable Bite Cells Not Reportable Crenated Cell Not Reportable Elliptocytes Not Reportable Acanthocytes (Spur) Rare Rouleaux Not Reportable Hemoglobin C Crystals Not Reportable Schistocytes Not Reportable Malaria parasites Not Reportable Paul Bodies Not Reportable Hem Pathologist Commnt No Sodium Potassium Chloride Carbon Dioxide Anion Gap BUN Creatinine Estimated GFR BUN/Creatinine Ratio Glucose POC Glucose 264 H 180 H Calcium Total Bilirubin AST ALT Alkaline Phosphatase Total Protein Albumin Albumin/Globulin Ratio 09/10/18 09/10/18 04:53 07:54 WBC RBC Hgb Hct MCV MCH MCHC RDW Plt Count Add Manual Diff Total Counted Seg Neuts % (Manual) Band Neutrophils % Lymphocytes % (Manual) Reactive Lymphs % (Man) Monocytes % (Manual) Eosinophils % (Manual) Basophils % (Manual) Metamyelocytes % Myelocytes % Promyelocytes % Blast Cells % Nucleated RBC % Seg Neutrophils # Man Band Neutrophils # Lymphocytes # (Manual) Abs React Lymphs (Man) Monocytes # (Manual) Eosinophils # (Manual) Basophils # (Manual) Metamyelocytes # Myelocytes # Promyelocytes # Blast Cells # WBC Morphology Hypersegmented Neuts Hyposegmented Neuts Hypogranular Neuts Smudge Cells Toxic Granulation Toxic Vacuolation Dohle Bodies Pelger-Huet Anomaly [place] Rods Platelet Estimate Clumped Platelets Plt Clumps, EDTA Large Platelets Giant Platelets Platelet Satelliting Plt Morphology Comment RBC Morphology Dimorphic RBCs Polychromasia Hypochromasia Poikilocytosis Anisocytosis Microcytosis Macrocytosis Spherocytes Pappenheimer Bodies Sickle Cells Target Cells Tear Drop Cells Ovalocytes Helmet Cells [place] Bodies [place] Rings Happy Cells Bite Cells Crenated Cell Elliptocytes Acanthocytes (Spur) Rouleaux Hemoglobin C Crystals Schistocytes Malaria parasites Paul Bodies Hem Pathologist Commnt Sodium 138 Potassium 3.7 Chloride 105.7 Carbon Dioxide 19 L Anion Gap 17 BUN 81 H Creatinine 2.0 H Estimated GFR 29 BUN/Creatinine Ratio 41 Glucose 286 H POC Glucose 326 H Calcium 7.7 L Total Bilirubin 0.20 AST 11 ALT 12 Alkaline Phosphatase 58 Total Protein 4.9 L Albumin 1.4 L Albumin/Globulin Ratio 0.4
--- NOTE | 2018-09-10 21:27 | Event Note ---
Date: 09/10/[id number] breast mass pancreatic mass poor performance status
[2018-09-10] MEDS: LOVENOX SUB-Q SCH (22:12)
[2018-09-10] MEDS: PRAVACHOL PO SCH (22:12)
[2018-09-10] MEDS: ARICEPT PO SCH (22:20)
[2018-09-10] MEDS: RisperDAL PO SCH (22:20)
--- NOTE | 2018-09-10 22:52 | Consultation ---
REFERRED BY: Toma Villalobos MD REASON FOR CONSULTATION: Breast mass, pancreatic mass. HISTORY OF PRESENT ILLNESS: I saw the patient, an 88-year-old female in the medical floor. Most of the information came from the nursing staff and medical records, the patient was not communicating. She is a poor historian. Past medical history of diabetes, right breast mass, pancreatic mass, dementia, hypertension, CVA, chronic kidney disease, was less arousable and home blood sugar was 25. EMS was called. Blood sugar later improved. The patient was sent to hospital. Creatinine was elevated. As per the information available, the patient had breast mass biopsy at 33 years ago and was told she did not have cancer; however, radiology report now mentions increase in size of the breast mass suggesting neoplastic process. Radiology also mentioned pancreatic mass. Tumor markers have been ordered. GI team has seen the patient. PAST MEDICAL HISTORY: As above. ALLERGIES: None. HOME MEDICATIONS: Include donepezil, folic acid, losartan, risperidone, Plavix, Januvia, Amaryl, insulin, lovastatin. REVIEW OF SYSTEMS: Not reliable because of the patient's condition. PHYSICAL EXAMINATION: VITAL SIGNS: Temperature 98, pulse 67, respirations 18, BP 157/51. HEENT: Mild pallor, no icterus. NECK: No neck lymph nodes. BREASTS: Right breast lump present. HEART: S1, S2. LUNGS: Clear to auscultation. ABDOMEN: Soft. NEUROLOGIC: Awake, nonverbal. LABORATORY DATA: White cell 13, hemoglobin 9, MCV 81, platelet 135. Potassium 3.7, creatinine 2, calcium 7.7, bilirubin 0.2. RADIOLOGY: CT abdomen done on 09/04/2018 showed a 7.7 cm body/tail of the pancreas mass. Right breast mass also is 2.5. It was 1.7 in July. ASSESSMENT: 1. Breast mass. As per the information available, she has had a biopsy done at [facility] 3 years ago, but now Radiology shows increase in tumor, this may be a neoplastic process; however, biopsy would be needed. The patient's performance status is not very good. We will discuss with family members to see how much investigation needs to be done. 2. Pancreatic mass, body/tail, it is 7.7 cm. Gastrointestinal team has seen the patient. CA 19-9 has been ordered. 3. Dementia. 4. Diabetes. 5. Hypertension. 6. Hyperlipidemia. 7. The patient had hypoglycemia. 8. Renal impairment. 9. Mild thrombocytopenia. JOB# [id number] NM/NTS
[2018-09-11] MEDS: FLAGYL PO SCH ×3 (05:53→21:41)
[2018-09-11] MEDS: HumaLOG SUB-Q SCH ×4 (07:30→22:55)
[2018-09-11] MEDS: D5/0.45NS 1,000 ML IV SCH ×3 (07:52→19:08)
--- NOTE | 2018-09-11 08:47 | Progress Note ---
Assessment and Plan Patient is an 88-year-old lady who is well-known to me who currently resides in the past not to history of diabetes mellitus, right breast mass, pancreatic mass, dementia, hypertension, CVA, chronic kidney disease was found to be less arousable at the past not Home with a blood sugar reading of 25. She was given something to eat. EMS was called. Blood sugar improved to 60. Patient was transported to the emergency department. BUN was found to be 64 and creatinine was 2.3. As of July 2017 creatinine was 1.9. WBC was found to be 17.4. Patient was still confused. This was a portable requested. Patient is a poor historian and therefore unable to obtain any reliable history. She is unsure why she was in the hospital. She has become progressively lethargic since after admission as she has not been eating or drinking. Blood sugar has improved to normal. Kidney function worsened but improving with hydration. Nando anemiac. -Acute metabolic encephalopathy Multi factorial IV hydration. Correct other underlying factors - Acute on chronic renal failure - improving from ATN. Nephrology following - Pneumonai left lobe Blood cx negative so far CXR showed left lobar infiltrate Leukocytosis improving Continue with Azithromycin and Rocephine - Anemia of chronic disease s/p blood transfusion. Stable Iron def and TIBC are all consistent with Anemia of chronic disease - Moderate to Severe Malnutrition Dietary consult - Dehydration - improving iv hydration Commence cautious iv hydration - T2DM SSI Consistent Carbohydrate diet - h/o Right breast mass Lethergic for biopsy for now Will obtain Ultrasound guided bx when more alert. Family wnat everything done Oncology consulted. Input appreciated - H/o Pancreatic mass Per CT abdomen and pelvis Called and discussed with pt's Niece, Ms Inez Michele, at [phone] who wanted every thing to be done including biopsy of breast mass and pancreatic mas s. Get record from [facility] if someone who will sign the consent is available. She had a biopsy of same breast mass 3 yrs ago GI input appreciated. Fro MRI when pt is more stable - DVT PPx with lovenox Aspiration precaution Discussed with pt's Nurse and Niece. Marcos still wanted pt to be transferred to [facility] because it is closer to her. She was devised that [facility] may not accept her on that ground. Still wants to try with her contacts over there. Called her today but no response. No voice mail came up either. - Subjective Date of service: 09/11/18 Principal diagnosis: pancreatic mass Interval history: Sitting up in bed and being fed breakfast. Alert Discussed with pt nurse. No overnight event reported to me. discussed withpt's nurse Objective - Exam Narrative Exam: Constitutional: Alert. In no distress Head: Normocephalic atraumatic Eyes: Pupils are equal round and reactive to light Nose: No enlarged turbinates, no septal deviation. Mouth: Moist mucous membranes. Neck: Supple no thyromegaly. No bruit. No JVD Heart: Regular rate and rhythm, S1-S2 normal. No rubs murmurs or gallop Lungs: Clear to auscultation bilaterally. no rales or rhonchi Abdomen: Soft, nontender. Bowel sound are present. Extremities: No edema, no cyanosis, no clubbing. Neuro: alert. Skin: No rashes or hyperpigmented spots Musculoskeletal system: No joint pain or swelling Hematological: No petechia or subcutanous hemorrhages. Immunological: No multiple septic spots on the skin Lymphatic: No generalized lymphadenopathy Psychiatry: Euthymic. Calm. - Constitutional Vitals: Vital Signs - 12hr 09/10/18 09/11/18 09/11/18 22:00 02:00 07:47 Temperature 97.6 F 97.9 F Pulse Rate 63 62 Respiratory 18 18 20 Rate Blood Pressure 173/54 Blood Pressure 142/86 [Right] O2 Sat by Pulse 98 100 100 Oximetry - Labs CBC & Chem 7: 09/10/18 04:53 09/10/18 04:53 Labs: Abnormal lab results 09/10/18 09/10/18 09/10/18 Range/Units 11:20 17:01 21:51 POC Glucose 313 H 287 H 266 H (70-105)
--- NOTE | 2018-09-11 08:50 | Progress Note ---
Subjective Principal diagnosis: pancreatic mass Interval history: Patient was seen today for follow-up on multiple renal related issues Function appears to be improving patient is more alert and awake Vitals labs intake output medications were reviewed Social history: Reviewed Allergies: Reviewed Family history: Reviewed Physical examination HEENT: Oral mucosa moist no pallor or icterus Neck: Supple no JVD Chest: Clear to auscultation anteriorly CVS: Regular rate and rhythm S1 and S2 heard Abdomen: Soft nontender no suprapubic masses no organomegaly appreciable Extremity: Dry skin less than 1+ peripheral edema Musculoskeletal: No joint effusion noted in knees and ankle Neurological: arousable but sleepy Dermatology: No petechial rashes Psychiatry: No evidence of any agitation and aggression noted Assessment and plan Acute kidney injury in a patient who is 88-year-old likely 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 continue to monitor renal function Maintain hydration encephalopathy better Multiple health issues Pancreatic mass to her markers currently pending followed by gastroenterology Would avoid radiocontrast or MRI contrast with renal failure for now prognosis guarded but improving renal function We'll continue to follow and make recommendation from renal standpoint Objective - Vital Signs Vital signs: Vital Signs - 12hr 09/10/18 09/11/18 09/11/18 22:00 02:00 07:47 Temperature 97.6 F 97.9 F Pulse Rate 63 62 Respiratory 18 18 20 Rate Blood Pressure 173/54 Blood Pressure 142/86 [Right] O2 Sat by Pulse 98 100 100 Oximetry - Lab 09/10/18 04:53 09/10/18 04:53 Most recent lab results Calcium 7.7 mg/dL (8.4-10.2) L 09/10/18 04:53 Phosphorus 4.00 mg/dL (2.5-4.5) 09/08/18 04:48 Magnesium 1.70 mg/dL (1.7-2.3) 09/08/18 04:48 Urine Creatinine 417.7 mg/dL (0.1-20.0) H 09/06/18 16:20 Urine Sodium 10 mmol/L 09/06/18 16:20 Medications & Allergies - Medications Allergies/Adverse Reactions: Allergies No Known Allergies Allergy (Unverified 07/13/16 09:05) Home Medications: Home Medications Medication Instructions Recorded Confirmed Last Taken Type Donepezil HCl [Donepezil HCl Odt] 10 mg PO QHS 07/13/16 09/04/18 Unknown History Folic Acid [Folvite] 1 mg PO DAILY 07/13/16 09/04/18 Unknown History Losartan [Cozaar] 100 mg PO DAILY 07/13/16 09/04/18 Unknown History hydroCHLOROthiazide [HCTZ] 25 mg PO DAILY 07/13/16 09/04/18 Unknown History risperiDONE [RisperiDONE] 1 mg PO QHS 07/13/16 09/04/18 Unknown History Clopidogrel [Plavix] 75 mg PO DAILY 08/11/17 09/04/18 Unknown History Mirabegron [Myrbetriq] 25 mg PO DAILY 08/11/17 09/04/18 Unknown History Sitagliptin Phosphate [Januvia] 100 mg PO DAILY 08/11/17 09/04/18 Unknown History Glimepiride [Amaryl] 1 mg PO QAM 09/04/18 09/04/18 Unknown History Insulin Glargine,Hum.rec.anlog 15 unit SQ QHS 09/04/18 09/04/18 Unknown History [Basaglar Kwikpen U-100] Insulin Glargine,Hum.rec.anlog 15 units SQ QHS 09/04/18 09/04/18 Unknown History [Lantus] Lovastatin [Altoprev] 10 mg PO DAILY 09/04/18 09/04/18 Unknown History NIFEdipine [Nifedipine ER] 90 mg PO DAILY 09/04/18 09/04/18 Unknown History Active Medications: Generic Name Dose Route Start Last Admin Trade Name Freq PRN Reason Stop Dose Admin Acetaminophen/Hydrocodone Bitart 1 each 09/04/18 20:49 09/04/18 22:56 [place] 5/325 PO 1 each Q8H PRN Administration Pain, Moderate (4-6) Clopidogrel Bisulfate 75 mg 09/05/18 10:00 09/10/18 10:00 Plavix PO Not Given DAILY PRISCA Dextrose 50 ml 09/05/18 10:01 D50w (25gm) Syringe IV PRN PRN Hypoglycemia Donepezil HCl 10 mg 09/04/18 22:00 09/10/18 22:20 Aricept PO 10 mg QHS PRISCA Administration Enoxaparin Sodium 30 mg 09/04/18 22:00 09/10/18 22:12 Lovenox SUB-Q 30 mg QDAY@2200 PRISCA Administration Folic Acid 1 mg 09/04/18 21:00 09/10/18 10:00 Folvite PO Not Given DAILY PRISCA Sodium Bicarbonate 150 meq/ 1,150 mls @ 70 mls/hr 09/07/18 10:00 09/07/18 10:31 Sterile Water IV 70 mls/hr DIRECT PRISCA Administration Dextrose/Sodium Chloride 1,000 mls @ 125 mls/hr 09/09/18 09:00 09/11/18 07:52 D5/0.45ns IV 125 mls/hr DIRECT PRISCA Administration Insulin Human Lispro 0 unit 09/05/18 22:00 09/10/18 22:13 Humalog SUB-Q 3 unit ACHS PRISCA Administration Protocol Metronidazole 500 mg 09/06/18 15:00 09/11/18 05:53 Flagyl PO 500 mg Q8HR PRISCA Administration Protocol Pravastatin Sodium 10 mg 09/04/18 22:00 09/10/18 22:12 Pravachol PO 10 mg QHS PRISCA Administration Risperidone 1 mg 09/04/18 22:00 09/10/18 22:20 Risperdal PO 1 mg QHS PRISCA Administration
[2018-09-11] MEDS: FOLVITE PO SCH (09:21)
[2018-09-11] MEDS: PLAVIX PO SCH (09:21)
--- NOTE | 2018-09-11 18:30 | Hem/Onc Progress Note ---
Assessment and Plan 1. Breast mass. As per the information available, she has had a biopsy done at [place] 3 years ago, but now Radiology shows increase in tumor, this may be a neoplastic process; however, biopsy would be needed. The patient's performance status is not very good. We will discuss with family members to see how much investigation needs to be done. 2. Pancreatic mass, body/tail, it is 7.7 cm. Gastrointestinal team has seen the patient. CA 19-9 has been ordered. 3. Dementia. 4. Diabetes. 5. Hypertension. 6. Hyperlipidemia. 7. The patient had hypoglycemia. 8. Renal impairment. 9. Mild thrombocytopenia. family discussion will guide - pts performance status not good - Patient Problems (1) Breast CA Current Visit: Yes Status: Acute Subjective Date of service: 09/11/18 Principal diagnosis: breast and pancreatic lesions Interval history: sitting - being fed Objective - Exam Narrative Exam: minimally communicative - Constitutional Vitals: Last Vital Signs Temp 97.9 F 09/11/18 07:47 Pulse 62 09/11/18 07:47 Resp 20 09/11/18 07:47 BP 173/54 09/11/18 07:47 Pulse Ox 100 09/11/18 07:47 Pain Intensity (0-10): denies any pain General appearance: no acute distress Performance status: 3-limited selfcare (needs help feeding) - EENT Eyes: EOM intact Lymph node exam: negative cervical, negative supraclavicular - Neck Neck: normal ROM - Respiratory Respiratory effort: Positive: normal Respiratory: bilateral: diminished - Breasts Breasts: right: swelling (RN present - ~2cm lesion) - Cardiovascular Heart Sounds: Present: S1 & S2 Extremities: No edema - Gastrointestinal General gastrointestinal: Present: soft, non-tender Rectal Exam: deferred - Genitourinary Female genitourinary: Present: deferred - Integumentary Integumentary: warm - Musculoskeletal Musculoskeletal: generalized weakness - Neurologic Neurologic: moves all extremities - Labs Lab Results: Laboratory Results - last 24 hr 09/08/18 09/10/18 09/11/18 19:18 21:51 07:09 POC Glucose 266 H 335 H CA 19-9 Antigen 183 H 09/11/18 09/11/18 12:58 16:29 POC Glucose 392 H 391 H CA 19-9 Antigen Medications & Allergies - Medications Allergies/Adverse Reactions: Allergies No Known Allergies Allergy (Unverified 07/13/16 09:05) Home Medications: Home Medications Medication Instructions Recorded Confirmed Last Taken Type RX: Donepezil HCl [Donepezil HCl 10 mg PO QHS 07/13/16 09/04/18 Unknown History Odt] RX: Folic Acid [Folvite] 1 mg PO DAILY 07/13/16 09/04/18 Unknown History RX: Losartan [Cozaar] 100 mg PO DAILY 07/13/16 09/04/18 Unknown History RX: hydroCHLOROthiazide [HCTZ] 25 mg PO DAILY 07/13/16 09/04/18 Unknown History RX: risperiDONE [RisperiDONE] 1 mg PO QHS 07/13/16 09/04/18 Unknown History RX: Clopidogrel [Plavix] 75 mg PO DAILY 08/11/17 09/04/18 Unknown History RX: Mirabegron [Myrbetriq] 25 mg PO DAILY 08/11/17 09/04/18 Unknown History RX: Sitagliptin Phosphate [Januvia] 100 mg PO DAILY 08/11/17 09/04/18 Unknown History Glimepiride [Amaryl] 1 mg PO QAM 09/04/18 09/04/18 Unknown History Insulin Glargine,Hum.rec.anlog 15 unit SQ QHS 09/04/18 09/04/18 Unknown History [Basaglar Kwikpen U-100] Insulin Glargine,Hum.rec.anlog 15 units SQ QHS 09/04/18 09/04/18 Unknown History [Lantus] Lovastatin [Altoprev] 10 mg PO DAILY 09/04/18 09/04/18 Unknown History NIFEdipine [Nifedipine ER] 90 mg PO DAILY 09/04/18 09/04/18 Unknown History Active Medications: Generic Name Dose Route Start Last Admin Trade Name Freq PRN Reason Stop Dose Admin Acetaminophen/Hydrocodone Bitart 1 each 09/04/18 20:49 09/04/18 22:56 [place] 5/325 PO 1 each Q8H PRN Administration Pain, Moderate (4-6) Clopidogrel Bisulfate 75 mg 09/05/18 10:00 09/11/18 09:21 Plavix PO 75 mg DAILY PRISCA Administration Dextrose 50 ml 09/05/18 10:01 D50w (25gm) Syringe IV PRN PRN Hypoglycemia Donepezil HCl 10 mg 09/04/18 22:00 09/10/18 22:20 Aricept PO 10 mg QHS PRISCA Administration Enoxaparin Sodium 30 mg 09/04/18 22:00 09/10/18 22:12 Lovenox SUB-Q 30 mg QDAY@2200 PRISCA Administration Folic Acid 1 mg 09/04/18 21:00 09/11/18 09:21 Folvite PO 1 mg DAILY PRISCA Administration Sodium Bicarbonate 150 meq/ 1,150 mls @ 70 mls/hr 09/07/18 10:00 09/07/18 10:31 Sterile Water IV 70 mls/hr DIRECT PRISCA Administration Dextrose/Sodium Chloride 1,000 mls @ 125 mls/hr 09/09/18 09:00 09/11/18 09:25 D5/0.45ns IV 125 mls/hr DIRECT PRISCA Administration Insulin Human Lispro 0 unit 09/05/18 22:00 09/11/18 11:30 Humalog SUB-Q 5 unit ACHS PRISCA Administration Protocol Metronidazole 500 mg 09/06/18 15:00 09/11/18 12:59 Flagyl PO 500 mg Q8HR PRISCA Administration Protocol Pravastatin Sodium 10 mg 09/04/18 22:00 09/10/18 22:12 Pravachol PO 10 mg QHS PRISAC Administration Risperidone 1 mg 09/04/18 22:00 09/10/18 22:20 Risperdal PO 1 mg QHS PRISCA Administration
[2018-09-11] MEDS: PRAVACHOL PO SCH (21:41)
[2018-09-11] MEDS: RisperDAL PO SCH (21:41)
[2018-09-11] MEDS: ARICEPT PO SCH (21:41)
[2018-09-11] MEDS: LOVENOX SUB-Q SCH (21:42)
[2018-09-12] MEDS: D5/0.45NS 1,000 ML IV SCH (03:06)
[2018-09-12] MEDS: FLAGYL PO SCH ×3 (05:53→21:57)
[2018-09-12 06:18] LABS: Hematocrit 24.3 % (30.3-42.9); Hemoglobin 7.8 gm/dl (10.1-14.3); Mean Corpuscular HGB Conc 32 % (30-34); Mean Corpuscular Volume 82 fl (79-97); Platelet Count 142 K/mm3 (140-440); Red Blood Count 2.97 M/mm3 (3.65-5.03); Red Cell Distribution Width 14.5 % (13.2-15.2)
[2018-09-12 06:44] LABS: Albumin 1.8 g/dL (3.9-5); Calcium 7.2 mg/dL (8.4-10.2)
[2018-09-12 06:54] LABS: Anisocytosis 1+; Band Neutrophils # (Manual) 0.5 K/mm3; Basophils % (Manual) 0 % (0.0-1.8); Ovalocytes 2+; Poikilocytosis 1+; Target Cells Rare; Tear Drop Cells Rare; Total Cells Counted 100
[2018-09-12 06:55] LABS: Helmet Cells Rare; Hypochromasia 1+
--- NOTE | 2018-09-12 07:21 | Hem/Onc Progress Note ---
Assessment and Plan 1. Breast mass. As per the information available, she has had a biopsy done at [facility] 3 years ago, but now Radiology shows increase in tumor, this may be a neoplastic process; however, biopsy would be needed. The patient's performance status is not very good. We will discuss with family members to see how much investigation needs to be done. 2. Pancreatic mass, body/tail, it is 7.7 cm. Gastrointestinal team has seen the patient. CA 19-9 has been ordered. 3. Dementia. 4. Diabetes. 5. Hypertension. 6. Hyperlipidemia. 7. The patient had hypoglycemia. 8. Renal impairment. 9. Mild thrombocytopenia. family discussion will guide - pts performance status not good rt breast mass ~ 2cm family coming on friday - as per RN IV iron - for anemia - Patient Problems (1) Breast CA Current Visit: Yes Status: Acute Subjective Date of service: 09/12/18 Principal diagnosis: breast and pancreas mass Interval history: pt non communicative Objective - Exam Narrative Exam: lying in bed - no acute distress no family - Constitutional Vitals: Last Vital Signs Temp 98.6 F 09/12/18 02:57 Pulse 66 09/12/18 02:57 Resp 20 09/12/18 02:57 BP 159/47 09/12/18 02:57 Pulse Ox 100 09/12/18 02:57 General appearance: no acute distress Performance status: 4-completely disabled - EENT Lymph node exam: negative cervical, negative supraclavicular - Respiratory Respiratory effort: Positive: normal Respiratory: bilateral: diminished - Cardiovascular Heart Sounds: Present: S1 & S2 Extremity abnormal: edema - Gastrointestinal General gastrointestinal: Present: soft Rectal Exam: deferred - Genitourinary Female genitourinary: Present: deferred - Integumentary Integumentary: warm - Labs Lab Results: Laboratory Results - last 24 hr 09/08/18 09/11/18 09/11/18 19:18 07:09 12:58 WBC RBC Hgb Hct MCV MCH MCHC RDW Plt Count Add Manual Diff Total Counted Seg Neuts % (Manual) Band Neutrophils % Lymphocytes % (Manual) Reactive Lymphs % (Man) Monocytes % (Manual) Eosinophils % (Manual) Basophils % (Manual) Metamyelocytes % Myelocytes % Promyelocytes % Blast Cells % Nucleated RBC % Seg Neutrophils # Man Band Neutrophils # Lymphocytes # (Manual) Abs React Lymphs (Man) Monocytes # (Manual) Eosinophils # (Manual) Basophils # (Manual) Metamyelocytes # Myelocytes # Promyelocytes # Blast Cells # WBC Morphology Hypersegmented Neuts Hyposegmented Neuts Hypogranular Neuts Smudge Cells Toxic Granulation Toxic Vacuolation Dohle Bodies Pelger-Huet Anomaly [place] Rods Platelet Estimate Clumped Platelets Plt Clumps, EDTA Large Platelets Giant Platelets Platelet Satelliting Plt Morphology Comment RBC Morphology Dimorphic RBCs Polychromasia Hypochromasia Poikilocytosis Anisocytosis Microcytosis Macrocytosis Spherocytes Pappenheimer Bodies Sickle Cells Target Cells Tear Drop Cells Ovalocytes Helmet Cells [place] Bodies [place] Rings Donny Cells Bite Cells Crenated Cell Elliptocytes Acanthocytes (Spur) Rouleaux Hemoglobin C Crystals Schistocytes Malaria parasites Paul Bodies Hem Pathologist Commnt Sodium Potassium Chloride Carbon Dioxide Anion Gap BUN Creatinine Estimated GFR BUN/Creatinine Ratio Glucose POC Glucose 335 H 392 H Calcium Magnesium Total Bilirubin AST ALT Alkaline Phosphatase Total Protein Albumin Albumin/Globulin Ratio CA 19-9 Antigen 183 H 09/11/18 09/11/18 09/12/18 16:29 22:05 04:50 WBC 13.4 H RBC 2.97 L Hgb 7.8 L Hct 24.3 L MCV 82 MCH 26 L MCHC 32 RDW 14.5 Plt Count 142 Add Manual Diff Complete Total Counted 100 Seg Neuts % (Manual) 88.0 H Band Neutrophils % 4.0 Lymphocytes % (Manual) 4.0 L Reactive Lymphs % (Man) 0 Monocytes % (Manual) 1.0 Eosinophils % (Manual) 2.0 Basophils % (Manual) 0 Metamyelocytes % 1.0 Myelocytes % 0 Promyelocytes % 0 Blast Cells % 0 Nucleated RBC % Not Reportable Seg Neutrophils # Man 11.8 H Band Neutrophils # 0.5 Lymphocytes # (Manual) 0.5 L Abs React Lymphs (Man) 0.0 Monocytes # (Manual) 0.1 Eosinophils # (Manual) 0.3 Basophils # (Manual) 0.0 Metamyelocytes # 0.1 Myelocytes # 0.0 Promyelocytes # 0.0 Blast Cells # 0.0 WBC Morphology Not Reportable Hypersegmented Neuts Not Reportable Hyposegmented Neuts Not Reportable Hypogranular Neuts Not Reportable Smudge Cells Not Reportable Toxic Granulation Not Reportable Toxic Vacuolation Not Reportable Dohle Bodies Not Reportable Pelger-Huet Anomaly Not Reportable [place] Rods Not Reportable Platelet Estimate Appears normal Clumped Platelets Not Reportable Plt Clumps, EDTA Not Reportable Large Platelets Not Reportable Giant Platelets Not Reportable Platelet Satelliting Not Reportable Plt Morphology Comment Not Reportable RBC Morphology Not Reportable Dimorphic RBCs Not Reportable Polychromasia Few Hypochromasia 1+ Poikilocytosis 1+ Anisocytosis 1+ Microcytosis Not Reportable Macrocytosis Not Reportable Spherocytes Not Reportable Pappenheimer Bodies Not Reportable Sickle Cells Not Reportable Target Cells Rare Tear Drop Cells Rare Ovalocytes 2+ Helmet Cells Rare [place] Bodies Not Reportable [place] Rings Not Reportable Donny Cells Not Reportable Bite Cells Not Reportable Crenated Cell Not Reportable Elliptocytes 1+ Acanthocytes (Spur) Rare Rouleaux Not Reportable Hemoglobin C Crystals Not Reportable Schistocytes Not Reportable Malaria parasites Not Reportable Paul Bodies Not Reportable Hem Pathologist Commnt No Sodium Potassium Chloride Carbon Dioxide Anion Gap BUN Creatinine Estimated GFR BUN/Creatinine Ratio Glucose POC Glucose 391 H 345 H Calcium Magnesium Total Bilirubin AST ALT Alkaline Phosphatase Total Protein Albumin Albumin/Globulin Ratio CA 19-9 Antigen 09/12/18 04:50 WBC RBC Hgb Hct MCV MCH MCHC RDW Plt Count Add Manual Diff Total Counted Seg Neuts % (Manual) Band Neutrophils % Lymphocytes % (Manual) Reactive Lymphs % (Man) Monocytes % (Manual) Eosinophils % (Manual) Basophils % (Manual) Metamyelocytes % Myelocytes % Promyelocytes % Blast Cells % Nucleated RBC % Seg Neutrophils # Man Band Neutrophils # Lymphocytes # (Manual) Abs React Lymphs (Man) Monocytes # (Manual) Eosinophils # (Manual) Basophils # (Manual) Metamyelocytes # Myelocytes # Promyelocytes # Blast Cells # WBC Morphology Hypersegmented Neuts Hyposegmented Neuts Hypogranular Neuts Smudge Cells Toxic Granulation Toxic Vacuolation Dohle Bodies Pelger-Huet Anomaly [place] Rods Platelet Estimate Clumped Platelets Plt Clumps, EDTA Large Platelets Giant Platelets Platelet Satelliting Plt Morphology Comment RBC Morphology Dimorphic RBCs Polychromasia Hypochromasia Poikilocytosis Anisocytosis Microcytosis Macrocytosis Spherocytes Pappenheimer Bodies Sickle Cells Target Cells Tear Drop Cells Ovalocytes Helmet Cells [place] Bodies [place] Rings Donny Cells Bite Cells Crenated Cell Elliptocytes Acanthocytes (Spur) Rouleaux Hemoglobin C Crystals Schistocytes Malaria parasites Paul Bodies Hem Pathologist Commnt Sodium 136 L Potassium 3.8 Chloride 104.1 Carbon Dioxide 21 L Anion Gap 15 BUN 48 H Creatinine 1.3 H Estimated GFR 47 BUN/Creatinine Ratio 37 Glucose 263 H POC Glucose Calcium 7.2 L Magnesium 1.30 L Total Bilirubin 0.30 AST 11 ALT 12 Alkaline Phosphatase 65 Total Protein 4.1 L Albumin 1.8 L Albumin/Globulin Ratio 0.8 CA 19-9 Antigen Medications & Allergies - Medications Allergies/Adverse Reactions: Allergies No Known Allergies Allergy (Unverified 07/13/16 09:05) Home Medications: Home Medications Medication Instructions Recorded Confirmed Last Taken Type Donepezil HCl [Donepezil HCl Odt] 10 mg PO QHS 07/13/16 09/04/18 Unknown History Folic Acid [Folvite] 1 mg PO DAILY 07/13/16 09/04/18 Unknown History Losartan [Cozaar] 100 mg PO DAILY 07/13/16 09/04/18 Unknown History hydroCHLOROthiazide [HCTZ] 25 mg PO DAILY 07/13/16 09/04/18 Unknown History risperiDONE [RisperiDONE] 1 mg PO QHS 07/13/16 09/04/18 Unknown History Clopidogrel [Plavix] 75 mg PO DAILY 08/11/17 09/04/18 Unknown History Mirabegron [Myrbetriq] 25 mg PO DAILY 08/11/17 09/04/18 Unknown History Sitagliptin Phosphate [Januvia] 100 mg PO DAILY 08/11/17 09/04/18 Unknown History Glimepiride [Amaryl] 1 mg PO QAM 09/04/18 09/04/18 Unknown History Insulin Glargine,Hum.rec.anlog 15 unit SQ QHS 09/04/18 09/04/18 Unknown History [Basaglar Kwikpen U-100] Insulin Glargine,Hum.rec.anlog 15 units SQ QHS 09/04/18 09/04/18 Unknown History [Lantus] Lovastatin [Altoprev] 10 mg PO DAILY 09/04/18 09/04/18 Unknown History NIFEdipine [Nifedipine ER] 90 mg PO DAILY 09/04/18 09/04/18 Unknown History Active Medications: Generic Name Dose Route Start Last Admin Trade Name Freq PRN Reason Stop Dose Admin Acetaminophen/Hydrocodone Bitart 1 each 09/04/18 20:49 09/04/18 22:56 [place] 5/325 PO 1 each Q8H PRN Administration Pain, Moderate (4-6) Clopidogrel Bisulfate 75 mg 09/05/18 10:00 09/11/18 09:21 Plavix PO 75 mg DAILY PRISCA Administration Dextrose 50 ml 09/05/18 10:01 D50w (25gm) Syringe IV PRN PRN Hypoglycemia Donepezil HCl 10 mg 09/04/18 22:00 09/11/18 21:41 Aricept PO 10 mg QHS PRISCA Administration Enoxaparin Sodium 30 mg 09/04/18 22:00 09/11/18 21:42 Lovenox SUB-Q 30 mg QDAY@2200 PRISCA Administration Folic Acid 1 mg 09/04/18 21:00 09/11/18 09:21 Folvite PO 1 mg DAILY PRISCA Administration Sodium Bicarbonate 150 meq/ 1,150 mls @ 70 mls/hr 09/07/18 10:00 09/07/18 10:31 Sterile Water IV 70 mls/hr DIRECT PRISCA Administration Dextrose/Sodium Chloride 1,000 mls @ 125 mls/hr 09/09/18 09:00 09/12/18 03:06 D5/0.45ns IV 125 mls/hr DIRECT PRISCA Administration Ferric Sodium Gluconate 110 mls @ 100 mls/hr 09/12/18 08:00 Complex 125 mg/ Sodium IV 09/12/18 09:05 Chloride ONCE ONE Insulin Human Lispro 0 unit 09/05/18 22:00 09/11/18 22:55 Humalog SUB-Q 4 unit ACHS PRISCA Administration Protocol Metronidazole 500 mg 09/06/18 15:00 09/12/18 05:53 Flagyl PO 500 mg Q8HR PRISCA Administration Protocol Pravastatin Sodium 10 mg 09/04/18 22:00 09/11/18 21:41 Pravachol PO 10 mg QHS PRISCA Administration Risperidone 1 mg 09/04/18 22:00 09/11/18 21:41 Risperdal PO 1 mg QHS PRISCA Administration
[2018-09-12] MEDS ORDERED: FERRLECIT 125 MG in NACL 0.9% 100 ML IV ONE (08:00)
--- NOTE | 2018-09-12 08:22 | Progress Note ---
Assessment and Plan Patient is an 88-year-old lady who is well-known to me who currently resides in the past not to history of diabetes mellitus, right breast mass, pancreatic mass, dementia, hypertension, CVA, chronic kidney disease was found to be less arousable at the past not Home with a blood sugar reading of 25. She was given something to eat. EMS was called. Blood sugar improved to 60. Patient was transported to the emergency department. BUN was found to be 64 and creatinine was 2.3. As of July 2017 creatinine was 1.9. WBC was found to be 17.4. Patient was still confused. This was a portable requested. Patient is a poor historian and therefore unable to obtain any reliable history. She is unsure why she was in the hospital. She has become progressively lethargic since after admission as she has not been eating or drinking. Blood sugar has improved to normal. Kidney function worsened but improving with hydration. Nando anemiac. -Acute metabolic encephalopathy Multi factorial IV hydration. Correct other underlying factors - Acute on chronic renal failure - improving from ATN. Nephrology following. Input appreciated - Pneumonai left lobe Blood cx negative so far CXR showed left lobar infiltrate. will obtain a follow up CXR Leukocytosis improving Continue with Azithromycin and Rocephine - Anemia of chronic disease s/p blood transfusion. Stable Iron def and TIBC are all consistent with Anemia of chronic disease - Moderate to Severe Malnutrition Dietary consult - Dehydration - improving iv hydration Commence cautious iv hydration - T2DM SSI Consistent Carbohydrate diet - h/o Right breast mass Lethergic for biopsy for now Will obtain Ultrasound guided bx when more alert. Family want everything done Oncology consulted. Input appreciated Low functional status documented making aggressive tx imprudent - H/o Pancreatic mass Per CT abdomen and pelvis Called and discussed with pt's Niece, Ms Inez Michele, at [phone] who wanted every thing to be done including biopsy of breast mass and pancreatic mass. Get record from [facility] if someone who will sign the consent is available. She had a biopsy of same breast mass 3 yrs ago GI input appreciated. Fro MRI when pt is more stable - DVT PPx with lovenox Aspiration precaution Niece still wanted pt to be transferred to [facility] because it is closer to her. She was devised that [facility] may not accept her on that ground. Still wants to try with her contacts over there. Called her today but no response. No voice mail came up either. - Subjective Date of service: 09/12/18 Principal diagnosis: breast and pancreas mass Interval history: Sitting lying quietly in bed. Objective - Exam Narrative Exam: Constitutional: Alert. In no distress Head: Normocephalic atraumatic Eyes: Pupils are equal round and reactive to light Nose: No enlarged turbinates, no septal deviation. Mouth: Moist mucous membranes. Neck: Supple no thyromegaly. No bruit. No JVD Heart: Regular rate and rhythm, S1-S2 normal. No rubs murmurs or gallop Lungs: Clear to auscultation bilaterally. no rales or rhonchi Abdomen: Soft, nontender. Bowel sound are present. Extremities: No edema, no cyanosis, no clubbing. Neuro: alert. Skin: No rashes or hyperpigmented spots Musculoskeletal system: No joint pain or swelling Hematological: No petechia or subcutanous hemorrhages. Immunological: No multiple septic spots on the skin Lymphatic: No generalized lymphadenopathy Psychiatry: Euthymic. Calm. - Constitutional Vitals: Vital Signs - 12hr 09/11/18 09/11/18 09/12/18 20:23 22:00 02:57 Temperature 98.7 F 98.6 F Pulse Rate 75 66 Pulse Rate [ 76 Apical] Respiratory 20 18 20 Rate Respiratory 18 Rate [Right Hip ] Blood Pressure 183/70 159/47 O2 Sat by Pulse 100 100 100 Oximetry 09/12/18 09/12/18 07:42 08:03 Temperature 98.4 F Pulse Rate 66 Pulse Rate [ Apical] Respiratory 20 Rate Respiratory Rate [Right Hip ] Blood Pressure 169/56 O2 Sat by Pulse 99 Oximetry - Labs CBC & Chem 7: 09/12/18 04:50 09/12/18 04:50 Labs: Abnormal lab results 09/08/18 09/11/18 09/11/18 Range/Units 19:18 07:09 12:58 WBC (4.5-11.0) K/mm3 RBC (3.65-5.03) M/mm3 Hgb (10.1-14.3) gm/dl Hct (30.3-42.9) % MCH (28-32) pg Seg Neuts % (Manual) (40.0-70.0) % Lymphocytes % (Manual) (13.4-35.0) % Seg Neutrophils # Man (1.8-7.7) K/mm3 Lymphocytes # (Manual) (1.2-5.4) K/mm3 Sodium (137-145) mmol/L Carbon Dioxide (22-30) mmol/L BUN (7-17) mg/dL Creatinine (0.7-1.2) mg/dL Glucose (65-100) mg/dL POC Glucose 335 H 392 H (70-105) Calcium (8.4-10.2) mg/dL Magnesium (1.7-2.3) mg/dL Total Protein (6.3-8.2) g/dL Albumin (3.9-5) g/dL CA 19-9 Antigen 183 H (<34) U/mL 09/11/18 09/11/18 09/12/18 Range/Units 16:29 22:05 04:50 WBC 13.4 H (4.5-11.0) K/mm3 RBC 2.97 L (3.65-5.03) M/mm3 Hgb 7.8 L (10.1-14.3) gm/dl Hct 24.3 L (30.3-42.9) % MCH 26 L (28-32) pg Seg Neuts % (Manual) 88.0 H (40.0-70.0) % Lymphocytes % (Manual) 4.0 L (13.4-35.0) % Seg Neutrophils # Man 11.8 H (1.8-7.7) K/mm3 Lymphocytes # (Manual) 0.5 L (1.2-5.4) K/mm3 Sodium (137-145) mmol/L Carbon Dioxide (22-30) mmol/L BUN (7-17) mg/dL Creatinine (0.7-1.2) mg/dL Glucose (65-100) mg/dL POC Glucose 391 H 345 H (70-105) Calcium (8.4-10.2) mg/dL Magnesium (1.7-2.3) mg/dL Total Protein (6.3-8.2) g/dL Albumin (3.9-5) g/dL CA 19-9 Antigen (<34) U/mL 09/12/18 09/12/18 Range/Units 04:50 07:42 WBC (4.5-11.0) K/mm3 RBC (3.65-5.03) M/mm3 Hgb (10.1-14.3) gm/dl Hct (30.3-42.9) % MCH (28-32) pg Seg Neuts % (Manual) (40.0-70.0) % Lymphocytes % (Manual) (13.4-35.0) % Seg Neutrophils # Man (1.8-7.7) K/mm3 Lymphocytes # (Manual) (1.2-5.4) K/mm3 Sodium 136 L (137-145) mmol/L Carbon Dioxide 21 L (22-30) mmol/L BUN 48 H (7-17) mg/dL Creatinine 1.3 H (0.7-1.2) mg/dL Glucose 263 H (65-100) mg/dL POC Glucose 312 H (70-105) Calcium 7.2 L (8.4-10.2) mg/dL Magnesium 1.30 L (1.7-2.3) mg/dL Total Protein 4.1 L (6.3-8.2) g/dL Albumin 1.8 L (3.9-5) g/dL CA 19-9 Antigen (<34) U/mL
[2018-09-12] MEDS: HumaLOG SUB-Q SCH ×4 (08:57→21:58)
[2018-09-12] MEDS: PLAVIX PO SCH (11:28)
[2018-09-12] MEDS: FOLVITE PO SCH (11:29)
--- NOTE | 2018-09-12 14:52 | Progress Note ---
Assessment and Plan Impression: * Acute kidney injury secondary to prerenal azotemia * Breast mass * Cystic mass of pancreas * PNA * Metabolic acidosis * Anemia * Hypertension * Type II DM Plan: * Renal function improved - SCr 1.3mg/dL today * Continue IVF - will stop bicarb gtt and start NS * Per IM note, "continue Azithromycin and Rocephin". Patient only received 1 dose of Rocephin - Sep 04. Does not appear to have received Azithromycin. Currently receiving Flagyl empirically for Cdiff; Cdiff negative. Abx per primary team * Surgery and GI recommendations noted * Transfuse pRBC per primary team * Replete Mg * Avoid nephrotoxins * Dose medications for renal function Subjective Date of service: 09/12/18 Principal diagnosis: breast and pancreas mass Interval history: No acute events overnight. Objective - Vital Signs Vital signs: Vital Signs - 12hr 09/12/18 09/12/18 09/12/18 02:57 07:42 08:03 Temperature 98.6 F 98.4 F Pulse Rate 66 66 Respiratory 20 20 Rate Blood Pressure 159/47 169/56 O2 Sat by Pulse 100 99 Oximetry 09/12/18 09/12/18 13:35 14:39 Temperature 97.8 F Pulse Rate 68 Respiratory 20 Rate Blood Pressure 131/100 O2 Sat by Pulse 100 Oximetry - General Appearance General appearance: well-developed, well-nourished EENT: ATNC Respiratory: Present: Decreased Breath Sounds Cardiology: regular, S1S2 Gastrointestinal: normal, no tenderness, no distended Integumentary: no rash, warm and dry Musculoskeletal: other (no edema) Psychiatric: cooperative - Lab 09/12/18 04:50 09/12/18 04:50 Most recent lab results Calcium 7.2 mg/dL (8.4-10.2) L 09/12/18 04:50 Phosphorus 4.00 mg/dL (2.5-4.5) 09/08/18 04:48 Magnesium 1.30 mg/dL (1.7-2.3) L 09/12/18 04:50 Urine Creatinine 417.7 mg/dL (0.1-20.0) H 09/06/18 16:20 Urine Sodium 10 mmol/L 09/06/18 16:20 Medications & Allergies - Medications Allergies/Adverse Reactions: Allergies No Known Allergies Allergy (Unverified 07/13/16 09:05) Home Medications: Home Medications Medication Instructions Recorded Confirmed Last Taken Type Donepezil HCl [Donepezil HCl Odt] 10 mg PO QHS 07/13/16 09/04/18 Unknown History Folic Acid [Folvite] 1 mg PO DAILY 07/13/16 09/04/18 Unknown History Losartan [Cozaar] 100 mg PO DAILY 07/13/16 09/04/18 Unknown History hydroCHLOROthiazide [HCTZ] 25 mg PO DAILY 07/13/16 09/04/18 Unknown History risperiDONE [RisperiDONE] 1 mg PO QHS 07/13/16 09/04/18 Unknown History Clopidogrel [Plavix] 75 mg PO DAILY 08/11/17 09/04/18 Unknown History Mirabegron [Myrbetriq] 25 mg PO DAILY 08/11/17 09/04/18 Unknown History Sitagliptin Phosphate [Januvia] 100 mg PO DAILY 08/11/17 09/04/18 Unknown History Glimepiride [Amaryl] 1 mg PO QAM 09/04/18 09/04/18 Unknown History Insulin Glargine,Hum.rec.anlog 15 unit SQ QHS 09/04/18 09/04/18 Unknown History [Basaglar Kwikpen U-100] Insulin Glargine,Hum.rec.anlog 15 units SQ QHS 09/04/18 09/04/18 Unknown History [Lantus] Lovastatin [Altoprev] 10 mg PO DAILY 09/04/18 09/04/18 Unknown History NIFEdipine [Nifedipine ER] 90 mg PO DAILY 09/04/18 09/04/18 Unknown History Active Medications: Generic Name Dose Route Start Last Admin Trade Name Freq PRN Reason Stop Dose Admin Acetaminophen/Hydrocodone Bitart 1 each 09/04/18 20:49 09/04/18 22:56 [place] 5/325 PO 1 each Q8H PRN Administration Pain, Moderate (4-6) Clopidogrel Bisulfate 75 mg 09/05/18 10:00 09/12/18 11:28 Plavix PO 75 mg DAILY PRISCA Administration Dextrose 50 ml 09/05/18 10:01 D50w (25gm) Syringe IV PRN PRN Hypoglycemia Donepezil HCl 10 mg 09/04/18 22:00 09/11/18 21:41 Aricept PO 10 mg QHS PRISCA Administration Enoxaparin Sodium 30 mg 09/04/18 22:00 09/11/18 21:42 Lovenox SUB-Q 30 mg QDAY@2200 PRISCA Administration Folic Acid 1 mg 09/04/18 21:00 09/12/18 11:29 Folvite PO 1 mg DAILY PRISCA Administration Sodium Bicarbonate 150 meq/ 1,150 mls @ 70 mls/hr 09/07/18 10:00 09/07/18 10:31 Sterile Water IV 70 mls/hr DIRECT PRISCA Administration Dextrose/Sodium Chloride 1,000 mls @ 125 mls/hr 09/09/18 09:00 09/12/18 03:06 D5/0.45ns IV 125 mls/hr DIRECT PRISCA Administration Insulin Human Lispro 0 unit 09/05/18 22:00 09/12/18 08:57 Humalog SUB-Q 4 unit ACHS PRISCA Administration Protocol Metronidazole 500 mg 09/06/18 15:00 09/12/18 05:53 Flagyl PO 500 mg Q8HR PRISCA Administration Protocol Pravastatin Sodium 10 mg 09/04/18 22:00 09/11/18 21:41 Pravachol PO 10 mg QHS PRISCA Administration Risperidone 1 mg 09/04/18 22:00 09/11/18 21:41 Risperdal PO 1 mg QHS PRISCA Administration
[2018-09-12] MEDS ORDERED: MAGNESIUM SULFATE 2GM/50ML 2 GM/50 ML BAG IV ONE (19:05)
[2018-09-12] MEDS: NACL 0.9% 1000 ML 1,000 ML IV SCH (21:21)
[2018-09-12] MEDS: ARICEPT PO SCH (21:57)
[2018-09-12] MEDS: SODIUM BICARBONATE PO SCH (21:57)
[2018-09-12] MEDS: LOVENOX SUB-Q SCH (21:58)
[2018-09-12] MEDS: PRAVACHOL PO SCH (22:50)
[2018-09-12] MEDS: RisperDAL PO SCH (22:50)
--- NOTE | 2018-09-13 00:55 | Progress Note ---
Assessment and Plan Patient is an 88-year-old lady who is well-known to me who currently resides in the past not to history of diabetes mellitus, right breast mass, pancreatic mass, dementia, hypertension, CVA, chronic kidney disease was found to be less arousable at the past not Home with a blood sugar reading of 25. She was given something to eat. EMS was called. Blood sugar improved to 60. Patient was transported to the emergency department. BUN was found to be 64 and creatinine was 2.3. As of July 2017 creatinine was 1.9. WBC was found to be 17.4. Patient was still confused. This was a portable requested. Patient is a poor historian and therefore unable to obtain any reliable history. She is unsure why she was in the hospital. She has become progressively lethargic since after admission as she has not been eating or drinking. Blood sugar has improved to normal. Kidney function worsened but improving with hydration. Nando anemiac. -Acute metabolic encephalopathy improving Multi factorial IV hydration. Correct other underlying factors - Acute on chronic renal failure - improving from ATN. Nephrology following. Input appreciated - Pneumonai left lobe Blood cx negative so far CXR showed left lobar infiltrate. will obtain a follow up CXR Leukocytosis improving Continue with Azithromycin and Rocephine - Anemia of chronic disease s/p blood transfusion. Stable Iron def and TIBC are all consistent with Anemia of chronic disease - Moderate to Severe Malnutrition Dietary consult - Dehydration - improving iv hydration Commence cautious iv hydration - T2DM SSI Consistent Carbohydrate diet - h/o Right breast mass Lethergic for biopsy for now Will obtain Ultrasound guided bx when more alert. Family want everything done Oncology consulted. Input appreciated Low functional status documented making aggressive tx imprudent - H/o Pancreatic mass Per CT abdomen and pelvis Called and discussed with pt's Niece, Ms Inez Michele, at [phone] who wanted every thing to be done including biopsy of breast mass and pancreatic mass. Get record from [place] if someone who will sign the consent is available. She had a biopsy of same breast mass 3 yrs ago GI input appreciated. Fro MRI when pt is more stable - DVT PPx with lovenox Aspiration precaution Niece still wanted pt to be transferred to [facility] because it is closer to her. She was devised that [place] may not accept her on that ground. Still wants to try with her contacts over there. Called her today but no response. No voice mail came up either. - Subjective Date of service: 09/13/18 Principal diagnosis: breast and pancreas mass Interval history: Sitting lying quietly in bed. no new complaint Objective - Exam Narrative Exam: Constitutional: Alert.In no distress Head: Normocephalic atraumatic Eyes: Pupils are equal round and reactive to light Nose: No enlarged turbinates, no septal deviation. Mouth: Moist mucous membranes. Neck: Supple no thyromegaly. No bruit. No JVD Heart: Regular rate and rhythm, S1-S2 normal. No rubs murmurs or gallop Lungs: Clear to auscultation bilaterally. no rales or rhonchi Abdomen: Soft, nontender. Bowel sound are present. Extremities: No edema, no cyanosis, no clubbing. Neuro: alert. Skin: No rashes or hyperpigmented spots Musculoskeletal system: No joint pain or swelling Hematological: No petechia or subcutanous hemorrhages. Immunological: No multiple septic spots on the skin Lymphatic: No generalized lymphadenopathy Psychiatry: Euthymic. Calm. - Constitutional Vitals: Vital Signs - 12hr 09/12/18 09/12/18 09/12/18 13:35 14:39 19:27 Temperature 97.8 F 97.8 F Pulse Rate 68 65 Respiratory 20 32 H Rate Blood Pressure 131/100 184/64 O2 Sat by Pulse 100 100 Oximetry 09/12/18 23:30 Temperature 97.4 F L Pulse Rate 64 Respiratory 21 Rate Blood Pressure 167/54 O2 Sat by Pulse 100 Oximetry - Labs CBC & Chem 7: 09/12/18 04:50 09/12/18 04:50 Labs: Abnormal lab results 09/12/18 09/12/18 09/12/18 Range/Units 04:50 04:50 07:42 WBC 13.4 H (4.5-11.0) K/mm3 RBC 2.97 L (3.65-5.03) M/mm3 Hgb 7.8 L (10.1-14.3) gm/dl Hct 24.3 L (30.3-42.9) % MCH 26 L (28-32) pg Seg Neuts % (Manual) 88.0 H (40.0-70.0) % Lymphocytes % (Manual) 4.0 L (13.4-35.0) % Seg Neutrophils # Man 11.8 H (1.8-7.7) K/mm3 Lymphocytes # (Manual) 0.5 L (1.2-5.4) K/mm3 Sodium 136 L (137-145) mmol/L Carbon Dioxide 21 L (22-30) mmol/L BUN 48 H (7-17) mg/dL Creatinine 1.3 H (0.7-1.2) mg/dL Glucose 263 H (65-100) mg/dL POC Glucose 312 H (70-105) Calcium 7.2 L (8.4-10.2) mg/dL Magnesium 1.30 L (1.7-2.3) mg/dL Total Protein 4.1 L (6.3-8.2) g/dL Albumin 1.8 L (3.9-5) g/dL 09/12/18 09/12/18 09/12/18 Range/Units 11:33 16:13 21:42 WBC (4.5-11.0) K/mm3 RBC (3.65-5.03) M/mm3 Hgb (10.1-14.3) gm/dl Hct (30.3-42.9) % MCH (28-32) pg Seg Neuts % (Manual) (40.0-70.0) % Lymphocytes % (Manual) (13.4-35.0) % Seg Neutrophils # Man (1.8-7.7) K/mm3 Lymphocytes # (Manual) (1.2-5.4) K/mm3 Sodium (137-145) mmol/L Carbon Dioxide (22-30) mmol/L BUN (7-17) mg/dL Creatinine (0.7-1.2) mg/dL Glucose (65-100) mg/dL POC Glucose 298 H 231 H 227 H (70-105) Calcium (8.4-10.2) mg/dL Magnesium (1.7-2.3) mg/dL Total Protein (6.3-8.2) g/dL Albumin (3.9-5) g/dL
[2018-09-13] MEDS: FLAGYL PO SCH ×3 (05:21→22:42)
[2018-09-13 06:34] LABS: Hematocrit 24.7 % (30.3-42.9); Hemoglobin 8.1 gm/dl (10.1-14.3); Mean Corpuscular HGB Conc 33 % (30-34); Mean Corpuscular Volume 81 fl (79-97); Platelet Count 169 K/mm3 (140-440); Red Blood Count 3.03 M/mm3 (3.65-5.03); Red Cell Distribution Width 14.9 % (13.2-15.2)
[2018-09-13 06:47] LABS: Basophils # (Auto) 0.1 K/mm3 (0.0-0.1); Eosinophils # (Auto) 0.2 K/mm3 (0.0-0.4); Eosinophils % (Auto) 1.5 % (0.0-4.3); Monocytes # (Auto) 0.8 K/mm3 (0.0-0.8); Monocytes % (Auto) 5.3 % (0.0-7.3)
[2018-09-13 06:55] LABS: Albumin 1.7 g/dL (3.9-5); Calcium 7.6 mg/dL (8.4-10.2)
[2018-09-13] MEDS: HumaLOG SUB-Q SCH ×3 (10:10→22:44)
[2018-09-13] MEDS: PLAVIX PO SCH (10:12)
[2018-09-13] MEDS: FOLVITE PO SCH (10:12)
[2018-09-13] MEDS: SODIUM BICARBONATE PO SCH ×2 (10:13→22:42)
[2018-09-13 10:37] LABS: Anisocytosis 1+; Basophils % (Manual) 0 % (0.0-1.8); Eosinophils % (Manual) 0 % (0.0-4.3); Platelet Estimate Consistent w Auto; Total Cells Counted 100
--- NOTE | 2018-09-13 11:55 | Progress Note ---
Assessment and Plan Impression: * Acute kidney injury secondary to prerenal azotemia * Breast mass * Cystic mass of pancreas * PNA * Metabolic acidosis * Anemia * Hypertension * Type II DM Plan: * Renal function improved - SCr 1.2mg/dL today * Surgery and GI recommendations noted * Transfuse pRBC per primary team * Replete Mg * Avoid nephrotoxins * Dose medications for renal function * Will see prn Subjective Date of service: 09/13/18 Principal diagnosis: breast and pancreas mass Interval history: No acute events overnight. Objective - Vital Signs Vital signs: Vital Signs - 12hr 09/13/18 09/13/18 02:03 07:10 Temperature 97.4 F L 98.0 F Pulse Rate 58 L 63 Respiratory 21 20 Rate Blood Pressure 143/49 146/49 O2 Sat by Pulse 100 100 Oximetry - General Appearance General appearance: well-developed, well-nourished EENT: ATNC Respiratory: Present: Clear to Ascultation Cardiology: regular, S1S2 Gastrointestinal: normal, no tenderness, no distended Integumentary: warm and dry Psychiatric: cooperative - Lab 09/13/18 06:15 09/13/18 06:15 Most recent lab results Calcium 7.6 mg/dL (8.4-10.2) L 09/13/18 06:15 Phosphorus 4.00 mg/dL (2.5-4.5) 09/08/18 04:48 Magnesium 1.30 mg/dL (1.7-2.3) L 09/12/18 04:50 Urine Creatinine 417.7 mg/dL (0.1-20.0) H 09/06/18 16:20 Urine Sodium 10 mmol/L 09/06/18 16:20 Medications & Allergies - Medications Allergies/Adverse Reactions: Allergies No Known Allergies Allergy (Unverified 07/13/16 09:05) Home Medications: Home Medications Medication Instructions Recorded Confirmed Last Taken Type Donepezil HCl [Donepezil HCl Odt] 10 mg PO QHS 07/13/16 09/04/18 Unknown History Folic Acid [Folvite] 1 mg PO DAILY 07/13/16 09/04/18 Unknown History Losartan [Cozaar] 100 mg PO DAILY 07/13/16 09/04/18 Unknown History hydroCHLOROthiazide [HCTZ] 25 mg PO DAILY 07/13/16 09/04/18 Unknown History risperiDONE [RisperiDONE] 1 mg PO QHS 07/13/16 09/04/18 Unknown History Clopidogrel [Plavix] 75 mg PO DAILY 08/11/17 09/04/18 Unknown History Mirabegron [Myrbetriq] 25 mg PO DAILY 08/11/17 09/04/18 Unknown History Sitagliptin Phosphate [Januvia] 100 mg PO DAILY 08/11/17 09/04/18 Unknown History Glimepiride [Amaryl] 1 mg PO QAM 09/04/18 09/04/18 Unknown History Insulin Glargine,Hum.rec.anlog 15 unit SQ QHS 09/04/18 09/04/18 Unknown History [Basaglar Kwikpen U-100] Insulin Glargine,Hum.rec.anlog 15 units SQ QHS 09/04/18 09/04/18 Unknown History [Lantus] Lovastatin [Altoprev] 10 mg PO DAILY 09/04/18 09/04/18 Unknown History NIFEdipine [Nifedipine ER] 90 mg PO DAILY 09/04/18 09/04/18 Unknown History Active Medications: Generic Name Dose Route Start Last Admin Trade Name Freq PRN Reason Stop Dose Admin Acetaminophen/Hydrocodone Bitart 1 each 09/04/18 20:49 09/04/18 22:56 [place] 5/325 PO 1 each Q8H PRN Administration Pain, Moderate (4-6) Clopidogrel Bisulfate 75 mg 09/05/18 10:00 09/13/18 10:12 Plavix PO 75 mg DAILY PRISCA Administration Dextrose 50 ml 09/05/18 10:01 D50w (25gm) Syringe IV PRN PRN Hypoglycemia Donepezil HCl 10 mg 09/04/18 22:00 09/12/18 21:57 Aricept PO 10 mg QHS PRISCA Administration Enoxaparin Sodium 30 mg 09/04/18 22:00 09/12/18 21:58 Lovenox SUB-Q 30 mg QDAY@2200 PRISCA Administration Folic Acid 1 mg 09/04/18 21:00 09/13/18 10:12 Folvite PO 1 mg DAILY PRISCA Administration Sodium Chloride 1,000 mls @ 60 mls/hr 09/12/18 20:00 09/12/18 21:21 Nacl 0.9% 1000 Ml IV 60 mls/hr DIRECT PRISCA Administration Insulin Human Lispro 0 unit 09/05/18 22:00 09/13/18 10:10 Humalog SUB-Q 1 unit ACHS PRISCA Administration Protocol Metronidazole 500 mg 09/06/18 15:00 09/13/18 05:21 Flagyl PO 500 mg Q8HR PRISCA Administration Protocol Pravastatin Sodium 10 mg 09/04/18 22:00 09/12/18 22:50 Pravachol PO 10 mg QHS PRISCA Administration Risperidone 1 mg 09/04/18 22:00 09/12/18 22:50 Risperdal PO 1 mg QHS PRISCA Administration Sodium Bicarbonate 1,300 mg 09/12/18 22:00 09/13/18 10:13 Sodium Bicarbonate PO 1,300 mg BID PRISCA Administration
[2018-09-13] MEDS: NACL 0.9% 1000 ML 1,000 ML IV SCH (13:50)
[2018-09-13] MEDS: PRAVACHOL PO SCH (22:42)
[2018-09-13] MEDS: LOVENOX SUB-Q SCH (22:43)
[2018-09-13] MEDS: RisperDAL PO SCH (22:43)
[2018-09-13] MEDS: ARICEPT PO SCH (22:43)
[2018-09-14 06:18] LABS: Hematocrit 26.7 % (30.3-42.9); Hemoglobin 8.3 gm/dl (10.1-14.3); Mean Corpuscular HGB Conc 31 % (30-34); Mean Corpuscular Volume 84 fl (79-97); Platelet Count 162 K/mm3 (140-440); Red Blood Count 3.17 M/mm3 (3.65-5.03); Red Cell Distribution Width 15.1 % (13.2-15.2)
[2018-09-14] MEDS: NACL 0.9% 1000 ML 1,000 ML IV SCH (06:20)
[2018-09-14] MEDS: FLAGYL PO SCH (06:21)
[2018-09-14 07:04] LABS: Albumin 1.5 g/dL (3.9-5); Calcium 7.6 mg/dL (8.4-10.2)
--- NOTE | 2018-09-14 08:04 | Hem/Onc Progress Note ---
Assessment and Plan 1. Breast mass. As per the information available, she has had a biopsy done at [facility] 3 years ago, but now Radiology shows increase in tumor, this may be a neoplastic process; however, biopsy would be needed. The patient's performance status is not very good. We will discuss with family members to see how much investigation needs to be done. 2. Pancreatic mass, body/tail, it is 7.7 cm. Gastrointestinal team has seen the patient. CA 19-9 ordered. 3. Dementia. 4. Diabetes. 5. Hypertension. 6. Hyperlipidemia. 7. The patient had hypoglycemia. 8. Renal impairment. 9. Mild thrombocytopenia. family discussion will guide - pts performance status not good rt breast mass ~ 2cm family coming on friday - as per RN IV iron - for anemia CA 19-9 - 180s - slightly high - Patient Problems (1) Breast CA Current Visit: Yes Status: Acute Subjective Date of service: 09/14/18 Principal diagnosis: weak Interval history: no fever Objective - Constitutional Vitals: Last Vital Signs Temp 97.9 F 09/14/18 02:12 Pulse 65 09/14/18 02:12 Resp 20 09/14/18 02:12 BP 185/56 09/14/18 02:12 Pulse Ox 100 09/14/18 02:12 Pain Intensity (0-10): denies any pain General appearance: no acute distress Performance status: 4-completely disabled - EENT Eyes: EOM intact ENT: clear oral mucosa - Respiratory Respiratory effort: Positive: normal Respiratory: bilateral: diminished - Cardiovascular Heart Sounds: Present: S1 & S2 - Gastrointestinal General gastrointestinal: Present: soft Rectal Exam: deferred - Genitourinary Female genitourinary: Present: deferred - Integumentary Integumentary: warm - Musculoskeletal Musculoskeletal: generalized weakness - Neurologic Neurologic: other (weak voice) - Labs Lab Results: Laboratory Results - last 24 hr 09/13/18 09/13/18 09/13/18 06:15 11:13 21:50 WBC RBC Hgb Hct MCV MCH MCHC RDW Plt Count Add Manual Diff Complete Total Counted 100 Seg Neuts % (Manual) 89.0 H Band Neutrophils % 0 Lymphocytes % (Manual) 6.0 L Reactive Lymphs % (Man) 0 Monocytes % (Manual) 5.0 Eosinophils % (Manual) 0 Basophils % (Manual) 0 Metamyelocytes % 0 Myelocytes % 0 Promyelocytes % 0 Blast Cells % 0 Nucleated RBC % Not Reportable Seg Neutrophils # Man 12.8 H Band Neutrophils # 0.0 Lymphocytes # (Manual) 0.9 L Abs React Lymphs (Man) 0.0 Monocytes # (Manual) 0.7 Eosinophils # (Manual) 0.0 Basophils # (Manual) 0.0 Metamyelocytes # 0.0 Myelocytes # 0.0 Promyelocytes # 0.0 Blast Cells # 0.0 WBC Morphology Not Reportable Hypersegmented Neuts Not Reportable Hyposegmented Neuts Not Reportable Hypogranular Neuts Not Reportable Smudge Cells Not Reportable Toxic Granulation Not Reportable Toxic Vacuolation Not Reportable Dohle Bodies Not Reportable Pelger-Huet Anomaly Not Reportable [place] Rods Not Reportable Platelet Estimate Consistent w auto Clumped Platelets Not Reportable Plt Clumps, EDTA Not Reportable Large Platelets Not Reportable Giant Platelets Not Reportable Platelet Satelliting Not Reportable Plt Morphology Comment Not Reportable RBC Morphology Not Reportable Dimorphic RBCs Not Reportable Polychromasia Not Reportable Hypochromasia Not Reportable Poikilocytosis Not Reportable Anisocytosis 1+ Microcytosis Not Reportable Macrocytosis Not Reportable Spherocytes Not Reportable Pappenheimer Bodies Not Reportable Sickle Cells Not Reportable Target Cells Not Reportable Tear Drop Cells Not Reportable Ovalocytes Not Reportable Helmet Cells Not Reportable [place] Bodies Not Reportable [place] Rings Not Reportable [place] Cells Not Reportable Bite Cells Not Reportable Crenated Cell Not Reportable Elliptocytes Not Reportable Acanthocytes (Spur) Not Reportable Rouleaux Not Reportable Hemoglobin C Crystals Not Reportable Schistocytes Not Reportable Malaria parasites Not Reportable Paul Bodies Not Reportable Hem Pathologist Commnt No Sodium Potassium Chloride Carbon Dioxide Anion Gap BUN Creatinine Estimated GFR BUN/Creatinine Ratio Glucose POC Glucose 181 H 166 H Calcium Total Bilirubin AST ALT Alkaline Phosphatase Total Protein Albumin Albumin/Globulin Ratio 09/14/18 09/14/18 09/14/18 07:30 Unknown Unknown WBC 11.6 H RBC 3.17 L Hgb 8.3 L Hct 26.7 L MCV 84 MCH 26 L MCHC 31 RDW 15.1 Plt Count 162 Add Manual Diff Total Counted Seg Neuts % (Manual) Band Neutrophils % Lymphocytes % (Manual) Reactive Lymphs % (Man) Monocytes % (Manual) Eosinophils % (Manual) Basophils % (Manual) Metamyelocytes % Myelocytes % Promyelocytes % Blast Cells % Nucleated RBC % Seg Neutrophils # Man Band Neutrophils # Lymphocytes # (Manual) Abs React Lymphs (Man) Monocytes # (Manual) Eosinophils # (Manual) Basophils # (Manual) Metamyelocytes # Myelocytes # Promyelocytes # Blast Cells # WBC Morphology Hypersegmented Neuts Hyposegmented Neuts Hypogranular Neuts Smudge Cells Toxic Granulation Toxic Vacuolation Dohle Bodies Pelger-Huet Anomaly [place] Rods Platelet Estimate Clumped Platelets Plt Clumps, EDTA Large Platelets Giant Platelets Platelet Satelliting Plt Morphology Comment RBC Morphology Dimorphic RBCs Polychromasia Hypochromasia Poikilocytosis Anisocytosis Microcytosis Macrocytosis Spherocytes Pappenheimer Bodies Sickle Cells Target Cells Tear Drop Cells Ovalocytes Helmet Cells [place] Bodies [place] Rings [place] Cells Bite Cells Crenated Cell Elliptocytes Acanthocytes (Spur) Rouleaux Hemoglobin C Crystals Schistocytes Malaria parasites Paul Bodies Hem Pathologist Commnt Sodium 141 Potassium 4.1 Chloride 109.5 H Carbon Dioxide 20 L Anion Gap 16 BUN 29 H Creatinine 1.1 Estimated GFR 57 BUN/Creatinine Ratio 26 Glucose 167 H POC Glucose 176 H Calcium 7.6 L Total Bilirubin 0.30 AST 13 ALT 11 Alkaline Phosphatase 61 Total Protein 5.2 L Albumin 1.5 L Albumin/Globulin Ratio 0.4 Medications & Allergies - Medications Allergies/Adverse Reactions: Allergies No Known Allergies Allergy (Unverified 07/13/16 09:05) Home Medications: Home Medications Medication Instructions Recorded Confirmed Last Taken Type Clopidogrel [Plavix] 75 mg PO DAILY #30 tablet 09/14/18 Unknown Rx Donepezil [Aricept] 10 mg PO QHS #30 tablet 09/14/18 Unknown Rx Folic Acid [Folvite] 1 mg PO DAILY #30 tablet 09/14/18 Unknown Rx Glimepiride [Amaryl] 1 mg PO QAM #30 tablet 09/14/18 Unknown Rx Losartan [Cozaar] 100 mg PO DAILY #30 tablet 09/14/18 Unknown Rx Mirabegron [Myrbetriq] 25 mg PO DAILY #30 tab.er.24h 09/14/18 Unknown Rx NIFEdipine [Nifedipine ER] 90 mg PO DAILY #30 tablet.er 09/14/18 Unknown Rx Pravastatin [Pravachol] 10 mg PO QHS #30 tablet 09/14/18 Unknown Rx Sodium Bicarbonate 1,300 mg PO BID #10 tablet 09/14/18 Unknown Rx hydroCHLOROthiazide [HCTZ] 25 mg PO DAILY #30 tablet 09/14/18 Unknown Rx risperiDONE [RisperDAL] 1 mg PO QHS #30 tablet 09/14/18 Unknown Rx Active Medications: Generic Name Dose Route Start Last Admin Trade Name Freq PRN Reason Stop Dose Admin Acetaminophen/Hydrocodone Bitart 1 each 09/04/18 20:49 09/04/18 22:56 [place] 5/325 PO 1 each Q8H PRN Administration Pain, Moderate (4-6) Clopidogrel Bisulfate 75 mg 09/05/18 10:00 09/13/18 10:12 Plavix PO 75 mg DAILY PRISCA Administration Dextrose 50 ml 09/05/18 10:01 D50w (25gm) Syringe IV PRN PRN Hypoglycemia Donepezil HCl 10 mg 09/04/18 22:00 09/13/18 22:43 Aricept PO 10 mg QHS PRISCA Administration Enoxaparin Sodium 30 mg 09/04/18 22:00 09/13/18 22:43 Lovenox SUB-Q 30 mg QDAY@2200 PRISCA Administration Folic Acid 1 mg 09/04/18 21:00 09/13/18 10:12 Folvite PO 1 mg DAILY PRISCA Administration Sodium Chloride 1,000 mls @ 60 mls/hr 09/12/18 20:00 09/14/18 06:20 Nacl 0.9% 1000 Ml IV 60 mls/hr DIRECT PRISCA Administration Insulin Human Lispro 0 unit 09/05/18 22:00 09/13/18 22:44 Humalog SUB-Q 1 unit ACHS PRISCA Administration Protocol Metronidazole 500 mg 09/06/18 15:00 09/14/18 06:21 Flagyl PO 500 mg Q8HR PRISCA Administration Protocol Pravastatin Sodium 10 mg 09/04/18 22:00 09/13/18 22:42 Pravachol PO 10 mg QHS PRISCA Administration Risperidone 1 mg 09/04/18 22:00 09/13/18 22:43 Risperdal PO 1 mg QHS PRISCA Administration Sodium Bicarbonate 1,300 mg 09/12/18 22:00 09/13/18 22:42 Sodium Bicarbonate PO 1,300 mg BID PRISCA Administration
[2018-09-14] MEDS: HumaLOG SUB-Q SCH (09:39)
--- NOTE | 2018-09-14 10:08 | Progress Note ---
Assessment and Plan Patient is an 88-year-old lady who is well-known to me who currently resides in the past not to history of diabetes mellitus, right breast mass, pancreatic mass, dementia, hypertension, CVA, chronic kidney disease was found to be less arousable at the past not Home with a blood sugar reading of 25. She was given something to eat. EMS was called. Blood sugar improved to 60. Patient was transported to the emergency department. BUN was found to be 64 and creatinine was 2.3. As of July 2017 creatinine was 1.9. WBC was found to be 17.4. Patient was still confused. This was a portable requested. Patient is a poor historian and therefore unable to obtain any reliable history. She is unsure why she was in the hospital. She has become progressively lethargic since after admission as she has not been eating or drinking. Blood sugar has improved to normal. Kidney function worsened but improving with hydration. Nando anemiac. -Acute metabolic encephalopathy improving Multi factorial IV hydration. Correct other underlying factors - Pneumonia left lobe Blood cx negative so far CXR showed left lobar infiltrate. will obtain a follow up CXR Leukocytosis improving Continue with Azithromycin and Rocephine - Sepsis from pneumonia with HR >90 and >20 - Acute on Chronic renal failure - resolving from ATN. Nephrology following. Input appreciated - Anemia of chronic disease s/p blood transfusion. Stable Iron def and TIBC are all consistent with Anemia of chronic disease - Moderate to Severe Malnutrition Dietary consult - Dehydration - improving iv hydration Commence cautious iv hydration - T2DM SSI Consistent Carbohydrate diet - h/o Right breast mass Lethergic for biopsy for now Will obtain Ultrasound guided bx when more alert. Family want everything done Oncology consulted. Input appreciated Low functional status documented making aggressive tx imprudent - H/o Pancreatic mass Per CT abdomen and pelvis Called and discussed with pt's Niece, Ms Inez Michele, at [phone] who wanted every thing to be done including biopsy of breast mass and pancreatic mass. Get record from [facility] if someone who will sign the consent is available. She had a biopsy of same breast mass 3 yrs ago GI input appreciated. Fro MRI when pt is more stable - DVT PPx with lovenox Aspiration precaution Niece still wanted pt to be transferred to [facility] because it is closer to her. She was devised that [facility] may not accept her on that ground. Still wants to try with her contacts over there. Called her today but no response. No voice mail came up either. - Subjective Date of service: 09/14/18 Principal diagnosis: breast and pancreas mass Interval history: Sitting lying quietly in bed. No new complaint. Objective - Exam Narrative Exam: Constitutional: Alert. In no distress Head: Normocephalic atraumatic Eyes: Pupils are equal round and reactive to light Nose: No enlarged turbinates, no septal deviation. Mouth: Moist mucous membranes. Neck: Supple no thyromegaly. No bruit. No JVD Heart: Regular rate and rhythm, S1-S2 normal. No rubs murmurs or gallop Lungs: Clear to auscultation bilaterally. no rales or rhonchi Abdomen: Soft, nontender. Bowel sound are present. Extremities: No edema, no cyanosis, no clubbing. Neuro: alert. does not follow command Skin: No rashes or hyperpigmented spots Musculoskeletal system: No joint pain or swelling Hematological: No petechia or subcutanous hemorrhages. Immunological: No multiple septic spots on the skin Lymphatic: No generalized lymphadenopathy Psychiatry: Euthymic. Calm. - Constitutional Vitals: Vital Signs - 12hr 09/13/18 09/14/18 09/14/18 22:18 02:12 07:29 Temperature 98.1 F 97.9 F 97.8 F Pulse Rate 85 65 65 Respiratory 20 20 20 Rate Blood Pressure 185/56 190/64 Blood Pressure 187/58 [Right] O2 Sat by Pulse 100 100 100 Oximetry 09/14/18 07:30 Temperature Pulse Rate 70 Respiratory Rate Blood Pressure 188/71 Blood Pressure [Right] O2 Sat by Pulse 100 Oximetry - Labs CBC & Chem 7: 09/14/18 Unknown 09/14/18 Unknown Labs: Abnormal lab results 09/13/18 09/13/18 09/13/18 Range/Units 06:15 11:13 21:50 WBC (4.5-11.0) K/mm3 RBC (3.65-5.03) M/mm3 Hgb (10.1-14.3) gm/dl Hct (30.3-42.9) % MCH (28-32) pg Seg Neuts % (Manual) 89.0 H (40.0-70.0) % Lymphocytes % (Manual) 6.0 L (13.4-35.0) % Seg Neutrophils # Man 12.8 H (1.8-7.7) K/mm3 Lymphocytes # (Manual) 0.9 L (1.2-5.4) K/mm3 Chloride (98-107) mmol/L Carbon Dioxide (22-30) mmol/L BUN (7-17) mg/dL Glucose (65-100) mg/dL POC Glucose 181 H 166 H (70-105) Calcium (8.4-10.2) mg/dL Total Protein (6.3-8.2) g/dL Albumin (3.9-5) g/dL 09/14/18 09/14/18 09/14/18 Range/Units 07:30 Unknown Unknown WBC 11.6 H (4.5-11.0) K/mm3 RBC 3.17 L (3.65-5.03) M/mm3 Hgb 8.3 L (10.1-14.3) gm/dl Hct 26.7 L (30.3-42.9) % MCH 26 L (28-32) pg Seg Neuts % (Manual) (40.0-70.0) % Lymphocytes % (Manual) (13.4-35.0) % Seg Neutrophils # Man (1.8-7.7) K/mm3 Lymphocytes # (Manual) (1.2-5.4) K/mm3 Chloride 109.5 H (98-107) mmol/L Carbon Dioxide 20 L (22-30) mmol/L BUN 29 H (7-17) mg/dL Glucose 167 H (65-100) mg/dL POC Glucose 176 H (70-105) Calcium 7.6 L (8.4-10.2) mg/dL Total Protein 5.2 L (6.3-8.2) g/dL Albumin 1.5 L (3.9-5) g/dL
[2018-09-14] MEDS: PLAVIX PO SCH (10:14)
[2018-09-14] MEDS: SODIUM BICARBONATE PO SCH (10:14)
[2018-09-14] MEDS: FOLVITE PO SCH (10:15)
--- NOTE | 2018-09-14 11:56 | Discharge Summary ---
Providers - Providers Date of Admission: 09/04/18 12:47 Date of discharge: 09/14/18 Attending physician: ADE DOMINGO 09/05/18 10:20 Consult to Physician [CONS] Routine Comment: Consulting Provider: ARMOND PARR Physician Instructions: Reason For Exam: Acute on chronic renal failure admitted with hypog 09/08/18 09:41 Consult to Physician [CONS] Routine Comment: called office spoke to margo/darin Consulting Provider: ALFRED SOSA Physician Instructions: Reason For Exam: breat mass 09/08/18 09:42 Consult to Physician [CONS] Routine Comment: called office spoke to deysi/darin Consulting Provider: DIPTI KWOK Physician Instructions: 88y/o w/ pancreatic mass.Fam wants everything done Reason For Exam: Pancreatic mass 09/09/18 08:06 Physical Therapy Evaluation and Treat [CONS] Routine Comment: Reason For Exam: Generalized weakness 09/10/18 08:39 Consult to Physician [CONS] Routine Comment: Consulting Provider: FIDE PACK Physician Instructions: Family wants everything done Reason For Exam: right breast mass Primary care physician: STAFF PHYSICIAN Hospitalization Reason for admission: acute on chronic renal failure, hypolgycemia Condition: Fair Pertinent studies: CXR, Ct or abdomen Procedures: none Hospital course: Patient is an 88-year-old lady who is well-known to me who currently resides in the past not to history of diabetes mellitus, right breast mass, pancreatic mass, dementia, hypertension, CVA, chronic kidney disease was found to be less arousable at the past not Home with a blood sugar reading of 25. She was given something to eat. EMS was called. Blood sugar improved to 60. Patient was transported to the emergency department. BUN was found to be 64 and creatinine was 2.3. As of July 2017 creatinine was 1.9. WBC was found to be 17.4. Patient was still confused. This was a portable requested. Patient is a poor historian and therefore unable to obtain any reliable history. She is unsure why she was in the hospital. She has become progressively lethargic since af ter admission as she has not been eating or drinking. Blood sugar has improved to normal. Kidney function worsened but improving with hydration. On admission was commenced on iv hydration renal US was remarkable for chronic kidney disease, improve with vi hydration. mentation improved and pt was commenced on oral feeding. Discussed at length with pt's niece regarding right breast mas and pancreatic mass for which oncology consult as obtained. Pt with low performance status for further w/u. Will f/u on out patiert bsis for w/u of both massed with GI and oncologist.. Discussed with pt's Niece regarding discharge plan and need to f/u with oncologist and GI. to f/u with PCP in 3-5 days, oncolodgit in 2 weeks and GI in 10 days Disposition: DC/[place]-03 SNF [facility] Time spent for discharge: 35 min - Discharge Diagnoses (1) ARF (acute renal failure) Status: Acute Qualifiers: Acute renal failure type: unspecified Qualified Code(s): N17.9 - Acute kidney failure, unspecified (2) Abdominal pain Status: Acute Qualifiers: Abdominal location: generalized Qualified Code(s): R10.84 - Generalized abdominal pain (3) Breast CA Status: Acute (4) Breast mass Status: Acute (5) Diarrhea Status: Acute (6) Hypoglycemia secondary to sulfonylurea Status: Acute (7) Leukocytosis Status: Acute Qualifiers: Leukocytosis type: unspecified Qualified Code(s): D72.829 - Elevated white blood cell count, unspecified Core Measure Documentation - Palliative Care Palliative Care/ Comfort Measures: Not Applicable - Core Measures Any of the following diagnoses?: none Exam - Physical Exam Narrative exam: Constitutional: Alert. In no distress Head: Normocephalic atraumatic Eyes: Pupils are equal round and reactive to light Nose: No enlarged turbinates, no septal deviation. Mouth: Moist mucous membranes. Neck: Supple no thyromegaly. No bruit. No JVD Heart: Regular rate and rhythm, S1-S2 normal. No rubs murmurs or gallop Lungs: Clear to auscultation bilaterally. no rales or rhonchi Abdomen: Soft, nontender. Bowel sound are present. Extremities: No edema, no cyanosis, no clubbing. Neuro: alert. does not follow command Skin: No rashes or hyperpigmented spots Musculoskeletal system: No joint pain or swelling Hematological: No petechia or subcutanous hemorrhages. Immunological: No multiple septic spots on the skin Lymphatic: No generalized lymphadenopathy Psychiatry: Euthymic. Calm. - Constitutional Vitals: Temp Pulse Resp BP Pulse Ox 97.8 F 70 20 188/71 100 09/14/18 07:29 09/14/18 07:30 09/14/18 07:29 09/14/18 07:30 09/14/18 07:30 Plan Activity: advance as tolerated, fall precautions Weight Bearing Status: Non-Weight Bearing Diet: diabetic Follow up with: PRIMARY CARE, [Primary Care Provider] - 3-5 Days Prescriptions: Clopidogrel [Plavix] 75 mg PO DAILY #30 tablet Donepezil [Aricept] 10 mg PO QHS #30 tablet Folic Acid [Folvite] 1 mg PO DAILY #30 tablet Glimepiride [Amaryl] 1 mg PO QAM #30 tablet hydroCHLOROthiazide [HCTZ] 25 mg PO DAILY #30 tablet Losartan [Cozaar] 100 mg PO DAILY #30 tablet Mirabegron [Myrbetriq] 25 mg PO DAILY #30 tab.er.24h NIFEdipine [Nifedipine ER] 90 mg PO DAILY #30 tablet.er Pravastatin [Pravachol] 10 mg PO QHS #30 tablet risperiDONE [RisperDAL] 1 mg PO QHS #30 tablet Sodium Bicarbonate 1,300 mg PO BID #10 tablet
[2018-09-14 14:27] LABS: Total Cells Counted 100
[2018-09-14 14:28] LABS: Anisocytosis 1+; Band Neutrophils # (Manual) 0.3 K/mm3; Basophils % (Manual) 0 % (0.0-1.8); Eosinophils % (Manual) 0 % (0.0-4.3)
[2018-09-15] MEDS: HumaLOG SUB-Q SCH ×7 (01:28→23:31)
--- NOTE | 2018-09-15 07:56 | Hem/Onc Progress Note ---
Assessment and Plan 1. Breast mass. As per the information available, she has had a biopsy done at [place] 3 years ago, but now Radiology shows increase in tumor, this may be a neoplastic process; however, biopsy would be needed. The patient's performance status is not very good. We will discuss with family members to see how much investigation needs to be done. 2. Pancreatic mass, body/tail, it is 7.7 cm. Gastrointestinal team has seen the patient. CA 19-9 ordered. 3. Dementia. 4. Diabetes. 5. Hypertension. 6. Hyperlipidemia. 7. The patient had hypoglycemia. 8. Renal impairment. 9. Mild thrombocytopenia. family discussion will guide - pts performance status not good rt breast mass ~ 2cm family coming on friday - as per RN IV iron - for anemia CA 19-9 - 180s - slightly high 09/15 - pt was discharged - brought back due to o2 issues - Patient Problems (1) Breast CA Current Visit: Yes Status: Acute Subjective Date of service: 09/15/18 Principal diagnosis: breast and pancreatic mass Interval history: pt was discharged but due to O2 issues came back to hospital Objective - Exam Narrative Exam: minimally communicative - Constitutional Vitals: Last Vital Signs Temp 98.2 F 09/15/18 07:29 Pulse 65 09/15/18 07:29 Resp 20 09/15/18 07:29 BP 142/55 09/15/18 07:29 Pulse Ox 100 09/15/18 07:29 General appearance: no acute distress Performance status: 4-completely disabled - EENT ENT: edentulous Lymph node exam: negative cervical, negative supraclavicular - Respiratory Respiratory effort: Positive: normal Respiratory: bilateral: diminished - Cardiovascular Heart Sounds: Present: S1 & S2 - Gastrointestinal General gastrointestinal: Present: soft Rectal Exam: deferred - Genitourinary Female genitourinary: Present: deferred - Integumentary Integumentary: warm - Musculoskeletal Musculoskeletal: generalized weakness - Labs Lab Results: Laboratory Results - last 24 hr 09/14/18 09/14/18 11:20 Unknown Add Manual Diff Complete Total Counted 100 Seg Neuts % (Manual) 82.0 H Band Neutrophils % 3.0 Lymphocytes % (Manual) 12.0 L Reactive Lymphs % (Man) 0 Monocytes % (Manual) 3.0 Eosinophils % (Manual) 0 Basophils % (Manual) 0 Metamyelocytes % 0 Myelocytes % 0 Promyelocytes % 0 Blast Cells % 0 Nucleated RBC % Not Reportable Seg Neutrophils # Man 9.5 H Band Neutrophils # 0.3 Lymphocytes # (Manual) 1.4 Abs React Lymphs (Man) 0.0 Monocytes # (Manual) 0.3 Eosinophils # (Manual) 0.0 Basophils # (Manual) 0.0 Metamyelocytes # 0.0 Myelocytes # 0.0 Promyelocytes # 0.0 Blast Cells # 0.0 WBC Morphology Not Reportable Hypersegmented Neuts Not Reportable Hyposegmented Neuts Not Reportable Hypogranular Neuts Not Reportable Smudge Cells Not Reportable Toxic Granulation Not Reportable Toxic Vacuolation Not Reportable Dohle Bodies Not Reportable Pelger-Huet Anomaly Not Reportable [place] Rods Not Reportable Platelet Estimate Not Reportable Clumped Platelets Not Reportable Plt Clumps, EDTA Not Reportable Large Platelets Not Reportable Giant Platelets Not Reportable Platelet Satelliting Not Reportable Plt Morphology Comment Not Reportable RBC Morphology Not Reportable Dimorphic RBCs Not Reportable Polychromasia Not Reportable Hypochromasia Not Reportable Poikilocytosis Not Reportable Anisocytosis 1+ Microcytosis Not Reportable Macrocytosis Not Reportable Spherocytes Not Reportable Pappenheimer Bodies Not Reportable Sickle Cells Not Reportable Target Cells Not Reportable Tear Drop Cells Not Reportable Ovalocytes Not Reportable Helmet Cells Not Reportable [place] Bodies Not Reportable [place] Rings Not Reportable [place] Cells Not Reportable Bite Cells Not Reportable Crenated Cell Not Reportable Elliptocytes Not Reportable Acanthocytes (Spur) Not Reportable Rouleaux Not Reportable Hemoglobin C Crystals Not Reportable Schistocytes Not Reportable Malaria parasites Not Reportable Paul Bodies Not Reportable Hem Pathologist Commnt No POC Glucose 254 H Medications & Allergies - Medications Allergies/Adverse Reactions: Allergies No Known Allergies Allergy (Unverified 07/13/16 09:05) Home Medications: Home Medications Medication Instructions Recorded Confirmed Last Taken Type Clopidogrel [Plavix] 75 mg PO DAILY #30 tablet 09/14/18 Unknown Rx Donepezil [Aricept] 10 mg PO QHS #30 tablet 09/14/18 Unknown Rx Folic Acid [Folvite] 1 mg PO DAILY #30 tablet 09/14/18 Unknown Rx Glimepiride [Amaryl] 1 mg PO QAM #30 tablet 09/14/18 Unknown Rx Losartan [Cozaar] 100 mg PO DAILY #30 tablet 09/14/18 Unknown Rx Mirabegron [Myrbetriq] 25 mg PO DAILY #30 tab.er.24h 09/14/18 Unknown Rx NIFEdipine [Nifedipine ER] 90 mg PO DAILY #30 tablet.er 09/14/18 Unknown Rx Pravastatin [Pravachol] 10 mg PO QHS #30 tablet 09/14/18 Unknown Rx Sodium Bicarbonate 1,300 mg PO BID #10 tablet 09/14/18 Unknown Rx hydroCHLOROthiazide [HCTZ] 25 mg PO DAILY #30 tablet 09/14/18 Unknown Rx risperiDONE [RisperDAL] 1 mg PO QHS #30 tablet 09/14/18 Unknown Rx Active Medications: Generic Name Dose Route Start Last Admin Trade Name Freq PRN Reason Stop Dose Admin Acetaminophen/Hydrocodone Bitart 1 each 09/04/18 20:49 09/04/18 22:56 [place] 5/325 PO 1 each Q8H PRN Administration Pain, Moderate (4-6) Clopidogrel Bisulfate 75 mg 09/05/18 10:00 09/14/18 10:14 Plavix PO 75 mg DAILY PRISCA Administration Dextrose 50 ml 09/05/18 10:01 D50w (25gm) Syringe IV PRN PRN Hypoglycemia Donepezil HCl 10 mg 09/04/18 22:00 09/13/18 22:43 Aricept PO 10 mg QHS PRISCA Administration Enoxaparin Sodium 30 mg 09/04/18 22:00 09/13/18 22:43 Lovenox SUB-Q 30 mg QDAY@2200 PRISCA Administration Folic Acid 1 mg 09/04/18 21:00 09/14/18 10:15 Folvite PO 1 mg DAILY PRISCA Administration Sodium Chloride 1,000 mls @ 60 mls/hr 09/12/18 20:00 09/14/18 06:20 Nacl 0.9% 1000 Ml IV 60 mls/hr DIRECT PRISCA Administration Insulin Human Lispro 0 unit 09/05/18 22:00 09/15/18 01:28 Humalog SUB-Q Not Given ACHS PRISCA Protocol Metronidazole 500 mg 09/06/18 15:00 09/14/18 06:21 Flagyl PO 500 mg Q8HR PRISCA Administration Protocol Pravastatin Sodium 10 mg 09/04/18 22:00 09/13/18 22:42 Pravachol PO 10 mg QHS PRISCA Administration Risperidone 1 mg 09/04/18 22:00 09/13/18 22:43 Risperdal PO 1 mg QHS PRISCA Administration Sodium Bicarbonate 1,300 mg 09/12/18 22:00 09/14/18 10:14 Sodium Bicarbonate PO 1,300 mg BID PRISCA Administration
--- NOTE | 2018-09-15 08:50 | Progress Note ---
Assessment and Plan Patient is an 88-year-old lady who is well-known to me who currently resides in the past not to history of diabetes mellitus, right breast mass, pancreatic mass, dementia, hypertension, CVA, chronic kidney disease was found to be less arousable at the past not Home with a blood sugar reading of 25. She was given something to eat. EMS was called. Blood sugar improved to 60. Patient was transported to the emergency department. BUN was found to be 64 and creatinine was 2.3. As of July 2017 creatinine was 1.9. WBC was found to be 17.4. Patient was still confused. This was a portable requested. Patient is a poor historian and therefore unable to obtain any reliable history. She is unsure why she was in the hospital. She has become progressively lethargic since after admission as she has not been eating or drinking. Blood sugar has improved to normal. Kidney function worsened but improving with hydration. Dischargd 09/14/18 but coukld not be handlebe by the personal long-term because high level of dependence for all ADL -Acute metabolic encephalopathy improving Multi factorial IV hydration. Correct other underlying factors - Pneumonia left lobe Blood cx negative so far CXR showed left lobar infiltrate. will obtain a follow up CXR Leukocytosis improving Continue with Azithromycin and Rocephine - Sepsis - resolved from pneumonia with HR >90 and >20 - Acute on Chronic renal failure - resolving from ATN. Nephrology following. Input appreciated - Anemia of chronic disease s/p blood transfusion. Stable Iron def and TIBC are all consistent with Anemia of chronic disease - Moderate to Severe Malnutrition Dietary consult - Dehydration - improving iv hydration Commence cautious iv hydration - T2DM SSI Consistent Carbohydrate diet - h/o Right breast mass Lethergic for biopsy for now Will obtain Ultrasound guided bx when more alert. Family want everything done Oncology consulted. Input appreciated Low functional status documented making aggressive tx imprudent - H/o Pancreatic mass Per CT abdomen and pelvis Called and discussed with pt's Niece, Ms Inez Michele, at [phone] who wanted every thing to be done including biopsy of breast mass and pancreatic mass. Get record from [facility] if someone who will sign the consent is available. She had a biopsy of same breast mass 3 yrs ago GI input appreciated. Fro MRI when pt is more stable - DVT PPx with lovenox Will check labs - Subjective Date of service: 09/15/18 Principal diagnosis: Breast mass, Pancreatic cancer,hypoglycemia Interval history: Pt was discharged yesterday but could not stay at personal long-term because of high nursing demand. Will need SNF. Lying quielty in bed. No new complaint. Objective - Exam Narrative Exam: Constitutional: Alert. In no distress Head: Normocephalic atraumatic Eyes: Pupils are equal round and reactive to light Nose: No enlarged turbinates, no septal deviation. Mouth: Moist mucous membranes. Neck: Supple no thyromegaly. No bruit. No JVD Heart: Regular rate and rhythm, S1-S2 normal. No rubs murmurs or gallop Lungs: Clear to auscultation bilaterally. no rales or rhonchi Abdomen: Soft, nontender. Bowel sound are present. Extremities: No edema, no cyanosis, no clubbing. Neuro: alert. does not follow command Skin: No rashes or hyperpigmented spots Musculoskeletal system: No joint pain or swelling Hematological: No petechia or subcutanous hemorrhages. Immunological: No multiple septic spots on the skin Lymphatic: No generalized lymphadenopathy Psychiatry: Euthymic. Calm. - Constitutional Vitals: Vital Signs - 12hr 09/14/18 09/15/18 09/15/18 21:00 02:00 07:29 Temperature 97.9 F 98.1 F 98.2 F Pulse Rate 83 86 65 Respiratory 18 18 20 Rate Blood Pressure 123/65 136/70 142/55 [Right] O2 Sat by Pulse 100 98 100 Oximetry - Labs CBC & Chem 7: 09/14/18 Unknown 09/14/18 Unknown Labs: Abnormal lab results 09/14/18 09/14/18 Range/Units 11:20 Unknown Seg Neuts % (Manual) 82.0 H (40.0-70.0) % Lymphocytes % (Manual) 12.0 L (13.4-35.0) % Seg Neutrophils # Man 9.5 H (1.8-7.7) K/mm3 POC Glucose 254 H (70-105)
[2018-09-15] MEDS: PLAVIX PO SCH (09:58)
[2018-09-15] MEDS: FOLVITE PO SCH (09:58)
[2018-09-15] MEDS: SODIUM BICARBONATE PO SCH ×3 (09:58→23:32)
[2018-09-15 10:00] LABS: Basophils # (Auto) 0.1 K/mm3 (0.0-0.1); Basophils % (Auto) 0.6 % (0.0-1.8); Eosinophils # (Auto) 0.1 K/mm3 (0.0-0.4); Eosinophils % (Auto) 1.1 % (0.0-4.3); Hematocrit 25.3 % (30.3-42.9); Hemoglobin 7.7 gm/dl (10.1-14.3); Lymphocytes # (Auto) 1.2 K/mm3 (1.2-5.4); Mean Corpuscular HGB Conc 31 % (30-34); Mean Corpuscular Volume 85 fl (79-97); Monocytes # (Auto) 0.8 K/mm3 (0.0-0.8); Platelet Count 164 K/mm3 (140-440); Red Blood Count 2.97 M/mm3 (3.65-5.03); Red Cell Distribution Width 15.7 % (13.2-15.2)
[2018-09-15] MEDS ORDERED: NACL 0.9% IV SCH (10:00)
[2018-09-15 10:27] LABS: Albumin 1.7 g/dL (3.9-5); Calcium 7.7 mg/dL (8.4-10.2)
[2018-09-15] MEDS: FLAGYL PO SCH ×4 (13:14→23:31)
[2018-09-15] MEDS: ARICEPT PO SCH ×2 (22:54→23:31)
[2018-09-15] MEDS: RisperDAL PO SCH ×2 (22:55→23:31)
[2018-09-15] MEDS: PRAVACHOL PO SCH ×2 (22:55→23:31)
[2018-09-15] MEDS: LOVENOX SUB-Q SCH ×2 (22:55→23:31)
[2018-09-15] MEDS: NACL 0.9% 1000 ML 1,000 ML IV SCH (23:33)
[2018-09-16] MEDS: FLAGYL PO SCH ×3 (06:28→17:30)
[2018-09-16 06:31] LABS: Basophils # (Auto) 0.1 K/mm3 (0.0-0.1); Basophils % (Auto) 0.5 % (0.0-1.8); Eosinophils # (Auto) 0.3 K/mm3 (0.0-0.4); Eosinophils % (Auto) 2.2 % (0.0-4.3); Hematocrit 25.1 % (30.3-42.9); Hemoglobin 7.8 gm/dl (10.1-14.3); Lymphocytes # (Auto) 1.5 K/mm3 (1.2-5.4); Lymphocytes % (Auto) 13.5 % (13.4-35.0); Mean Corpuscular HGB Conc 31 % (30-34); Mean Corpuscular Volume 83 fl (79-97); Monocytes # (Auto) 0.8 K/mm3 (0.0-0.8); Monocytes % (Auto) 7.2 % (0.0-7.3); Platelet Count 180 K/mm3 (140-440); Red Blood Count 3.01 M/mm3 (3.65-5.03)
[2018-09-16 07:25] LABS: Calcium 7.7 mg/dL (8.4-10.2)
[2018-09-16] MEDS: HumaLOG SUB-Q SCH ×4 (07:52→23:00)
--- NOTE | 2018-09-16 08:34 | Hem/Onc Progress Note ---
Assessment and Plan 1. Breast mass. As per the information available, she has had a biopsy done at [place] 3 years ago, but now Radiology shows increase in tumor, this may be a neoplastic process; however, biopsy would be needed. The patient's performance status is not very good. We will discuss with family members to see how much investigation needs to be done. 2. Pancreatic mass, body/tail, it is 7.7 cm. Gastrointestinal team has seen the patient. CA 19-9 ordered. 3. Dementia. 4. Diabetes. 5. Hypertension. 6. Hyperlipidemia. 7. The patient had hypoglycemia. 8. Renal impairment. 9. Mild thrombocytopenia. family discussion will guide - pts performance status not good rt breast mass ~ 2cm family coming on friday - as per RN IV iron - for anemia CA 19-9 - 180s - slightly high 09/15 - pt was discharged - brought back due to o2 issues 09/16 - performance status poor - Hospice eval an option. - Patient Problems (1) Breast CA Current Visit: Yes Status: Acute Subjective Date of service: 09/16/18 Principal diagnosis: breast and pancreatic mass -anemia Interval history: d/w RN - pt not very communicative Objective - Constitutional Vitals: Last Vital Signs Temp 97.9 F 09/16/18 08:24 Pulse 65 09/16/18 08:24 Resp 20 09/16/18 08:24 BP 167/56 09/16/18 08:24 Pulse Ox 100 09/16/18 08:24 Pain Intensity (0-10): denies any pain General appearance: no acute distress Performance status: 4-completely disabled - EENT Eyes: EOM intact Lymph node exam: negative cervical, negative supraclavicular - Respiratory Respiratory effort: Positive: normal Respiratory: bilateral: diminished - Cardiovascular Heart Sounds: Present: S1 & S2 Extremities: No edema - Gastrointestinal General gastrointestinal: Present: soft Rectal Exam: deferred - Genitourinary Female genitourinary: Present: deferred - Integumentary Integumentary: warm - Musculoskeletal Musculoskeletal: generalized weakness - Neurologic Neurologic: moves all extremities - Labs Lab Results: Laboratory Results - last 24 hr 09/15/18 09/15/18 09/16/18 09:31 09:32 06:09 WBC 12.9 H 11.4 H RBC 2.97 L 3.01 L Hgb 7.7 L 7.8 L Hct 25.3 L 25.1 L MCV 85 83 MCH 26 L 26 L MCHC 31 31 RDW 15.7 H 16.0 H Plt Count 164 180 Lymph % (Auto) 9.0 L 13.5 [place] % (Auto) 6.0 7.2 Eos % (Auto) 1.1 2.2 Baso % (Auto) 0.6 0.5 Lymph # 1.2 1.5 [place] # 0.8 0.8 Eos # 0.1 0.3 Baso # 0.1 0.1 Seg Neutrophils % 83.3 H 76.6 H Seg Neutrophils # 10.8 H 8.7 H Sodium 143 D Potassium 3.9 Chloride 111.7 H Carbon Dioxide 21 L Anion Gap 14 BUN 33 H Creatinine 1.6 H Estimated GFR 37 BUN/Creatinine Ratio 21 Glucose 167 H Calcium 7.7 L Phosphorus Magnesium Total Bilirubin 0.20 AST 8 ALT 9 Alkaline Phosphatase 61 Total Protein 5.1 L Albumin 1.7 L Albumin/Globulin Ratio 0.5 09/16/18 06:09 WBC RBC Hgb Hct MCV MCH MCHC RDW Plt Count Lymph % (Auto) [place] % (Auto) Eos % (Auto) Baso % (Auto) Lymph # [place] # Eos # Baso # Seg Neutrophils % Seg Neutrophils # Sodium 145 Potassium 5.3 H D Chloride 114.1 H Carbon Dioxide 17 L Anion Gap 19 BUN 35 H Creatinine 1.8 H Estimated GFR 32 BUN/Creatinine Ratio 19 Glucose 129 H Calcium 7.7 L Phosphorus 3.00 Magnesium 1.80 Total Bilirubin 0.20 AST 18 ALT 10 Alkaline Phosphatase 70 Total Protein 5.0 L Albumin 2.0 L Albumin/Globulin Ratio 0.7 Medications & Allergies - Medications Allergies/Adverse Reactions: Allergies No Known Allergies Allergy (Unverified 07/13/16 09:05) Home Medications: Home Medications Medication Instructions Recorded Confirmed Last Taken Type Clopidogrel [Plavix] 75 mg PO DAILY #30 tablet 09/14/18 Unknown Rx Donepezil [Aricept] 10 mg PO QHS #30 tablet 09/14/18 Unknown Rx Folic Acid [Folvite] 1 mg PO DAILY #30 tablet 09/14/18 Unknown Rx Glimepiride [Amaryl] 1 mg PO QAM #30 tablet 09/14/18 Unknown Rx Losartan [Cozaar] 100 mg PO DAILY #30 tablet 09/14/18 Unknown Rx Mirabegron [Myrbetriq] 25 mg PO DAILY #30 tab.er.24h 09/14/18 Unknown Rx NIFEdipine [Nifedipine ER] 90 mg PO DAILY #30 tablet.er 09/14/18 Unknown Rx Pravastatin [Pravachol] 10 mg PO QHS #30 tablet 09/14/18 Unknown Rx Sodium Bicarbonate 1,300 mg PO BID #10 tablet 09/14/18 Unknown Rx hydroCHLOROthiazide [HCTZ] 25 mg PO DAILY #30 tablet 09/14/18 Unknown Rx risperiDONE [RisperDAL] 1 mg PO QHS #30 tablet 09/14/18 Unknown Rx Active Medications: Generic Name Dose Route Start Last Admin Trade Name Freq PRN Reason Stop Dose Admin Acetaminophen/Hydrocodone Bitart 1 each 09/04/18 20:49 09/04/18 22:56 [place] 5/325 PO 1 each Q8H PRN Administration Pain, Moderate (4-6) Clopidogrel Bisulfate 75 mg 09/05/18 10:00 09/15/18 09:58 Plavix PO 75 mg DAILY [facility] Administration Dextrose 50 ml 09/05/18 10:01 D50w (25gm) Syringe IV PRN PRN Hypoglycemia Donepezil HCl 10 mg 09/04/18 22:00 09/15/18 23:31 Aricept PO Not Given QHS PRISCA Enoxaparin Sodium 30 mg 09/04/18 22:00 09/15/18 23:31 Lovenox SUB-Q Not Given QDAY@2200 PRISCA Folic Acid 1 mg 09/04/18 21:00 09/15/18 09:58 Folvite PO 1 mg DAILY PRISCA Administration Sodium Chloride 1,000 mls @ 75 mls/hr 09/12/18 20:00 09/15/18 23:33 Nacl 0.9% 1000 Ml IV 60 mls/hr DIRECT PRISCA Administration Insulin Human Lispro 0 unit 09/05/18 22:00 09/16/18 07:52 Humalog SUB-Q Not Given ACHS PRISCA Protocol Metronidazole 500 mg 09/06/18 15:00 09/16/18 06:28 Flagyl PO 500 mg Q8HR PRISCA Administration Protocol Pravastatin Sodium 10 mg 09/04/18 22:00 09/15/18 23:31 Pravachol PO Not Given QHS PRISCA Risperidone 1 mg 09/04/18 22:00 09/15/18 23:31 Risperdal PO Not Given QHS PRISCA Sodium Bicarbonate 1,300 mg 09/12/18 22:00 09/15/18 23:32 Sodium Bicarbonate PO Not Given BID PRISCA
[2018-09-16] MEDS: SODIUM BICARBONATE PO SCH ×2 (10:40→22:59)
[2018-09-16] MEDS: PLAVIX PO SCH (10:41)
[2018-09-16] MEDS: FOLVITE PO SCH (10:41)
--- NOTE | 2018-09-16 10:51 | Progress Note ---
Subjective Date of service: 09/16/18 Principal diagnosis: breast and pancreatic mass, anemia, metabolic encephalopathy Interval history: Lying quielty in bed. No new complaint. Awaiting placement Objective - Exam Narrative Exam: Constitutional: Alert. In no distress Head: Normocephalic atraumatic Eyes: Pupils are equal round and reactive to light Nose: No enlarged turbinates, no septal deviation. Mouth: Moist mucous membranes. Neck: Supple no thyromegaly. No bruit. No JVD Heart: Regular rate and rhythm, S1-S2 normal. No rubs murmurs or gallop Lungs: Clear to auscultation bilaterally. no rales or rhonchi Abdomen: Soft, nontender. Bowel sound are present. Extremities: No edema, no cyanosis, no clubbing. Neuro: alert. does not follow command Skin: No rashes or hyperpigmented spots Musculoskeletal system: No joint pain or swelling Hematological: No petechia or subcutanous hemorrhages. Immunological: No multiple septic spots on the skin Lymphatic: No generalized lymphadenopathy Psychiatry: Euthymic. Calm. - Constitutional Vitals: Vital Signs - 12hr 09/15/18 09/16/18 09/16/18 23:00 01:42 08:24 Temperature 98.4 F 97.9 F Pulse Rate 60 65 Respiratory 20 20 20 Rate Blood Pressure 163/54 167/56 [Right] O2 Sat by Pulse 99 97 100 Oximetry - Labs CBC & Chem 7: 09/16/18 06:09 09/16/18 06:09 Labs: Abnormal lab results 09/16/18 09/16/18 Range/Units 06:09 06:09 WBC 11.4 H (4.5-11.0) K/mm3 RBC 3.01 L (3.65-5.03) M/mm3 Hgb 7.8 L (10.1-14.3) gm/dl Hct 25.1 L (30.3-42.9) % MCH 26 L (28-32) pg RDW 16.0 H (13.2-15.2) % Seg Neutrophils % 76.6 H (40.0-70.0) % Seg Neutrophils # 8.7 H (1.8-7.7) K/mm3 Potassium 5.3 H D (3.6-5.0) mmol/L Chloride 114.1 H (98-107) mmol/L Carbon Dioxide 17 L (22-30) mmol/L BUN 35 H (7-17) mg/dL Creatinine 1.8 H (0.7-1.2) mg/dL Glucose 129 H (65-100) mg/dL Calcium 7.7 L (8.4-10.2) mg/dL Total Protein 5.0 L (6.3-8.2) g/dL Albumin 2.0 L (3.9-5) g/dL
[2018-09-16] MEDS: LOVENOX SUB-Q SCH (22:59)
[2018-09-16] MEDS: RisperDAL PO SCH (22:59)
[2018-09-16] MEDS: PRAVACHOL PO SCH (23:00)
[2018-09-16] MEDS: ARICEPT PO SCH (23:00)
[2018-09-17] MEDS ORDERED: PROCARDIA XL PO SCH (00:41)
[2018-09-17] MEDS: NORVASC PO SCH ×2 (02:07→11:31)
[2018-09-17 05:02] LABS: Basophils # (Auto) 0.1 K/mm3 (0.0-0.1); Basophils % (Auto) 1.2 % (0.0-1.8); Eosinophils # (Auto) 0.2 K/mm3 (0.0-0.4); Eosinophils % (Auto) 2.1 % (0.0-4.3); Hematocrit 25.6 % (30.3-42.9); Hemoglobin 8.1 gm/dl (10.1-14.3); Lymphocytes # (Auto) 1.5 K/mm3 (1.2-5.4); Lymphocytes % (Auto) 15.5 % (13.4-35.0); Mean Corpuscular HGB Conc 32 % (30-34); Mean Corpuscular Volume 84 fl (79-97); Monocytes # (Auto) 0.8 K/mm3 (0.0-0.8); Monocytes % (Auto) 8.6 % (0.0-7.3); Platelet Count 147 K/mm3 (140-440); Red Blood Count 3.06 M/mm3 (3.65-5.03); Red Cell Distribution Width 15.9 % (13.2-15.2)
[2018-09-17 05:31] LABS: Albumin 1.6 g/dL (3.9-5); Calcium 7.3 mg/dL (8.4-10.2)
[2018-09-17] MEDS: NACL 0.9% 1000 ML 1,000 ML IV SCH ×2 (06:50→23:19)
--- NOTE | 2018-09-17 07:50 | Hem/Onc Progress Note ---
Assessment and Plan 1. Breast mass. As per the information available, she has had a biopsy done at [place] 3 years ago, but now Radiology shows increase in tumor, this may be a neoplastic process; however, biopsy would be needed. The patient's performance status is not very good. We will discuss with family members to see how much investigation needs to be done. 2. Pancreatic mass, body/tail, it is 7.7 cm. Gastrointestinal team has seen the patient. CA 19-9 ordered. 3. Dementia. 4. Diabetes. 5. Hypertension. 6. Hyperlipidemia. 7. The patient had hypoglycemia. 8. Renal impairment. 9. Mild thrombocytopenia. family discussion will guide - pts performance status not good rt breast mass ~ 2cm family coming on friday - as per RN IV iron - for anemia CA 19-9 - 180s - slightly high 09/15 - pt was discharged - brought back due to o2 issues 09/17 - performance status poor -- slow speech - Hospice eval an option. - Patient Problems (1) Breast CA Current Visit: Yes Status: Acute Subjective Date of service: 09/17/18 Principal diagnosis: breast and pancreatic mass Objective - Constitutional Vitals: Last Vital Signs Temp 98.4 F 09/17/18 03:47 Pulse 64 09/17/18 03:47 Resp 22 09/17/18 03:47 BP 173/46 09/17/18 03:47 Pulse Ox 96 09/17/18 03:47 General appearance: no acute distress Performance status: 4-completely disabled - EENT Eyes: EOM intact ENT: edentulous Lymph node exam: negative cervical - Respiratory Respiratory effort: Positive: normal Respiratory: bilateral: diminished - Cardiovascular Heart Sounds: Present: S1 & S2 Extremities: No edema - Gastrointestinal General gastrointestinal: Present: soft Rectal Exam: deferred - Genitourinary Female genitourinary: Present: deferred - Integumentary Integumentary: warm - Musculoskeletal Musculoskeletal: generalized weakness - Neurologic Neurologic: moves all extremities - Labs Lab Results: Laboratory Results - last 24 hr 09/16/18 09/16/18 09/16/18 11:55 17:17 21:45 WBC RBC Hgb Hct MCV MCH MCHC RDW Plt Count Lymph % (Auto) [place] % (Auto) Eos % (Auto) Baso % (Auto) Lymph # [place] # Eos # Baso # Seg Neutrophils % Seg Neutrophils # Sodium Potassium Chloride Carbon Dioxide Anion Gap BUN Creatinine Estimated GFR BUN/Creatinine Ratio Glucose POC Glucose 189 H 227 H 143 H Calcium Total Bilirubin AST ALT Alkaline Phosphatase Total Protein Albumin Albumin/Globulin Ratio 09/17/18 09/17/18 09/17/18 04:30 04:30 07:10 WBC 9.4 RBC 3.06 L Hgb 8.1 L Hct 25.6 L MCV 84 MCH 26 L MCHC 32 RDW 15.9 H Plt Count 147 Lymph % (Auto) 15.5 [place] % (Auto) 8.6 H Eos % (Auto) 2.1 Baso % (Auto) 1.2 Lymph # 1.5 [place] # 0.8 Eos # 0.2 Baso # 0.1 Seg Neutrophils % 72.6 H Seg Neutrophils # 6.8 Sodium 144 Potassium 3.8 D Chloride 111.2 H Carbon Dioxide 21 L Anion Gap 16 BUN 26 H Creatinine 1.4 H Estimated GFR 43 BUN/Creatinine Ratio 19 Glucose 168 H POC Glucose 163 H Calcium 7.3 L Total Bilirubin 0.20 AST 16 ALT 9 Alkaline Phosphatase 61 Total Protein 4.7 L Albumin 1.6 L Albumin/Globulin Ratio 0.5 Medications & Allergies - Medications Allergies/Adverse Reactions: Allergies No Known Allergies Allergy (Unverified 07/13/16 09:05) Home Medications: Home Medications Medication Instructions Recorded Confirmed Last Taken Type Clopidogrel [Plavix] 75 mg PO DAILY #30 tablet 09/14/18 Unknown Rx Donepezil [Aricept] 10 mg PO QHS #30 tablet 09/14/18 Unknown Rx Folic Acid [Folvite] 1 mg PO DAILY #30 tablet 09/14/18 Unknown Rx Glimepiride [Amaryl] 1 mg PO QAM #30 tablet 09/14/18 Unknown Rx Losartan [Cozaar] 100 mg PO DAILY #30 tablet 09/14/18 Unknown Rx Mirabegron [Myrbetriq] 25 mg PO DAILY #30 tab.er.24h 09/14/18 Unknown Rx NIFEdipine [Nifedipine ER] 90 mg PO DAILY #30 tablet.er 09/14/18 Unknown Rx Pravastatin [Pravachol] 10 mg PO QHS #30 tablet 09/14/18 Unknown Rx Sodium Bicarbonate 1,300 mg PO BID #10 tablet 09/14/18 Unknown Rx hydroCHLOROthiazide [HCTZ] 25 mg PO DAILY #30 tablet 09/14/18 Unknown Rx risperiDONE [RisperDAL] 1 mg PO QHS #30 tablet 09/14/18 Unknown Rx Active Medications: Generic Name Dose Route Start Last Admin Trade Name Freq PRN Reason Stop Dose Admin Acetaminophen/Hydrocodone Bitart 1 each 09/04/18 20:49 09/04/18 22:56 [place] 5/325 PO 1 each Q8H PRN Administration Pain, Moderate (4-6) Amlodipine Besylate 10 mg 09/17/18 01:13 09/17/18 02:07 Norvasc PO 10 mg QDAY PRIS[facility] Administration Clopidogrel Bisulfate 75 mg 09/05/18 10:00 09/16/18 10:41 Plavix PO 75 mg DAILY [facility] Administration Dextrose 50 ml 09/05/18 10:01 D50w (25gm) Syringe IV PRN PRN Hypoglycemia Donepezil HCl 10 mg 09/04/18 22:00 09/16/18 23:00 Aricept PO 10 mg QHS PRISCA Administration Enoxaparin Sodium 30 mg 09/04/18 22:00 09/16/18 22:59 Lovenox SUB-Q 30 mg QDAY@2200 PR[facility] Administration Folic Acid 1 mg 09/04/18 21:00 09/16/18 10:41 Folvite PO 1 mg DAILY [facility] Administration Sodium Chloride 1,000 mls @ 75 mls/hr 09/12/18 20:00 09/17/18 06:50 Nacl 0.9% 1000 Ml IV 60 mls/hr DIRECT PRIS[facility] Administration Insulin Human Lispro 0 unit 09/05/18 22:00 09/16/18 23:00 Humalog SUB-Q Not Given ACHS [facility] Protocol Losartan Potassium 100 mg 09/17/18 10:00 Cozaar PO QDAY PRISCA Pravastatin Sodium 10 mg 09/04/18 22:00 09/16/18 23:00 Pravachol PO 10 mg QHS [facility] Administration Risperidone 1 mg 09/04/18 22:00 09/16/18 22:59 Risperdal PO 1 mg QHS PRIS[facility] Administration Sodium Bicarbonate 1,300 mg 09/12/18 22:00 09/16/18 22:59 Sodium Bicarbonate PO 1,300 mg BID PRIS[facility] Administration
[2018-09-17] MEDS: HumaLOG SUB-Q SCH ×4 (08:00→22:53)
[2018-09-17] MEDS ORDERED: COZAAR PO SCH (10:00)
--- NOTE | 2018-09-17 10:20 | Progress Note ---
Assessment and Plan Patient is an 88-year-old lady who is well-known to me who currently resides in the past not to history of diabetes mellitus, right breast mass, pancreatic mass, dementia, hypertension, CVA, chronic kidney disease was found to be less arousable at the past not Home with a blood sugar reading of 25. She was given something to eat. EMS was called. Blood sugar improved to 60. Patient was transported to the emergency department. BUN was found to be 64 and creatinine was 2.3. As of July 2017 creatinine was 1.9. WBC was found to be 17.4. Patient was still confused. This was a portable requested. Patient is a poor historian and therefore unable to obtain any reliable history. She is unsure why she was in the hospital. She has become progressively lethargic since after admission as she has not been eating or drinking. Blood sugar has improved to normal. Kidney function worsened but improving with hydration. Discharged 09/14/18 but could not be handled by the personal custodial because high level of dependence for all ADL. Pt is off oxygen and requiring to be fed. sitting out of bed with help -Acute metabolic encephalopathy improved to base line - Pneumonia left lobe Blood cx negative so far CXR showed left lobar infiltrate. will obtain a follow up CXR Leukocytosis improving Continue with Azithromycin and Rocephine - Sepsis - from Pneumonia - resolved - Hypertension: commenced pt on Amlodipine 10 mg and Losartan 100gm - Acute on Chronic renal failure - resolving from ATN. Nephrology following. Input appreciated - Anemia of chronic disease s/p blood transfusion. Stable Iron def and TIBC are all consistent with Anemia of chronic disease - Moderate to Severe Malnutrition Dietary consult - Dehydration - improving iv hydration Commence cautious iv hydration - T2DM SSI Consistent Carbohydrate diet - h/o Right breast mass Lethergic for biopsy for now Will obtain Ultrasound guided bx when more alert. Family want everything done Oncology consulted. Input appreciated Low functional status documented making aggressive tx imprudent - H/o Pancreatic mass Per CT abdomen and pelvis Called and discussed with pt's Niece, Ms Inez Michele, at [phone] who wanted every thing to be done including biopsy of breast mass and pancreatic mass. Get record from [place] if someone who will sign the consent is available. She had a biopsy of same breast mass 3 yrs ago GI input appreciated. Fro MRI when pt is more stable - DVT PPx with lovenox Will check labs - Subjective Date of service: 09/17/18 Principal diagnosis: breast and pancreatic massmetabolic encephalopathy Interval history: Sitting out of bed on the chair, with no new complaint. Awaiting placement Objective - Exam Narrative Exam: Constitutional: Alert. interractive as of base line. In no distress Head: Normocephalic atraumatic Eyes: Pupils are equal round and reactive to light Nose: No enlarged turbinates, no septal deviation. Mouth: Moist mucous membranes. Neck: Supple no thyromegaly. No bruit. No JVD Heart: Regular rate and rhythm, S1-S2 normal. No rubs murmurs or gallop Lungs: Clear to auscultation bilaterally. no rales or rhonchi Abdomen: Soft, nontender. Bowel sound are present. Extremities: No edema, no cyanosis, no clubbing. Neuro: Alert. interatly pleasantly confused Skin: No rashes or hyperpigmented spots Musculoskeletal system: No joint pain or swelling Hematological: No petechia or subcutanous hemorrhages. Immunological: No multiple septic spots on the skin Lymphatic: No generalized lymphadenopathy Psychiatry: Euthymic. Calm. - Constitutional Vitals: Vital Signs - 12hr 09/17/18 09/17/18 09/17/18 00:26 00:31 03:47 Temperature 98.9 F 98.4 F Pulse Rate 69 69 64 Respiratory 20 22 Rate Blood Pressure 184/58 173/46 Blood Pressure 190/57 [Left] O2 Sat by Pulse 98 99 96 Oximetry 09/17/18 09/17/18 07:08 07:53 Temperature 98.6 F Pulse Rate 68 Respiratory 19 Rate Blood Pressure 177/52 Blood Pressure [Left] O2 Sat by Pulse 96 Oximetry - Labs CBC & Chem 7: 09/18/18 03:08 09/18/18 03:08 Labs: Abnormal lab results 09/16/18 09/16/18 09/16/18 Range/Units 11:55 17:17 21:45 RBC (3.65-5.03) M/mm3 Hgb (10.1-14.3) gm/dl Hct (30.3-42.9) % MCH (28-32) pg RDW (13.2-15.2) % [place] % (Auto) (0.0-7.3) % Seg Neutrophils % (40.0-70.0) % Chloride (98-107) mmol/L Carbon Dioxide (22-30) mmol/L BUN (7-17) mg/dL Creatinine (0.7-1.2) mg/dL Glucose (65-100) mg/dL POC Glucose 189 H 227 H 143 H (70-105) Calcium (8.4-10.2) mg/dL Total Protein (6.3-8.2) g/dL Albumin (3.9-5) g/dL 09/17/18 09/17/18 09/17/18 Range/Units 04:30 04:30 07:10 RBC 3.06 L (3.65-5.03) M/mm3 Hgb 8.1 L (10.1-14.3) gm/dl Hct 25.6 L (30.3-42.9) % MCH 26 L (28-32) pg RDW 15.9 H (13.2-15.2) % [place] % (Auto) 8.6 H (0.0-7.3) % Seg Neutrophils % 72.6 H (40.0-70.0) % Chloride 111.2 H (98-107) mmol/L Carbon Dioxide 21 L (22-30) mmol/L BUN 26 H (7-17) mg/dL Creatinine 1.4 H (0.7-1.2) mg/dL Glucose 168 H (65-100) mg/dL POC Glucose 163 H (70-105) Calcium 7.3 L (8.4-10.2) mg/dL Total Protein 4.7 L (6.3-8.2) g/dL Albumin 1.6 L (3.9-5) g/dL
[2018-09-17] MEDS: CATAPRES PO SCH ×2 (11:21→21:06)
[2018-09-17] MEDS: PLAVIX PO SCH (11:22)
[2018-09-17] MEDS: FOLVITE PO SCH (11:22)
[2018-09-17] MEDS: SODIUM BICARBONATE PO SCH ×2 (11:22→21:06)
[2018-09-17] MEDS: NORMODYNE PO SCH ×2 (11:35→21:06)
[2018-09-17] MEDS: PRAVACHOL PO SCH (21:06)
[2018-09-17] MEDS: LOVENOX SUB-Q SCH (21:07)
[2018-09-17] MEDS: RisperDAL PO SCH (21:07)
[2018-09-17] MEDS: ARICEPT PO SCH (21:07)
[2018-09-18 03:55] LABS: Basophils # (Auto) 0.1 K/mm3 (0.0-0.1); Basophils % (Auto) 0.6 % (0.0-1.8); Eosinophils # (Auto) 0.2 K/mm3 (0.0-0.4); Eosinophils % (Auto) 2.6 % (0.0-4.3); Hematocrit 23.9 % (30.3-42.9); Hemoglobin 7.7 gm/dl (10.1-14.3); Lymphocytes # (Auto) 1.7 K/mm3 (1.2-5.4); Mean Corpuscular HGB Conc 32 % (30-34); Mean Corpuscular Volume 82 fl (79-97); Monocytes # (Auto) 0.8 K/mm3 (0.0-0.8); Monocytes % (Auto) 9.9 % (0.0-7.3); Platelet Count 179 K/mm3 (140-440); Red Cell Distribution Width 15.5 % (13.2-15.2)
[2018-09-18 04:15] LABS: Albumin 1.7 g/dL (3.9-5); Calcium 7.3 mg/dL (8.4-10.2)
--- NOTE | 2018-09-18 07:46 | Hem/Onc Progress Note ---
Assessment and Plan 1. Breast mass. As per the information available, she has had a biopsy done at [place] 3 years ago, but now Radiology shows increase in tumor, this may be a neoplastic process; however, biopsy would be needed. The patient's performance status is not very good. We will discuss with family members to see how much investigation needs to be done. 2. Pancreatic mass, body/tail, it is 7.7 cm. Gastrointestinal team has seen the patient. CA 19-9 ordered. 3. Dementia. 4. Diabetes. 5. Hypertension. 6. Hyperlipidemia. 7. The patient had hypoglycemia. 8. Renal impairment. 9. Mild thrombocytopenia. family discussion will guide - pts performance status not good rt breast mass ~ 2cm family coming on friday - as per RN IV iron - for anemia CA 19-9 - 180s - slightly high 09/15 - pt was discharged - brought back due to o2 issues 09/17 - performance status poor -- slow speech - Hospice eval an option. 09/18 - pending discharge - Patient Problems (1) Breast CA Current Visit: Yes Status: Acute Subjective Date of service: 09/18/18 Principal diagnosis: breast and pancreatic mass Interval history: pt tried to communicate - but voice very feeble Objective - Constitutional Vitals: Last Vital Signs Temp 98.6 F 09/18/18 02:28 Pulse 58 L 09/18/18 02:28 Resp 20 09/18/18 02:28 BP 132/47 09/18/18 02:28 Pulse Ox 99 09/18/18 02:28 Pain Intensity (0-10): denies any pain General appearance: no acute distress Performance status: 4-completely disabled - EENT ENT: other (looks at you) - Respiratory Respiratory effort: Positive: normal Respiratory: bilateral: diminished - Cardiovascular Heart Sounds: Present: S1 & S2 Extremities: No edema - Gastrointestinal General gastrointestinal: Present: soft, non-tender Rectal Exam: deferred - Genitourinary Female genitourinary: Present: deferred - Integumentary Integumentary: warm - Musculoskeletal Musculoskeletal: generalized weakness - Labs Lab Results: Laboratory Results - last 24 hr 09/17/18 09/17/18 09/17/18 11:15 15:58 22:21 WBC RBC Hgb Hct MCV MCH MCHC RDW Plt Count Lymph % (Auto) [place] % (Auto) Eos % (Auto) Baso % (Auto) Lymph # [place] # Eos # Baso # Seg Neutrophils % Seg Neutrophils # Sodium Potassium Chloride Carbon Dioxide Anion Gap BUN Creatinine Estimated GFR BUN/Creatinine Ratio Glucose POC Glucose 242 H 232 H 208 H Calcium Total Bilirubin AST ALT Alkaline Phosphatase Total Protein Albumin Albumin/Globulin Ratio 09/18/18 09/18/18 09/18/18 03:08 03:08 07:23 WBC 8.2 RBC 2.90 L Hgb 7.7 L Hct 23.9 L MCV 82 MCH 27 L MCHC 32 RDW 15.5 H Plt Count 179 Lymph % (Auto) 21.0 [place] % (Auto) 9.9 H Eos % (Auto) 2.6 Baso % (Auto) 0.6 Lymph # 1.7 [place] # 0.8 Eos # 0.2 Baso # 0.1 Seg Neutrophils % 65.9 Seg Neutrophils # 5.4 Sodium 143 Potassium 3.9 Chloride 109.9 H Carbon Dioxide 21 L Anion Gap 16 BUN 22 H Creatinine 1.4 H Estimated GFR 43 BUN/Creatinine Ratio 16 Glucose 125 H POC Glucose 105 Calcium 7.3 L Total Bilirubin 0.20 AST 11 ALT 9 Alkaline Phosphatase 63 Total Protein 4.9 L Albumin 1.7 L Albumin/Globulin Ratio 0.5 Medications & Allergies - Medications Allergies/Adverse Reactions: Allergies No Known Allergies Allergy (Unverified 07/13/16 09:05) Home Medications: Home Medications Medication Instructions Recorded Confirmed Last Taken Type Clopidogrel [Plavix] 75 mg PO DAILY #30 tablet 09/14/18 Unknown Rx Donepezil [Aricept] 10 mg PO QHS #30 tablet 09/14/18 Unknown Rx Folic Acid [Folvite] 1 mg PO DAILY #30 tablet 09/14/18 Unknown Rx Glimepiride [Amaryl] 1 mg PO QAM #30 tablet 09/14/18 Unknown Rx Losartan [Cozaar] 100 mg PO DAILY #30 tablet 09/14/18 Unknown Rx Mirabegron [Myrbetriq] 25 mg PO DAILY #30 tab.er.24h 09/14/18 Unknown Rx NIFEdipine [Nifedipine ER] 90 mg PO DAILY #30 tablet.er 09/14/18 Unknown Rx Pravastatin [Pravachol] 10 mg PO QHS #30 tablet 09/14/18 Unknown Rx Sodium Bicarbonate 1,300 mg PO BID #10 tablet 09/14/18 Unknown Rx hydroCHLOROthiazide [HCTZ] 25 mg PO DAILY #30 tablet 09/14/18 Unknown Rx risperiDONE [RisperDAL] 1 mg PO QHS #30 tablet 09/14/18 Unknown Rx Active Medications: Generic Name Dose Route Start Last Admin Trade Name Freq PRN Reason Stop Dose Admin Acetaminophen/Hydrocodone Bitart 1 each 09/04/18 20:49 09/04/18 22:56 [place] 5/325 PO 1 each Q8H PRN Administration Pain, Moderate (4-6) Amlodipine Besylate 10 mg 09/17/18 01:13 09/17/18 11:31 Norvasc PO Not Given QDAY PRISCA Clonidine HCl 0.1 mg 09/17/18 11:00 09/17/18 21:06 [place] PO 0.1 mg Q12HR PRISCA Administration Clopidogrel Bisulfate 75 mg 09/05/18 10:00 09/17/18 11:22 Plavix PO 75 mg DAILY [facility] Administration Dextrose 50 ml 09/05/18 10:01 D50w (25gm) Syringe IV PRN PRN Hypoglycemia Donepezil HCl 10 mg 09/04/18 22:00 09/17/18 21:07 Aricept PO 10 mg QHS PRIS[facility] Administration Enoxaparin Sodium 30 mg 09/04/18 22:00 09/17/18 21:07 Lovenox SUB-Q 30 mg QDAY@2200 PRIS[facility] Administration Folic Acid 1 mg 09/04/18 21:00 09/17/18 11:22 Folvite PO 1 mg DAILY [facility] Administration Sodium Chloride 1,000 mls @ 75 mls/hr 09/12/18 20:00 09/17/18 23:19 Nacl 0.9% 1000 Ml IV 60 mls/hr DIRECT PRIS[facility] Administration Insulin Human Lispro 0 unit 09/05/18 22:00 09/17/18 22:53 Humalog SUB-Q 2 unit ACHS PR[facility] Administration Protocol Labetalol HCl 200 mg 09/17/18 11:00 09/17/18 21:06 Normodyne PO 200 mg BID PRIS[facility] Administration Pravastatin Sodium 10 mg 09/04/18 22:00 09/17/18 21:06 Pravachol PO 10 mg QHS PRIS[facility] Administration Risperidone 1 mg 09/04/18 22:00 09/17/18 21:07 Risperdal PO 1 mg QHS PRIS[facility] Administration Sodium Bicarbonate 1,300 mg 09/12/18 22:00 09/17/18 21:06 Sodium Bicarbonate PO 1,300 mg BID PRISCA Administration
[2018-09-18] MEDS: SODIUM BICARBONATE PO SCH ×2 (09:47→22:19)
[2018-09-18] MEDS: PLAVIX PO SCH (09:47)
[2018-09-18] MEDS: NORMODYNE PO SCH ×2 (09:47→22:22)
[2018-09-18] MEDS: FOLVITE PO SCH (09:47)
[2018-09-18] MEDS: CATAPRES PO SCH ×2 (09:48→22:20)
[2018-09-18] MEDS: NORVASC PO SCH (09:49)
[2018-09-18] MEDS: HumaLOG SUB-Q SCH ×4 (09:50→22:38)
--- NOTE | 2018-09-18 09:53 | Progress Note ---
Assessment and Plan Patient is an 88-year-old lady who is well-known to me who currently resides in the past not to history of diabetes mellitus, right breast mass, pancreatic mass, dementia, hypertension, CVA, chronic kidney disease was found to be less arousable at the past not Home with a blood sugar reading of 25. She was given something to eat. EMS was called. Blood sugar improved to 60. Patient was transported to the emergency department. BUN was found to be 64 and creatinine was 2.3. As of July 2017 creatinine was 1.9. WBC was found to be 17.4. Patient was still confused. This was a portable requested. Patient is a poor historian and therefore unable to obtain any reliable history. She is unsure why she was in the hospital. She has become progressively lethargic since after admission as she has not been eating or drinking. Blood sugar has improved to normal. Kidney function worsened but improving with hydration. Discharged 09/14/18 but could not be handled by the personal assisted because high level of dependence for all ADL. Pt is off oxygen and requiring to be fed. sitting out of bed with help -Acute metabolic encephalopathy improved to base line - Pneumonia left lobe Blood cx negative so far CXR showed left lobar infiltrate. Leukocytosis improved Continue with Azithromycin and Rocephine - completed - Sepsis - from Pneumonia - resolved - Hypertension: commenced pt on Amlodipine 10 mg and Losartan 100gm Add Labetalol 200mg bid - Acute on Chronic renal failure - resolving from ATN. Nephrology following. Input appreciated - Anemia of chronic disease s/p blood transfusion. Stable Iron def and TIBC are all consistent with Anemia of chronic disease - Moderate to Severe Malnutrition Dietary consult - Dehydration - improving iv hydration Commence cautious iv hydration - T2DM SSI Consistent Carbohydrate diet - Debilitation of senility PT /OT - H/o Right breast mass Lethergic for biopsy for now Will obtain Ultrasound guided bx when more alert. Family want everything done Oncology consulted. Input appreciated Low functional status documented making aggressive tx imprudent - H/o Pancreatic mass Per CT abdomen and pelvis Called and discussed with pt's Niece, Ms Inez Michele, at [phone] who wanted every thing to be done including biopsy of breast mass and pancreatic mas s. Get record from [facility] if someone who will sign the consent is available. She had a biopsy of same breast mass 3 yrs ago GI input appreciated. Fro MRI when pt is more stable - DVT PPx with lovenox Will check labs - - Patient Problems (1) ARF (acute renal failure) Current Visit: Yes Status: Acute Qualifiers: Acute renal failure type: unspecified Qualified Code(s): N17.9 - Acute kidney failure, unspecified (2) Abdominal pain Current Visit: Yes Status: Acute Qualifiers: Abdominal location: generalized Qualified Code(s): R10.84 - Generalized abdominal pain (3) Breast CA Current Visit: Yes Status: Acute (4) Breast mass Current Visit: Yes Status: Acute (5) Diarrhea Current Visit: Yes Status: Acute (6) Hypoglycemia secondary to sulfonylurea Current Visit: Yes Status: Acute (7) Leukocytosis Current Visit: Yes Status: Acute Qualifiers: Leukocytosis type: unspecified Qualified Code(s): D72.829 - Elevated white blood cell count, unspecified Subjective Date of service: 09/18/18 Principal diagnosis: breast and pancreatic mass, metabolic encephalopathy Interval history: Lying quietly in bed. Back to baseline mentation. Awaiting placement Objective - Exam Narrative Exam: Constitutional: Alert. In no distress Head: Normocephalic atraumatic Eyes: Pupils are equal round and reactive to light Nose: No enlarged turbinates, no septal deviation. Mouth: Moist mucous membranes. Neck: Supple no thyromegaly. No bruit. No JVD Heart: Regular rate and rhythm, S1-S2 normal. No rubs murmurs or gallop Lungs: Clear to auscultation bilaterally. no rales or rhonchi Abdomen: Soft, nontender. Bowel sound are present. Extremities: No edema, no cyanosis, no clubbing. Neuro: alert. does not follow command Skin: No rashes or hyperpigmented spots Musculoskeletal system: No joint pain or swelling. Gets up only with assistance Hematological: No petechia or subcutanous hemorrhages. Immunological: No multiple septic spots on the skin Lymphatic: No generalized lymphadenopathy Psychiatry: Euthymic. Calm. - Constitutional Vitals: Vital Signs - 12hr 09/18/18 09/18/18 02:28 07:24 Temperature 98.6 F 98.2 F Pulse Rate 58 L 56 L Respiratory 20 20 Rate Blood Pressure 132/47 164/50 O2 Sat by Pulse 99 98 Oximetry - Labs CBC & Chem 7: 09/18/18 03:08 09/18/18 03:08 Labs: Abnormal lab results 09/17/18 09/17/18 09/17/18 Range/Units 11:15 15:58 22:21 RBC (3.65-5.03) M/mm3 Hgb (10.1-14.3) gm/dl Hct (30.3-42.9) % MCH (28-32) pg RDW (13.2-15.2) % [place] % (Auto) (0.0-7.3) % Chloride (98-107) mmol/L Carbon Dioxide (22-30) mmol/L BUN (7-17) mg/dL Creatinine (0.7-1.2) mg/dL Glucose (65-100) mg/dL POC Glucose 242 H 232 H 208 H (70-105) Calcium (8.4-10.2) mg/dL Total Protein (6.3-8.2) g/dL Albumin (3.9-5) g/dL 09/18/18 09/18/18 Range/Units 03:08 03:08 RBC 2.90 L (3.65-5.03) M/mm3 Hgb 7.7 L (10.1-14.3) gm/dl Hct 23.9 L (30.3-42.9) % MCH 27 L (28-32) pg RDW 15.5 H (13.2-15.2) % [place] % (Auto) 9.9 H (0.0-7.3) % Chloride 109.9 H (98-107) mmol/L Carbon Dioxide 21 L (22-30) mmol/L BUN 22 H (7-17) mg/dL Creatinine 1.4 H (0.7-1.2) mg/dL Glucose 125 H (65-100) mg/dL POC Glucose (70-105) Calcium 7.3 L (8.4-10.2) mg/dL Total Protein 4.9 L (6.3-8.2) g/dL Albumin 1.7 L (3.9-5) g/dL
[2018-09-18] MEDS: RisperDAL PO SCH (22:19)
[2018-09-18] MEDS: LOVENOX SUB-Q SCH (22:21)
[2018-09-18] MEDS: ARICEPT PO SCH (22:21)
[2018-09-18] MEDS: PRAVACHOL PO SCH (22:21)
[2018-09-19] MEDS: HumaLOG SUB-Q SCH ×4 (08:03→23:24)
[2018-09-19] MEDS: PLAVIX PO SCH (09:25)
[2018-09-19] MEDS: CATAPRES PO SCH ×2 (09:26→22:56)
[2018-09-19] MEDS: FOLVITE PO SCH (09:26)
[2018-09-19] MEDS: SODIUM BICARBONATE PO SCH ×2 (09:26→23:27)
[2018-09-19] MEDS: NORMODYNE PO SCH ×2 (09:26→22:56)
[2018-09-19] MEDS: NORVASC PO SCH (09:27)
[2018-09-19] MEDS: NACL 0.9% 1000 ML 1,000 ML IV SCH ×2 (10:35→23:59)
--- NOTE | 2018-09-19 14:57 | Progress Note ---
Assessment and Plan - Patient Problems (1) Hypoglycemia secondary to sulfonylurea Current Visit: Yes Status: Acute Plan to address problem: Blood glucose noted more stable blood sugar this morning was 175 requiring 2 units of regular insulin will continue to hold off all other diabetes medication and continue sliding scale regular insulin for now (2) ARF (acute renal failure) Current Visit: Yes Status: Acute Qualifiers: Acute renal failure type: unspecified Qualified Code(s): N17.9 - Acute kidney failure, unspecified (3) Abdominal pain Current Visit: Yes Status: Acute Qualifiers: Abdominal location: generalized Qualified Code(s): R10.84 - Generalized abdominal pain Plan to address problem: Abdominal pain ongoing noted is pancreatic cyst/mass in the pancreatic tail. We'll check amylase and lipase level for possible chronic pancreatitis (4) Leukocytosis Current Visit: Yes Status: Acute Qualifiers: Leukocytosis type: unspecified Qualified Code(s): D72.829 - Elevated white blood cell count, unspecified Plan to address problem: Worsening leukocytosis with WBC of 24,000 this morning, patient reported with low-grade fever and also with diarrhea. Was started empirically on Flagyl for presumed antibiotics and associated colitis and sent stool for C. difficile toxin antibody continue to monitor for other focus of infection. (5) Pancreatic cyst Current Visit: Yes Status: Acute (6) Breast mass Current Visit: Yes Status: Acute (7) Diarrhea Current Visit: Yes Status: Acute Subjective Date of service: 09/19/18 Principal diagnosis: breast and pancreatic mass Interval history: Covering Dr. Dr. Villalobos Patient seen and examined, chart reviewed , patient denied any symptoms beside ongoing abdominal pain ,no fever reported ,sleepy but arousable to name call Objective - Exam Narrative Exam: GENERAL: Elderly female resting comfortably in bed not in acute distress HEENT: Normocephalic, not pale not jaundiced no cyanosis. Mucous membrane is moist, no oral lesions NECK: Supple, no JVD, no thyroid enlargement, no lymphadenopathy CHEST/LUNGS: Good air exchange bilaterally, no wheeze, no rales and no rhonchi. No chest wall tenderness, percussion is normal, symmetrical chest wall. HEART/CARDIOVASCULAR: Regular rate and rhythm, S1 and S2 only, no murmur. ABDOMEN: Abdomen is soft nondistended, tenderness in the epigastrium and the periumbilical region, no guarding no rebound tenderness no palpable mass no audible bruit on auscultation of the abdomen SKIN: Warm and dry, no rash. NEURO: Awake, alert, oriented x3, speech normal. Power 5/5 in all the extremities. EXTREMITIES: No pedal edema, good peripheral pulses, no finger or toe clubbing. - Constitutional Vitals: Vital Signs - 12hr 09/19/18 09/19/18 09/19/18 07:12 09:26 09:27 Temperature 98.2 F Pulse Rate 65 65 65 Pulse Rate [ Right Radial] Respiratory 20 Rate Respiratory Rate [ Generalized] Blood Pressure 157/64 157/64 157/64 O2 Sat by Pulse 100 Oximetry 09/19/18 09/19/18 10:00 13:03 Temperature 98.0 F Pulse Rate 61 Pulse Rate [ 65 Right Radial] Respiratory 20 20 Rate Respiratory 20 Rate [ Generalized] Blood Pressure 133/70 O2 Sat by Pulse 100 100 Oximetry - Labs CBC & Chem 7: 09/18/18 03:08 09/18/18 03:08 Labs: Abnormal lab results 09/18/18 09/18/18 09/19/18 Range/Units 17:26 21:50 11:15 POC Glucose 285 H 266 H 160 H (70-105) 09/19/18 Range/Units 13:02 POC Glucose 169 H (70-105)
--- NOTE | 2018-09-19 15:41 | Hem/Onc Progress Note ---
Assessment and Plan 1. Breast mass. As per the information available, she has had a biopsy done at [facility] 3 years ago, but now Radiology shows increase in tumor, this may be a neoplastic process; however, biopsy would be needed. The patient's performance status is not very good. We will discuss with family members to see how much investigation needs to be done. 2. Pancreatic mass, body/tail, it is 7.7 cm. Gastrointestinal team has seen the patient. CA 19-9 ordered. 3. Dementia. 4. Diabetes. 5. Hypertension. 6. Hyperlipidemia. 7. The patient had hypoglycemia. 8. Renal impairment. 9. Mild thrombocytopenia. family discussion will guide - pts performance status not good rt breast mass ~ 2cm family coming on friday - as per RN IV iron - for anemia CA 19-9 - 180s - slightly high 09/15 - pt was discharged - brought back due to o2 issues 09/17 - performance status poor -- slow speech - Hospice eval an option. 09/18 - pending discharge 09/19- d/w staff reg patient - eating - Patient Problems (1) Breast CA Current Visit: Yes Status: Acute Subjective Date of service: 09/19/18 Principal diagnosis: breast and pancreatic mass Interval history: awake - speech diff to understand as pt edentulous Objective - Constitutional Vitals: Last Vital Signs Temp 98.0 F 09/19/18 13:03 Pulse 61 09/19/18 13:03 Resp 20 09/19/18 13:03 BP 133/70 09/19/18 13:03 Pulse Ox 100 09/19/18 13:03 Pain Intensity (0-10): denies any pain General appearance: no acute distress Performance status: 4-completely disabled - EENT ENT: edentulous Lymph node exam: negative cervical - Respiratory Respiratory effort: Positive: normal Respiratory: bilateral: diminished - Cardiovascular Heart Sounds: Present: S1 & S2 Extremities: No edema - Gastrointestinal General gastrointestinal: Present: soft Rectal Exam: deferred - Genitourinary Female genitourinary: Present: deferred - Musculoskeletal Musculoskeletal: generalized weakness - Neurologic Neurologic: moves all extremities - Labs Lab Results: Laboratory Results - last 24 hr 09/18/18 09/18/18 09/19/18 17:26 21:50 07:03 POC Glucose 285 H 266 H 90 09/19/18 09/19/18 11:15 13:02 POC Glucose 160 H 169 H Medications & Allergies - Medications Allergies/Adverse Reactions: Allergies No Known Allergies Allergy (Unverified 07/13/16 09:05) Home Medications: Home Medications Medication Instructions Recorded Confirmed Last Taken Type Clopidogrel [Plavix] 75 mg PO DAILY #30 tablet 09/14/18 Unknown Rx Donepezil [Aricept] 10 mg PO QHS #30 tablet 09/14/18 Unknown Rx Folic Acid [Folvite] 1 mg PO DAILY #30 tablet 09/14/18 Unknown Rx Glimepiride [Amaryl] 1 mg PO QAM #30 tablet 09/14/18 Unknown Rx Losartan [Cozaar] 100 mg PO DAILY #30 tablet 09/14/18 Unknown Rx Mirabegron [Myrbetriq] 25 mg PO DAILY #30 tab.er.24h 09/14/18 Unknown Rx NIFEdipine [Nifedipine ER] 90 mg PO DAILY #30 tablet.er 09/14/18 Unknown Rx Pravastatin [Pravachol] 10 mg PO QHS #30 tablet 09/14/18 Unknown Rx Sodium Bicarbonate 1,300 mg PO BID #10 tablet 09/14/18 Unknown Rx hydroCHLOROthiazide [HCTZ] 25 mg PO DAILY #30 tablet 09/14/18 Unknown Rx risperiDONE [RisperDAL] 1 mg PO QHS #30 tablet 09/14/18 Unknown Rx Active Medications: Generic Name Dose Route Start Last Admin Trade Name Freq PRN Reason Stop Dose Admin Acetaminophen/Hydrocodone Bitart 1 each 09/04/18 20:49 09/04/18 22:56 [place] 5/325 PO 1 each Q8H PRN Administration Pain, Moderate (4-6) Amlodipine Besylate 10 mg 09/17/18 01:13 09/19/18 09:27 Norvasc PO 10 mg QDAY PRISCA Administration Clonidine HCl 0.1 mg 09/17/18 11:00 09/19/18 09:26 Catapres PO 0.1 mg Q12HR PRISCA Administration Clopidogrel Bisulfate 75 mg 09/05/18 10:00 09/19/18 09:25 Plavix PO 75 mg DAILY PRISCA Administration Dextrose 50 ml 09/05/18 10:01 D50w (25gm) Syringe IV PRN PRN Hypoglycemia Donepezil HCl 10 mg 09/04/18 22:00 09/18/18 22:21 Aricept PO 10 mg QHS PRISCA Administration Enoxaparin Sodium 30 mg 09/04/18 22:00 09/18/18 22:21 Lovenox SUB-Q 30 mg QDAY@2200 PRISCA Administration Folic Acid 1 mg 09/04/18 21:00 09/19/18 09:26 Folvite PO 1 mg DAILY PRISCA Administration Sodium Chloride 1,000 mls @ 75 mls/hr 09/12/18 20:00 09/19/18 10:35 Nacl 0.9% 1000 Ml IV 60 mls/hr DIRECT PRISCA Administration Insulin Human Lispro 0 unit 09/05/18 22:00 09/19/18 11:58 Humalog SUB-Q 1 unit ACHS PRISCA Administration Protocol Labetalol HCl 200 mg 09/17/18 11:00 09/19/18 09:26 Normodyne PO 200 mg BID PRISCA Administration Pravastatin Sodium 10 mg 09/04/18 22:00 09/18/18 22:21 Pravachol PO 10 mg QHS PRISCA Administration Risperidone 1 mg 09/04/18 22:00 09/18/18 22:19 Risperdal PO 1 mg QHS PRISCA Administration Sodium Bicarbonate 1,300 mg 09/12/18 22:00 09/19/18 09:26 Sodium Bicarbonate PO 1,300 mg BID PRISCA Administration
[2018-09-19] MEDS: RisperDAL PO SCH (22:56)
[2018-09-19] MEDS: PRAVACHOL PO SCH (22:56)
[2018-09-19] MEDS: ARICEPT PO SCH (22:57)
[2018-09-19] MEDS: LOVENOX SUB-Q SCH (22:57)
[2018-09-20] MEDS: HumaLOG SUB-Q SCH ×4 (08:19→23:04)
[2018-09-20] MEDS: PLAVIX PO SCH (09:29)
[2018-09-20] MEDS: NORVASC PO SCH (09:29)
[2018-09-20] MEDS: SODIUM BICARBONATE PO SCH ×2 (09:29→22:49)
[2018-09-20] MEDS: NORMODYNE PO SCH ×2 (09:30→22:50)
[2018-09-20] MEDS: FOLVITE PO SCH (09:30)
[2018-09-20] MEDS: CATAPRES PO SCH ×2 (09:31→22:50)
--- NOTE | 2018-09-20 12:44 | Progress Note ---
Assessment and Plan - Patient Problems (1) Hypoglycemia secondary to sulfonylurea Current Visit: Yes Status: Acute Plan to address problem: Blood glucose noted more stable blood sugar this morning was 175 requiring 2 units of regular insulin will continue to hold off all other diabetes medication and continue sliding scale regular insulin for now (2) ARF (acute renal failure) Current Visit: Yes Status: Acute Qualifiers: Acute renal failure type: unspecified Qualified Code(s): N17.9 - Acute kidney failure, unspecified Plan to address problem: BUN and creatinine noted continues to trend upwards. Renal consult noted with thanks recommendations as suggested. Will increase hydration with normal saline at 100 mL per hour and continue to monitor urinary output and BUN and creatinine. Follow-up on pending renal ultrasound as ordered per nephrology (3) Abdominal pain Current Visit: Yes Status: Acute Qualifiers: Abdominal location: generalized Qualified Code(s): R10.84 - Generalized abdominal pain Plan to address problem: Abdominal pain ongoing noted is pancreatic cyst/mass in the pancreatic tail. We'll check amylase and lipase level for possible chronic pancreatitis (4) Leukocytosis Current Visit: Yes Status: Acute Qualifiers: Leukocytosis type: unspecified Qualified Code(s): D72.829 - Elevated white blood cell count, unspecified Plan to address problem: Worsening leukocytosis with WBC of 24,000 this morning, patient reported with low-grade fever and also with diarrhea. Was started empirically on Flagyl for presumed antibiotics and associated colitis and sent stool for C. difficile toxin antibody continue to monitor for other focus of infection. (5) Pancreatic cyst Current Visit: Yes Status: Acute Plan to address problem: [place] this cyst will need further evaluation and possible chronic pancreatitis. We'll check amylase and lipase level and possible GI consult for further evaluation (6) Breast mass Current Visit: Yes Status: Acute Plan to address problem: Breast mass possibly cancerous noted to have increased from previous evaluation. Oncologist ongoing evaluation and comments noted (7) Diarrhea Current Visit: Yes Status: Acute Plan to address problem: Possible C. difficile colitis Will empirically start patient on Flagyl and continue to monitor panculture if fever develops. Subjective Date of service: 09/20/18 Principal diagnosis: breast and pancreatic mass Interval history: Covering Dr Villalobos . Patient seen and examined , chart reviewed ,patient more awake today and denied any new symptoms , no fever reported by nursing staff but oral intake is poor . Objective - Exam Narrative Exam: GENERAL: Elderly female resting comfortably in bed not in acute distress HEENT: Normocephalic, not pale not jaundiced no cyanosis. Mucous membrane is moist, no oral lesions NECK: Supple, no JVD, no thyroid enlargement, no lymphadenopathy CHEST/LUNGS: Good air exchange bilaterally, no wheeze, no rales and no rhonchi. No chest wall tenderness, percussion is normal, symmetrical chest wall. HEART/CARDIOVASCULAR: Regular rate and rhythm, S1 and S2 only, no murmur. ABDOMEN: Abdomen is soft nondistended, tenderness in the epigastrium and the periumbilical region, no guarding no rebound tenderness no palpable mass no audible bruit on auscultation of the abdomen SKIN: Warm and dry, no rash. NEURO: Awake, alert, oriented x3, speech normal. Power 5/5 in all the extremities. EXTREMITIES: No pedal edema, good peripheral pulses, no finger or toe clubbing. - Constitutional Vitals: Vital Signs - 12hr 09/20/18 09/20/18 09/20/18 02:13 07:21 09:29 Temperature 98.3 F 98.6 F Pulse Rate 60 62 66 Respiratory 18 18 Rate Blood Pressure 164/53 159/44 148/41 O2 Sat by Pulse 100 100 Oximetry 09/20/18 09/20/18 09/20/18 09:30 09:31 10:00 Temperature Pulse Rate 66 66 Respiratory 18 Rate Blood Pressure 148/41 148/41 O2 Sat by Pulse 100 Oximetry - Labs CBC & Chem 7: 09/18/18 03:08 09/18/18 03:08 Labs: Abnormal lab results 09/19/18 09/19/18 09/19/18 Range/Units 13:02 16:31 21:49 POC Glucose 169 H 115 H 196 H (70-105) 09/20/18 09/20/18 Range/Units 07:30 11:21 POC Glucose 129 H 223 H (70-105)
[2018-09-20] MEDS: NACL 0.9% 1000 ML 1,000 ML IV SCH (16:38)
--- NOTE | 2018-09-20 21:45 | Hem/Onc Progress Note ---
Assessment and Plan 1. Breast mass. As per the information available, she has had a biopsy done at [facility] 3 years ago, but now Radiology shows increase in tumor, this may be a neoplastic process; however, biopsy would be needed. The patient's performance status is not very good. We will discuss with family members to see how much investigation needs to be done. 2. Pancreatic mass, body/tail, it is 7.7 cm. Gastrointestinal team has seen the patient. CA 19-9 ordered. 3. Dementia. 4. Diabetes. 5. Hypertension. 6. Hyperlipidemia. 7. The patient had hypoglycemia. 8. Renal impairment. 9. Mild thrombocytopenia. family discussion will guide - pts performance status not good rt breast mass ~ 2cm family coming on friday - as per RN IV iron - for anemia CA -9 - 180s - slightly high 09/15 - pt was discharged - brought back due to o2 issues 09/17 - performance status poor -- slow speech - Hospice eval an option. 09/18 - pending discharge 09/19- d/w staff reg patient - eating 09/20 - pending placement - Patient Problems (1) Breast CA Current Visit: Yes Status: Acute Subjective Date of service: 09/20/18 Principal diagnosis: breast - pancreatic mass Objective - Constitutional Vitals: Last Vital Signs Temp 98.0 F 09/20/18 19:40 Pulse 72 09/20/18 19:40 Resp 20 09/20/18 19:40 BP 158/58 09/20/18 20:02 Pulse Ox 100 09/20/18 19:40 Pain Intensity (0-10): denies any pain General appearance: no acute distress Performance status: 4-completely disabled - EENT ENT: edentulous Lymph node exam: negative cervical - Respiratory Respiratory effort: Positive: normal Respiratory: bilateral: diminished - Cardiovascular Heart Sounds: Present: S1 & S2 Extremities: No edema - Gastrointestinal General gastrointestinal: Present: soft, non-tender Rectal Exam: deferred - Genitourinary Female genitourinary: Present: deferred - Integumentary Integumentary: warm - Musculoskeletal Musculoskeletal: generalized weakness - Labs Lab Results: Laboratory Results - last 24 hr 09/19/18 09/20/18 09/20/18 21:49 07:30 11:21 POC Glucose 196 H 129 H 223 H 09/20/18 09/20/18 16:18 21:15 POC Glucose 249 H 168 H Medications & Allergies - Medications Allergies/Adverse Reactions: Allergies No Known Allergies Allergy (Unverified 07/13/16 09:05) Home Medications: Home Medications Medication Instructions Recorded Confirmed Last Taken Type Clopidogrel [Plavix] 75 mg PO DAILY #30 tablet 09/14/18 Unknown Rx Donepezil [Aricept] 10 mg PO QHS #30 tablet 09/14/18 Unknown Rx Folic Acid [Folvite] 1 mg PO DAILY #30 tablet 09/14/18 Unknown Rx Glimepiride [Amaryl] 1 mg PO QAM #30 tablet 09/14/18 Unknown Rx Losartan [Cozaar] 100 mg PO DAILY #30 tablet 09/14/18 Unknown Rx Mirabegron [Myrbetriq] 25 mg PO DAILY #30 tab.er.24h 09/14/18 Unknown Rx NIFEdipine [Nifedipine ER] 90 mg PO DAILY #30 tablet.er 09/14/18 Unknown Rx Pravastatin [Pravachol] 10 mg PO QHS #30 tablet 09/14/18 Unknown Rx Sodium Bicarbonate 1,300 mg PO BID #10 tablet 09/14/18 Unknown Rx hydroCHLOROthiazide [HCTZ] 25 mg PO DAILY #30 tablet 09/14/18 Unknown Rx risperiDONE [RisperDAL] 1 mg PO QHS #30 tablet 09/14/18 Unknown Rx Active Medications: Generic Name Dose Route Start Last Admin Trade Name Freq PRN Reason Stop Dose Admin Acetaminophen/Hydrocodone Bitart 1 each 09/04/18 20:49 09/04/18 22:56 [place] 5/325 PO 1 each Q8H PRN Administration Pain, Moderate (4-6) Amlodipine Besylate 10 mg 09/17/18 01:13 09/20/18 09:29 Norvasc PO 10 mg QDAY PRISCA Administration Clonidine HCl 0.1 mg 09/17/18 11:00 09/20/18 09:31 Catapres PO Not Given Q12HR PRISCA Clopidogrel Bisulfate 75 mg 09/05/18 10:00 09/20/18 09:29 Plavix PO 75 mg DAILY PRISCA Administration Dextrose 50 ml 09/05/18 10:01 D50w (25gm) Syringe IV PRN PRN Hypoglycemia Donepezil HCl 10 mg 09/04/18 22:00 09/19/18 22:57 Aricept PO 10 mg QHS PRISCA Administration Enoxaparin Sodium 30 mg 09/04/18 22:00 09/19/18 22:57 Lovenox SUB-Q 30 mg QDAY@2200 PRISCA Administration Folic Acid 1 mg 09/04/18 21:00 09/20/18 09:30 Folvite PO 1 mg DAILY PRISCA Administration Sodium Chloride 1,000 mls @ 75 mls/hr 09/12/18 20:00 09/20/18 16:38 Nacl 0.9% 1000 Ml IV 60 mls/hr DIRECT PRISCA Administration Insulin Human Lispro 0 unit 09/05/18 22:00 09/20/18 16:36 Humalog SUB-Q 2 unit ACHS PRISCA Administration Protocol Labetalol HCl 200 mg 09/17/18 11:00 09/20/18 09:30 Normodyne PO Not Given BID PRISCA Pravastatin Sodium 10 mg 09/04/18 22:00 09/19/18 22:56 Pravachol PO 10 mg QHS PRISCA Administration Risperidone 1 mg 09/04/18 22:00 09/19/18 22:56 Risperdal PO 1 mg QHS PRISCA Administration Sodium Bicarbonate 1,300 mg 09/12/18 22:00 09/20/18 09:29 Sodium Bicarbonate PO 1,300 mg BID PRISCA Administration
[2018-09-20] MEDS: RisperDAL PO SCH (22:49)
[2018-09-20] MEDS: ARICEPT PO SCH (22:49)
[2018-09-20] MEDS: LOVENOX SUB-Q SCH (22:50)
[2018-09-20] MEDS: PRAVACHOL PO SCH (23:03)
[2018-09-21 06:53] LABS: Calcium 7.1 mg/dL (8.4-10.2)
[2018-09-21] MEDS: HumaLOG SUB-Q SCH ×2 (08:01→11:57)
--- NOTE | 2018-09-21 08:11 | Hem/Onc Progress Note ---
Assessment and Plan 1. Breast mass. As per the information available, she has had a biopsy done at [place] 3 years ago, but now Radiology shows increase in tumor, this may be a neoplastic process; however, biopsy would be needed. The patient's performance status is not very good. We will discuss with family members to see how much investigation needs to be done. 2. Pancreatic mass, body/tail, it is 7.7 cm. Gastrointestinal team has seen the patient. CA 19-9 ordered. 3. Dementia. 4. Diabetes. 5. Hypertension. 6. Hyperlipidemia. 7. The patient had hypoglycemia. 8. Renal impairment. 9. Mild thrombocytopenia. family discussion will guide - pts performance status not good rt breast mass ~ 2cm family coming on friday - as per RN IV iron - for anemia CA -9 - 180s - slightly high 09/15 - pt was discharged - brought back due to o2 issues 09/17 - performance status poor -- slow speech - Hospice eval an option. 09/18 - pending discharge 09/19- d/w staff reg patient - eating 09/21 - pending placement - Patient Problems (1) Breast CA Status: Acute Subjective Date of service: 09/21/18 Principal diagnosis: breast mass Interval history: nil acute - d/w RN Objective - Constitutional Vitals: Last Vital Signs Temp 98.0 F 09/21/18 07:33 Pulse 59 L 09/21/18 07:33 Resp 20 09/21/18 07:49 BP 153/56 09/21/18 07:33 Pulse Ox 100 09/21/18 07:49 Pain Intensity (0-10): denies any pain General appearance: no acute distress Performance status: 4-completely disabled - EENT ENT: edentulous Lymph node exam: negative cervical - Respiratory Respiratory effort: Positive: normal Respiratory: bilateral: diminished - Cardiovascular Heart Sounds: Present: S1 & S2 Extremities: No edema - Gastrointestinal General gastrointestinal: Present: soft, non-tender Rectal Exam: deferred - Genitourinary Female genitourinary: Present: deferred - Integumentary Integumentary: warm - Musculoskeletal Musculoskeletal: generalized weakness - Neurologic Neurologic: moves all extremities - Labs Lab Results: Laboratory Results - last 24 hr 09/20/18 09/20/18 09/20/18 11:21 16:18 21:15 Sodium Potassium Chloride Carbon Dioxide Anion Gap BUN Creatinine Estimated GFR BUN/Creatinine Ratio Glucose POC Glucose 223 H 249 H 168 H Calcium 09/21/18 09/21/18 06:06 07:43 Sodium 141 Potassium 4.3 Chloride 111.5 H Carbon Dioxide 24 Anion Gap 10 BUN 20 H Creatinine 1.2 Estimated GFR 52 BUN/Creatinine Ratio 17 Glucose 86 POC Glucose 94 Calcium 7.1 L Medications & Allergies - Medications Allergies/Adverse Reactions: Allergies No Known Allergies Allergy (Unverified 07/13/16 09:05) Home Medications: Home Medications Medication Instructions Recorded Confirmed Last Taken Type RX: Clopidogrel [Plavix] 75 mg PO DAILY #30 tablet 09/14/18 Unknown Rx RX: Donepezil [Aricept] 10 mg PO QHS #30 tablet 09/14/18 Unknown Rx RX: Folic Acid [Folvite] 1 mg PO DAILY #30 tablet 09/14/18 Unknown Rx RX: Glimepiride [Amaryl] 1 mg PO QAM #30 tablet 09/14/18 Unknown Rx RX: Losartan [Cozaar] 100 mg PO DAILY #30 tablet 09/14/18 Unknown Rx RX: Mirabegron [Myrbetriq] 25 mg PO DAILY #30 tab.er.24h 09/14/18 Unknown Rx RX: NIFEdipine [Nifedipine ER] 90 mg PO DAILY #30 tablet.er 09/14/18 Unknown Rx RX: Pravastatin [Pravachol] 10 mg PO QHS #30 tablet 09/14/18 Unknown Rx RX: Sodium Bicarbonate 1,300 mg PO BID #10 tablet 09/14/18 Unknown Rx RX: hydroCHLOROthiazide [HCTZ] 25 mg PO DAILY #30 tablet 09/14/18 Unknown Rx RX: risperiDONE [RisperDAL] 1 mg PO QHS #30 tablet 09/14/18 Unknown Rx RX: amLODIPine [Norvasc] 10 mg PO QDAY tablet 09/21/18 Unknown Rx RX: cloNIDine [Catapres] 0.1 mg PO Q12HR tablet 09/21/18 Unknown Rx Active Medications: Generic Name Dose Route Start Last Admin Trade Name Freq PRN Reason Stop Dose Admin Acetaminophen/Hydrocodone Bitart 1 each 09/04/18 20:49 09/04/18 22:56 [place] 5/325 PO 1 each Q8H PRN Administration Pain, Moderate (4-6) Amlodipine Besylate 10 mg 09/17/18 01:13 09/20/18 09:29 Norvasc PO 10 mg QDAY PRISCA Administration Clonidine HCl 0.1 mg 09/17/18 11:00 09/20/18 22:50 Catapres PO 0.1 mg Q12HR PRISCA Administration Clopidogrel Bisulfate 75 mg 09/05/18 10:00 09/20/18 09:29 Plavix PO 75 mg DAILY PRISCA Administration Dextrose 50 ml 09/05/18 10:01 D50w (25gm) Syringe IV PRN PRN Hypoglycemia Donepezil HCl 10 mg 09/04/18 22:00 09/20/18 22:49 Aricept PO 10 mg QHS PRISCA Administration Enoxaparin Sodium 30 mg 09/04/18 22:00 09/20/18 22:50 Lovenox SUB-Q 30 mg QDAY@2200 PRISCA Administration Folic Acid 1 mg 09/04/18 21:00 09/20/18 09:30 Folvite PO 1 mg DAILY PRISCA Administration Sodium Chloride 1,000 mls @ 75 mls/hr 09/12/18 20:00 09/20/18 16:38 Nacl 0.9% 1000 Ml IV 60 mls/hr DIRECT PRISCA Administration Insulin Human Lispro 0 unit 09/05/18 22:00 09/20/18 23:04 Humalog SUB-Q 1 unit ACHS PRISCA Administration Protocol Labetalol HCl 200 mg 09/17/18 11:00 09/20/18 22:50 Normodyne PO 200 mg BID PRISCA Administration Pravastatin Sodium 10 mg 09/04/18 22:00 09/20/18 23:03 Pravachol PO 10 mg QHS PRISCA Administration Risperidone 1 mg 09/04/18 22:00 09/20/18 22:49 Risperdal PO 1 mg QHS PRISCA Administration Sodium Bicarbonate 1,300 mg 09/12/18 22:00 09/20/18 22:49 Sodium Bicarbonate PO 1,300 mg BID PRISCA Administration
[2018-09-21] MEDS: SODIUM BICARBONATE PO SCH (09:02)
[2018-09-21] MEDS: PLAVIX PO SCH (09:03)
[2018-09-21] MEDS: FOLVITE PO SCH (09:03)
[2018-09-21] MEDS: NORMODYNE PO SCH (09:03)
[2018-09-21] MEDS: NORVASC PO SCH (09:03)
[2018-09-21] MEDS: CATAPRES PO SCH (09:04)
[2018-09-21] MEDS: NACL 0.9% 1000 ML 1,000 ML IV SCH (09:06)
[2018-09-21] MEDS ORDERED: FERROUS SULFATE PO SCH (10:00)
--- NOTE | 2018-09-21 10:05 | Progress Note ---
Assessment and Plan Patient is an 88-year-old lady who is well-known to me who currently resides in the past not to history of diabetes mellitus, right breast mass, pancreatic mass, dementia, hypertension, CVA, chronic kidney disease was found to be less arousable at the past not Home with a blood sugar reading of 25. She was given something to eat. EMS was called. Blood sugar improved to 60. Patient was transported to the emergency department. BUN was found to be 64 and creatinine was 2.3. As of July 2017 creatinine was 1.9. WBC was found to be 17.4. Patient was still confused. This was a portable requested. Patient is a poor historian and therefore unable to obtain any reliable history. She is unsure why she was in the hospital. She has become progressively lethargic since after admission as she has not been eating or drinking. Blood sugar has improved to normal. Kidney function worsened but improving with hydration. Discharged 09/14/18 but could not be handled by the personal senior care because high level of dependence for all ADL. Pt is off oxygen and requiring to be fed. sitting out of bed with help -Acute metabolic encephalopathy improved to base line - Pneumonia left lobe Blood cx negative so far CXR showed left lobar infiltrate. Leukocytosis improved Continue with Azithromycin and Rocephine - completed - Sepsis - from Pneumonia - resolved - Hypertension: commenced pt on Amlodipine 10 mg and Losartan 100gm Add Labetalol 200mg bid - Acute on Chronic renal failure - resolving from ATN. Nephrology following. Input appreciated - Anemia of chronic disease s/p blood transfusion. Stable Iron def and TIBC are all consistent with Anemia of chronic disease - Moderate to Severe Malnutrition Dietary consult - Dehydration - improving iv hydration Commence cautious iv hydration - T2DM SSI Consistent Carbohydrate diet - Debilitation of senility PT /OT - H/o Right breast mass Lethergic for biopsy for now Will obtain Ultrasound guided bx when more alert. Family want everything done Oncology consulted. Input appreciated Low functional status documented making aggressive tx imprudent - H/o Pancreatic mass Per CT abdomen and pelvis Called and discussed with pt's Niece, Ms Inez Michele, at [phone] who wanted every thing to be done including biopsy of breast mass and pancreatic mas s. Get record from [facility] if someone who will sign the consent is available. She had a biopsy of same breast mass 3 yrs ago GI input appreciated. Fro MRI when pt is more stable - DVT PPx with lovenox Awaiting placement. Had discussed with case manger. Looking for a SNF of preference per family ie [place] area - - Patient Problems (1) ARF (acute renal failure) Current Visit: Yes Status: Acute Qualifiers: Acute renal failure type: unspecified Qualified Code(s): N17.9 - Acute kidney failure, unspecified (2) Abdominal pain Current Visit: Yes Status: Acute Qualifiers: Abdominal location: generalized Qualified Code(s): R10.84 - Generalized abdominal pain (3) Breast CA Current Visit: Yes Status: Acute (4) Breast mass Current Visit: Yes Status: Acute (5) Diarrhea Current Visit: Yes Status: Acute (6) Hypoglycemia secondary to sulfonylurea Current Visit: Yes Status: Acute (7) Leukocytosis Current Visit: Yes Status: Acute Qualifiers: Leukocytosis type: unspecified Qualified Code(s): D72.829 - Elevated white blood cell count, unspecified Subjective Date of service: 09/21/18 Principal diagnosis: breast - pancreatic mass Interval history: Lying quietly in bed. Back to baseline mentation. Awaiting placement Objective - Exam Narrative Exam: Constitutional: Alert. In no distress Head: Normocephalic atraumatic Eyes: Pupils are equal round and reactive to light Nose: No enlarged turbinates, no septal deviation. Mouth: Moist mucous membranes. Neck: Supple no thyromegaly. No bruit. No JVD Heart: Regular rate and rhythm, S1-S2 normal. No rubs murmurs or gallop Lungs: Clear to auscultation bilaterally. no rales or rhonchi Abdomen: Soft, nontender. Bowel sound are present. Extremities: No edema, no cyanosis, no clubbing. Neuro: alert. does not follow command Skin: No rashes or hyperpigmented spots Musculoskeletal system: No joint pain or swelling. Gets up only with assistance Hematological: No petechia or subcutanous hemorrhages. Immunological: No multiple septic spots on the skin Lymphatic: No generalized lymphadenopathy Psychiatry: Euthymic. Calm. - Constitutional Vitals: Vital Signs - 12hr 09/20/18 09/21/18 09/21/18 22:50 02:18 07:33 Temperature 98.9 F 98.0 F Pulse Rate 72 62 59 L Respiratory 20 20 Rate Blood Pressure 158/58 136/48 153/56 O2 Sat by Pulse 100 100 Oximetry 09/21/18 09/21/18 07:49 09:03 Temperature Pulse Rate 66 Respiratory 20 Rate Blood Pressure 135/68 O2 Sat by Pulse 100 Oximetry - Labs CBC & Chem 7: 09/18/18 03:08 09/21/18 06:06 Labs: Abnormal lab results 09/20/18 09/20/18 09/20/18 Range/Units 11:21 16:18 21:15 Chloride (98-107) mmol/L BUN (7-17) mg/dL POC Glucose 223 H 249 H 168 H (70-105) Calcium (8.4-10.2) mg/dL 09/21/18 Range/Units 06:06 Chloride 111.5 H (98-107) mmol/L BUN 20 H (7-17) mg/dL POC Glucose (70-105) Calcium 7.1 L (8.4-10.2) mg/dL
[2018-09-21 13:18] VITALS: BP 147/62
--- NOTE | 2018-09-21 14:58 | Discharge Summary ---
Providers - Providers Date of Admission: 09/04/18 12:47 Date of discharge: 09/21/18 Attending physician: ADE DOMINGO 09/05/18 10:20 Consult to Physician [CONS] Routine Comment: Consulting Provider: ARMOND PARR Physician Instructions: Reason For Exam: Acute on chronic renal failure admitted with hypog 09/08/18 09:41 Consult to Physician [CONS] Routine Comment: called office spoke to margo/darin Consulting Provider: ALFRED SOSA Physician Instructions: Reason For Exam: breat mass 09/08/18 09:42 Consult to Physician [CONS] Routine Comment: called office spoke to deysi/darin Consulting Provider: DIPTI KWOK Physician Instructions: 88y/o w/ pancreatic mass.Fam wants everything done Reason For Exam: Pancreatic mass 09/09/18 08:06 Physical Therapy Evaluation and Treat [CONS] Routine Comment: Reason For Exam: Generalized weakness 09/10/18 08:39 Consult to Physician [CONS] Routine Comment: Consulting Provider: FIDE PACK Physician Instructions: Family wants everything done Reason For Exam: right breast mass Primary care physician: TILT [facility]IVER Hospitalization Reason for admission: Acute on chronic renal failure, metabolic encephalpathy, DM Condition: Fair Pertinent studies: CT abdoman and pelvis, Renal US Procedures: none Hospital course: Patient is an 88-year-old lady who is well-known to me who currently resides in the past not to history of diabetes mellitus, right breast mass, pancreatic mas s, dementia, hypertension, CVA, chronic kidney disease was found to be less arousable at the past not Home with a blood sugar reading of 25. She was given something to eat. EMS was called. Blood sugar improved to 60. Patient was transported to the emergency department. BUN was found to be 64 and creatinine was 2.3. As of July 2017 creatinine was 1.9. WBC was found to be 17.4. Patient was still confused. This was a portable requested. Patient is a poor historian and therefore unable to obtain any reliable history. She is unsure why she was in the hospital. She has become progressively lethargic since after admission as she has not been eating or drinking. Blood sugar has improved to normal. Kidney function worsened but improving with hydration. On admission was commenced on iv hydration renal US was remarkable for chronic kidney disease, improve with vi hydration. mentation improved and pt was commenced on oral feeding. Discussed at length with pt's niece regarding right breast mas and pancreatic mass for which oncology consult as obtained. Pt with low performance status for further w/u. Will f/u on out patiert bsis for w/u of both massed with GI and oncologist.. Discussed with pt's Niece regarding discharge plan and need to f/u with oncologist and GI. to f/u with PCP in 3-5 days, oncolodgit in 2 weeks and GI in 10 days. Pt can no longer be taken care of in a [facility] and is therfreo being dischrged to SNF Disposition: DC/TX-03 SNF W [facility] CERT - Discharge Diagnoses (1) ARF (acute renal failure) Status: Acute Qualifiers: Acute renal failure type: unspecified Qualified Code(s): N17.9 - Acute kidney failure, unspecified (2) Abdominal pain Status: Acute Qualifiers: Abdominal location: generalized Qualified Code(s): R10.84 - Generalized abdominal pain (3) Breast CA Status: Acute (4) Breast mass Status: Acute (5) Diarrhea Status: Acute (6) Hypoglycemia secondary to sulfonylurea Status: Acute (7) Leukocytosis Status: Acute Qualifiers: Leukocytosis type: unspecified Qualified Code(s): D72.829 - Elevated white blood cell count, unspecified Core Measure Documentation - Palliative Care Palliative Care/ Comfort Measures: Not Applicable - Core Measures Any of the following diagnoses?: none Exam - Physical Exam Narrative exam: Constitutional: Alert.In no distress Head: Normocephalic atraumatic Eyes: Pupils are equal round and reactive to light Nose: No enlarged turbinates, no septal deviation. Mouth: Moist mucous membranes. Neck: Supple no thyromegaly. No bruit. No JVD Heart: Regular rate and rhythm, S1-S2 normal. No rubs murmurs or gallop Lungs: Clear to auscultation bilaterally. no rales or rhonchi Abdomen: Soft, nontender. Bowel sound are present. Extremities: No edema, no cyanosis, no clubbing. Neuro: alert. does not follow command Skin: No rashes or hyperpigmented spots Musculoskeletal system: No joint pain or swelling. Gets up only with assistance Hematological: No petechia or subcutanous hemorrhages. Immunological: No multiple septic spots on the skin Lymphatic: No generalized lymphadenopathy Psychiatry: Euthymic. Calm. - Constitutional Vitals: Temp Pulse Resp BP Pulse Ox 98.2 F 67 20 147/62 97 09/21/18 12:47 09/21/18 12:47 09/21/18 12:47 09/21/18 12:47 09/21/18 12:47 Plan Activity: up only with assistance, fall precautions Weight Bearing Status: Non-Weight Bearing Diet: diabetic Follow up with: PRIMARY CARE, [Primary Care Provider] - 3-5 Days Prescriptions: Clopidogrel [Plavix] 75 mg PO DAILY #30 tablet Donepezil [Aricept] 10 mg PO QHS #30 tablet Folic Acid [Folvite] 1 mg PO DAILY #30 tablet Glimepiride [Amaryl] 1 mg PO QAM #30 tablet hydroCHLOROthiazide [HCTZ] 25 mg PO DAILY #30 tablet Losartan [Cozaar] 100 mg PO DAILY #30 tablet Mirabegron [Myrbetriq] 25 mg PO DAILY #30 tab.er.24h NIFEdipine [Nifedipine ER] 90 mg PO DAILY #30 tablet.er Pravastatin [Pravachol] 10 mg PO QHS #30 tablet risperiDONE [RisperDAL] 1 mg PO QHS #30 tablet Sodium Bicarbonate 1,300 mg PO BID #10 tablet
== END 2018-09-21 17:00 | DRG 871 ==
LOC: ED 10:27 → 2B-ACE 12:47
PROVIDERS: ADMIT Family Medicine; ATTEND Family Medicine
PROC: 3E0234Z Introduction of Serum, Toxoid and Vaccine into Muscle, Percutaneous Approach (ICD-10-PCS; principal; 2018-09-05)
PROC: 30233N1 Transfusion of Nonautologous Red Blood Cells into Peripheral Vein, Percutaneous Approach (ICD-10-PCS; 2018-09-08)
DX: A41.9 Sepsis, unspecified organism (principal); G93.41 Metabolic encephalopathy; N17.0 Acute kidney failure with tubular necrosis; J18.9 Pneumonia, unspecified organism; E43 Unspecified severe protein-calorie malnutrition; E87.2 Acidosis; K86.2 Cyst of pancreas; I50.30 Unspecified diastolic (congestive) heart failure; I13.0 Hypertensive heart and chronic kidney disease with heart failure and stage 1 through stage 4 chronic kidney disease, or unspecified chronic kidney disease; E11.649 Type 2 diabetes mellitus with hypoglycemia without coma; E86.0 Dehydration; N63.0 Unspecified lump in unspecified breast; D69.6 Thrombocytopenia, unspecified; E11.22 Type 2 diabetes mellitus with diabetic chronic kidney disease; T38.3X5A Adverse effect of insulin and oral hypoglycemic [antidiabetic] drugs, initial encounter; D63.8 Anemia in other chronic diseases classified elsewhere; F31.9 Bipolar disorder, unspecified; Z86.73 Personal history of transient ischemic attack (TIA), and cerebral infarction without residual deficits; Z79.4 Long term (current) use of insulin; Z79.899 Other long term (current) drug therapy; Z23 Encounter for immunization; Z68.27 Body mass index [BMI] 27.0-27.9, adult; Z87.891 Personal history of nicotine dependence; Y92.89 Other specified places as the place of occurrence of the external cause
CPT/HCPCS: 36415; 71046; 74022; 74176; 76770; 80048; 80053; 80061; 81001; 82106; 82378; 82550; 82553; 82570; 82607; 82747; 82805; 82962; 83550; 83690; 83735; 83930; 84100; 84300; 84484; 84550; 85007; 85014; 85018; 85025; 85610; 85730; 86301; 86850; 86900; 86901; 86920; 87040; 87086; 87324; 90471; 90732; 93005; 93010; 96360; G0378; A9270-GY; G0008; G0009; J0696; J1650; J1815; J2916; J3475; J7030; J7040; P9016

== ENCOUNTER 2018-09-14 19:44 | Emergency (ER) | payer MEDICARE ==
--- NOTE | 2018-09-14 20:10 | Emergency Department Report ---
HPI - General Chief Complaint: Hyperglycemia Time Seen by Provider: 09/14/18 20:02 - HPI HPI: Room 3 The patient is an 88-year-old female presented with a chief complaint of altered mental status. Per nursing the patient was just discharged from this pharmacy [facility] unit this afternoon. Upon arrival to the longterm the patient was reportedly hypoxic to 94% on room air. snf stated they did not have a pulse ox or supplemental O2 so the patient was sent back to the ED. The patient has a history of dementia and does not answer questions HPI update (21:30) The patient's longterm was called and stated they are unaware of why the pat ient was sent back to the ED. Nursing supervisor enrobing at [facility] was called and patient was supposed be returned back to the hospital secondary to supplemental O2. Location: [See above] Duration: [See above] Quality: [See above] Severity: [See above] Modifying factors: [see above] Context: [see above] Mode of transportation: [not driving] ED Past Medical Hx - Past Medical History Hx Hypertension: Yes Hx Diabetes: Yes Hx Dementia: Yes - Family History Family history: no significant - Social History Smoking Status: Unknown if ever smoked Substance Use Type: None - Medications Home Medications: Home Medications Medication Instructions Recorded Confirmed Last Taken Type Clopidogrel [Plavix] 75 mg PO DAILY #30 tablet 09/14/18 Unknown Rx Donepezil [Aricept] 10 mg PO QHS #30 tablet 09/14/18 Unknown Rx Folic Acid [Folvite] 1 mg PO DAILY #30 tablet 09/14/18 Unknown Rx Glimepiride [Amaryl] 1 mg PO QAM #30 tablet 09/14/18 Unknown Rx Losartan [Cozaar] 100 mg PO DAILY #30 tablet 09/14/18 Unknown Rx Mirabegron [Myrbetriq] 25 mg PO DAILY #30 tab.er.24h 09/14/18 Unknown Rx NIFEdipine [Nifedipine ER] 90 mg PO DAILY #30 tablet.er 09/14/18 Unknown Rx Pravastatin [Pravachol] 10 mg PO QHS #30 tablet 09/14/18 Unknown Rx Sodium Bicarbonate 1,300 mg PO BID #10 tablet 09/14/18 Unknown Rx hydroCHLOROthiazide [HCTZ] 25 mg PO DAILY #30 tablet 09/14/18 Unknown Rx risperiDONE [RisperDAL] 1 mg PO QHS #30 tablet 09/14/18 Unknown Rx ED Review of Systems ROS: Stated complaint: SOB Other details as noted in HPI Comment: Unobtainable due to pts medical conditions (dementia) Physical Exam - Physical Exam Vital Signs: Vital Signs 09/14/18 19:50 Temperature 98.6 F Pulse Rate 60 Respiratory 20 Rate Blood Pressure 184/73 O2 Sat by Pulse 100 Oximetry Physical Exam: GENERAL: The patient is well-developed well-nourished female lying on stretcher not appearing to be in acute distress. [] HEENT: Normocephalic. Atraumatic. Extraocular motions are intact. Patient has moist mucous membranes. NECK: Supple. Trachea midline CHEST/LUNGS: Clear to auscultation. There is no respiratory distress noted. HEART/CARDIOVASCULAR: Regular. There is no tachycardia. There is no gallop rub or murmur. ABDOMEN: Abdomen is soft, nontender. Patient has normal bowel sounds. There is no abdominal distention. SKIN: There is no rash. There is no edema. There is no diaphoresis. NEURO: The patient is awake, and alert. Patient does not answer questions. MUSCULOSKELETAL: There is no evidence of acute injury. ED Course Vital Signs 09/14/18 19:50 Temperature 98.6 F Pulse Rate 60 Respiratory 20 Rate Blood Pressure 184/73 O2 Sat by Pulse 100 Oximetry ED Medical Decision Making - Lab Data Result diagrams: 09/14/18 21:12 Critical care attestation.: If time is entered above; I have spent that time in minutes in the direct care of this critically ill patient, excluding procedure time. ED Disposition Clinical Impression: Dementia Disposition: DC-09 OP ADMIT IP TO THIS HOSP Is pt being admited?: Yes Does the pt Need Aspirin: No Condition: Fair Time of Disposition: 21:32 (patient to be moved upstairs)
[2018-09-14 21:26] LABS: Basophils # (Auto) 0.1 K/mm3 (0.0-0.1); Basophils % (Auto) 0.5 % (0.0-1.8); Eosinophils # (Auto) 0.1 K/mm3 (0.0-0.4); Eosinophils % (Auto) 1.1 % (0.0-4.3); Hematocrit 29.1 % (30.3-42.9); Hemoglobin 9.2 gm/dl (10.1-14.3); Lymphocytes # (Auto) 1.1 K/mm3 (1.2-5.4); Lymphocytes % (Auto) 8.5 % (13.4-35.0); Mean Corpuscular HGB Conc 31 % (30-34); Mean Corpuscular Volume 84 fl (79-97); Monocytes # (Auto) 0.7 K/mm3 (0.0-0.8); Monocytes % (Auto) 5.2 % (0.0-7.3); Platelet Count 167 K/mm3 (140-440); Red Blood Count 3.48 M/mm3 (3.65-5.03); Red Cell Distribution Width 14.8 % (13.2-15.2)
[2018-09-14 21:34] LABS: INR 1.33 (0.87-1.13); Partial Thromboplastin Time 26.6 Sec. (24.2-36.6)
[2018-09-14 22:17] VITALS: BP 178/84
[2018-09-14 22:51] LABS: Creatine Kinase MB 2.7 ng/mL (0.0-4.0)
[2018-09-14 22:53] LABS: Calcium 7.9 mg/dL (8.4-10.2)
[2018-09-14 23:40] LABS: Chol/HDL Ratio 2.92 %
== END 2018-09-14 22:13 | disposition admitted as inpatient to this hospital (09) ==
LOC: ED 19:44
DX: F03.90 Unspecified dementia, unspecified severity, without behavioral disturbance, psychotic disturbance, mood disturbance, and anxiety (principal); E11.9 Type 2 diabetes mellitus without complications; I10 Essential (primary) hypertension
CPT/HCPCS: 36415; 80053; 80061; 82550; 82553; 82805; 82962; 84484; 85025; 85610; 85730